=== PATIENT | female | born 1955 | race African-American/Black ===

== ENCOUNTER 2016-08-27 21:57 | Inpatient (IN) | payer BC ==
[2016-08-27] MEDS ORDERED: ONDANSETRON 4 MG/2 ML VIAL ONE (23:00)
[2016-08-27] MEDS ORDERED: morphine CARPU-JECT 4 MG/1 ML DISP.SYRIN ONE (23:00)
[2016-08-27 23:04] LABS: BASOPHIL 0.3 % (0-2.0); EOSINOPHIL 1.7 % (0-4.5); MCH 28.2 pg (25.7-33.7); MCHC 34.1 g/dl (32.0-36.0); MEAN CELL VOLUME 82.8 fl (80-96); MEAN PLT VOLUME 7.4 fl (7.5-11.1); NEUTROPHILS 70.2 % (42.8-82.8); PLATELET COUNT 163 K/MM3 (134-434); RDW 14.2 % (11.6-15.6); WHITE BLOOD COUNT 6.2 K/mm3 (4.0-10.0)
[2016-08-27] MEDS ORDERED: ONDANSETRON 4 MG/2 ML VIAL IVPB ONE (23:10)
[2016-08-27] MEDS ORDERED: morphine CARPU-JECT 4 MG/1 ML DISP.SYRIN IVPUSH ONE (23:10)
[2016-08-27] MEDS ORDERED: SODIUM CHLORIDE 1,000 ML IV STA (23:10)
--- NOTE | 2016-08-27 23:11 | PDOC ---
History of Present Illness - General History Source: Patient Exam Limitations: No Limitations <Og Chandler - Last Filed: 08/28/16 01:23> - General History Source: Patient, Family, Old Records Exam Limitations: No Limitations - History of Present Illness Initial Comments: 08/28/16 01:17 The patient is a 61 year old female, with a significant past medical history of anemia, HTN, diabetes, MA (2011), hepatitis C, chronic pancreatitis and chronic renal insufficiency, who presents to the emergency department with nonradiating epigastric pain since yesterday. The patient additionally reports feeling nauseous and 4 episodes of vomiting. The patient was most recently seen in this ED on 04/04/2016 and was admitted for pancreatitis. The patient states that the symptoms she is experiencing now are the same as when she was admitted for pancreatitis last year. The patient reports feeling weak over the past couple of days. The patient denies chest pain or shortness of breath. The patient denies fever, chills, cough, diarrhea or dysuria. The patient denies a prior history of gallstones or alcohol abuse. Her family is at the bedside. Allergies: Ibuprofen. Past Surgical History: None reported. Social History: Former smoker (quit in 2005). Denies alcohol use. Reports occasional marijuana use. PCP: Dr. Janet Foy <Marlin Pierson - Last Filed: 08/28/16 01:35> - General Chief Complaint: Pain Stated Complaint: STOMACH PAIN Time Seen by Provider: 08/27/16 22:39 Past History - Past Medical History Anemia: No Asthma: Yes Cancer: No Cardiac Disorders: Yes (MA SEPTEMBER 2011) CVA: No COPD: No CHF: No Dementia: No Diabetes: Yes GI Disorders: Yes (PANCREATITIS) Disorders: No HTN: Yes Hypercholesterolemia: No Liver Disease: Yes (hep c) Suicide Attempt (Hx): No Seizures: No Thyroid Disease: No - Surgical History Abdominal Surgery: No Appendectomy: No Cardiac Surgery: No Cholecystectomy: No Lung Surgery: No Neurologic Surgery: No Orthopedic Surgery: No - Immunization History Td Vaccination: No TDAP Vaccination: No Immunization Up to Date: Yes - Psycho/Social/Smoking Cessation Hx Anxiety: No Suicidal Ideation: No Smoking Status: No Smoking History: Never smoked Have you smoked in the past 12 months: No Number of Cigarettes Smoked Daily: 0 If you are a former smoker, when did you quit?: 2005 Information on smoking cessation initiated: No 'Breaking Loose' booklet given: 04/05/16 Hx Alcohol Use: No Drug/Substance Use Hx: No Substance Use Type: Marijuana Hx Substance Use Treatment: No <Og Chandler - Last Filed: 08/28/16 01:23> <Marlin Pierson - Last Filed: 08/28/16 01:35> - Past Medical History Allergies/Adverse Reactions: Allergies Allergy/AdvReac Type Severity Reaction Status Date / Time ibuprofen [From Motrin] Allergy Verified 08/27/16 22:05 Home Medications: Ambulatory Orders Insulin Glargine,Hum.rec.anlog [Lantus (10mL VIAL) -] 20 units SQ DAILY Albuterol Sulfate Inhaler - [Ventolin HFA Inhaler -] 2 inh PO Q4H PRN #1 inh Amlodipine Besylate [Norvasc -] 10 mg PO DAILY #30 tablet 11/22/15 Insulin Sliding Scale [Novolog Vial Sliding Scale -] 1 vial SQ ACHS units 11/21 Amlodipine Besylate [Norvasc -] 2.5 mg PO DAILY 08/27/16 Ascorbate Calcium [Vitamin C] 500 mg PO 08/27/16 Aspirin [ASA -] 81 mg PO DAILY 08/27/16 Cholecalciferol (Vitamin D3) [Vitamin D3] 2,000 unit PO DAILY 08/27/16 Quinapril HCl [Accupril] 10 mg PO DAILY 08/27/16 Review of Systems - Review of Systems Able to Perform ROS?: Yes Comments:: 08/28/16 00:35 GENERAL/CONSTITUTIONAL: +Weakness. No fever or chills. HEAD, EYES, EARS, NOSE AND THROAT: No change in vision. No ear pain or discharge. No sore throat. CARDIOVASCULAR: No chest pain or shortness of breath. RESPIRATORY: No cough, wheezing, or hemoptysis. GASTROINTESTINAL: +Nausea, vomiting, epigastric pain. No diarrhea or constipation. GENITOURINARY: No dysuria, frequency, or change in urination. MUSCULOSKELETAL: No joint or muscle swelling or pain. No neck or back pain. SKIN: No rash. NEUROLOGIC: No headache, vertigo, loss of consciousness, or change in strength/ sensation. ENDOCRINE: No increased thirst. No abnormal weight change. HEMATOLOGIC/LYMPHATIC: No anemia, easy bleeding, or history of blood clots. ALLERGIC/IMMUNOLOGIC: No hives or skin allergy. <Marlin Pierson - Last Filed: 08/28/16 01:35> *Physical Exam - Vital Signs Last Vital Signs Temp Pulse Resp BP Pulse Ox 98.1 F 77 14 153/91 97 08/27/16 22:08 08/27/16 22:08 08/27/16 22:08 08/27/16 22:08 08/27/16 22:08 <Og Chandler - Last Filed: 08/28/16 01:23> - Vital Signs Last Vital Signs Temp Pulse Resp BP Pulse Ox 98.1 F 77 14 153/91 97 08/27/16 22:08 08/27/16 22:08 08/27/16 22:08 08/27/16 22:08 08/27/16 22:08 - Physical Exam Comments: 08/28/16 00:39 GENERAL: Awake, alert, and fully oriented, in no acute distress. HEAD: No signs of trauma. EYES: PERRLA, EOMI, sclera anicteric, conjunctiva clear. ENT: Auricles normal inspection, hearing grossly normal, nares patent, oropharynx clear without exudates. Moist mucosa. NECK: Normal ROM, supple, no lymphadenopathy, JVD, or masses. LUNGS: Breath sounds equal, clear to auscultation bilaterally. No wheezes, and no crackles. HEART: Regular rate and rhythm, normal S1 and S2, no murmurs, rubs or gallops. ABDOMEN: Epigastric tenderness to palpation. Mild RUQ tenderness to palpation. Osseo sign is negative. Soft, normoactive bowel sounds. No guarding, no rebound. No masses. EXTREMITIES: Normal range of motion, no edema. No clubbing or cyanosis. No cords, erythema, or tenderness. NEUROLOGICAL: Cranial nerves II through XII intact. Normal speech, gait is deferred. SKIN: Warm, dry, normal turgor, no rashes or lesions noted. <Marlin Pierson - Last Filed: 08/28/16 01:35> Heart Score/ECG Review #1 ECG reviewed & interpreted by me at: 23:10 08/27/16 23:12 NSR 68, no std/enrique, normal axis, normal intervals, QTC 452 msec <Og Chandler - Last Filed: 08/28/16 01:23> ED Treatment Course - LABORATORY CBC & Chemistry Diagram: 08/27/16 22:58 08/27/16 22:58 - ADDITIONAL ORDERS Additional order review: 08/27/16 22:58 RBC 3.36 L MCV 82.8 MCHC 34.1 RDW 14.2 MPV 7.4 L Neutrophils % 70.2 Lymphocytes % 20.9 D Monocytes % 6.9 Eosinophils % 1.7 Basophils % 0.3 <Og Chandler - Last Filed: 08/28/16 01:23> - LABORATORY CBC & Chemistry Diagram: 08/27/16 22:58 08/27/16 22:58 - ADDITIONAL ORDERS Additional order review: 08/27/16 22:58 RBC 3.36 L MCV 82.8 MCHC 34.1 RDW 14.2 MPV 7.4 L Neutrophils % 70.2 Lymphocytes % 20.9 D Monocytes % 6.9 Eosinophils % 1.7 Basophils % 0.3 - Medications Given in the ED: ED Medications Discontinued Medications Generic Name Dose Route Start Last Admin Trade Name Freq PRN Reason Stop Dose Admin Morphine Sulfate 4 mg 08/27/16 23:10 08/27/16 23:22 Morphine Injection - IVPUSH 08/27/16 23:11 4 mg ONCE ONE Administration Ondansetron HCl 4 mg 08/27/16 23:10 08/27/16 23:22 Zofran Injection IVPB 08/27/16 23:11 4 mg ONCE ONE Administration <Marlin Pierson - Last Filed: 08/28/16 01:35> Medical Decision Making - Medical Decision Making 08/27/16 23:09 A portion of this note was documented by scribe services under my direction. I have reviewed the details of the note, within reason, and agree with the documentation with the following case summary and management plan written by me. Patient treated in the ED. Patient arrives by... to the emergency department. Nursing notes are reviewed and incorporated into the medical decision-making. Vital signs reviewed. Peripheral IV access obtained by the nurse, laboratory studies are drawn and sent, reviewed and interpreted by myself. Vital Signs Temp Pulse Resp BP Pulse Ox 98.1 F 77 14 153/91 97 08/27/16 22:08 08/27/16 22:08 08/27/16 22:08 08/27/16 22:08 08/27/16 22:08 61 year old female with past medical history of hepatitis C, diabetes, chronic pancreatitis, chronic renal insufficiency, anemia, hypertension presents with epigastric pain since yesterday. Denies radiation but reports nausea and 4 episodes of vomiting. She reports that this feels exactly like her pancreatitis. Denies history of gallstones or alcohol use. Denies fevers or chills. Does report feeling generally weak. Denies midsternal chest pain. We'll rule out pancreatitis. Labs including lipase. Low suspicion for acute coronary syndrome but we'll send a troponin and EKG and chest x-ray. 08/28/16 01:23 CBC, BMP 08/27/16 22:58 08/27/16 22:58 CMP Sodium 141 mmol/L (136-145) 08/27/16 22:58 Potassium 4.1 mmol/L (3.5-5.1) 08/27/16 22:58 Chloride 111 mmol/L (98-107) H 08/27/16 22:58 Carbon Dioxide 25 mmol/L (21-32) 08/27/16 22:58 Anion Gap 5 (8-16) L 08/27/16 22:58 BUN 31 mg/dL (7-18) H D 08/27/16 22:58 Creatinine 2.5 mg/dL (0.55-1.02) H D 08/27/16 22:58 Creat Clearance w eGFR 19.45 (>60) 08/27/16 22:58 Random Glucose 53 mg/dL (74-106) L D 08/27/16 22:58 Calcium 8.3 mg/dL (8.5-10.1) L 08/27/16 22:58 Total Bilirubin 0.3 mg/dL (0.2-1.0) 08/27/16 22:58 AST 13 U/L (15-37) L D 08/27/16 22:58 ALT 15 U/L (12-78) D 08/27/16 22:58 Alkaline Phosphatase 64 U/L (45-117) D 08/27/16 22:58 Creatine Kinase 107 IU/L (26-192) 08/27/16 22:58 Troponin I < 0.02 ng/ml (0.00-0.05) 08/27/16 22:58 Total Protein 6.9 g/dl (6.4-8.2) D 08/27/16 22:58 Albumin 3.4 g/dl (3.4-5.0) D 08/27/16 22:58 Lipase 05698 U/L (73-393) H 08/27/16 22:58 Ultrasound ordered, pending official read. Lipase 55696. Pancreatitis. Case discussed with Dr. Suresh. She accepts the patient for med/surg admission. Case discussed in detail with admitting physician including history, physical exam and ancillary studies. Admitting physician has assumed care for the patient, will follow all pending diagnostics and will complete the evaluation and treatment. <Og hCandler - Last Filed: 08/28/16 01:23> - Medical Decision Making 08/28/16 01:35 EXAM: US/ ABDOMEN US - LIMITED Reviewed By: Dr. Jitendra Capone IMPRESSION: Normal appearance of the liver, pancreas and gallbladder. Mild to moderate ectasia of the CBD. Increased echogenicity of the right renal parenchyma. Parenchymal disease can have this appearance. Further evaluation of this process in indicated. <Marlin Pierson - Last Filed: 08/28/16 01:35> *DC/Admit/Observation/Transfer - Discharge Dispostion Admit: Yes <Og Chandler - Last Filed: 08/28/16 01:23> - Attestations Scribe Attestion: 08/27/16 23:25 Documentation prepared by Marlin Pierson, acting as medical sales associate for Og Chandler MD. <Marlin Pierson - Last Filed: 08/28/16 01:35> Diagnosis at time of Disposition: Pancreatitis Qualifiers: Chronicity: acute Pancreatitis type: unspecified pancreatitis type Qualified Code(s): K85.9 - Acute pancreatitis, unspecified - Referrals Referrals: STAFF,NOT ON [Primary Care Provider] -
[2016-08-27 23:16] LABS: INR 1.03 (0.82-1.09); PROTHROMBIN TIME (PATIENT) 11.3 SEC (9.98-11.88)
[2016-08-27 23:18] LABS: ACTIVATED PTT 32.7 SECONDS (26.9-34.4)
[2016-08-27 23:55] LABS: ALBUMIN 3.4 g/dl (3.4-5.0); ANION GAP 5 (8-16); CALCIUM 8.3 mg/dL (8.5-10.1); CO2 25 mmol/L (21-32); CREATININE 2.5 mg/dL (0.55-1.02); GLUCOSE,RANDOM 53 mg/dL (74-106); SGOT/AST 13 U/L (15-37); SGPT/ALT 15 U/L (12-78)
[2016-08-27 23:59] LABS: ALK PHOS 64 U/L (45-117); BILIRUBIN,TOTAL 0.3 mg/dL (0.2-1.0); TOT PROT 6.9 g/dl (6.4-8.2); TROPONIN I < 0.02 ng/ml (0.00-0.05)
[2016-08-28] MEDS ORDERED: SODIUM CHLORIDE 1,000 ML IV SCH (00:45)
--- NOTE | 2016-08-28 01:10 | HP ---
CHIEF COMPLAINT: Abdominal Pain, Vomiting PCP: PMD Not on staff HISTORY OF PRESENT ILLNESS: This is a 61 y/o female with a PMHx of: Hepatitis C (on Zepatier), [place], HTN, DM, Chronic Renal Insufficiency, Anemia, Asthma. Who presents to the emergency department with epigastric pain and vomiting x 1 day. Patient reports having 4- 5 non-hematemesis vomiting episodes. Patient reports the pain as sharp and constant. Patient denies drinking alcohol or eating any foods that would exacerbate her condition. Patient denies fever, chills, cough, SOB, CP, diarrhea , constipation, dysuria. ER course was notable for: (1) Lipase 06626 (2) BUN 31, Cr 2.5 (3) Glucose 53 Recent Travel: None PAST MEDICAL HISTORY: See HPI PAST SURGICAL HISTORY: See HPI Social History: Smoking: Former Alcohol: Denies Drugs: Marijuana daily (medicinal for appetite stimulator) Family History: Father: Cardiac Mother- Hodgkin's Lymphoma Allergies ibuprofen [From Motrin] Allergy (Verified 08/27/16 22:05) HOME MEDICATIONS: Home Medications Medication Instructions Recorded Insulin Glargine,Hum.rec.anlog 20 units SQ DAILY 11/17/15 [Lantus (10mL VIAL) -] Albuterol Sulfate Inhaler - 2 inh PO Q4H PRN #1 inh 11/22/15 [Ventolin HFA Inhaler -] Amlodipine Besylate [Norvasc -] 10 mg PO DAILY #30 tablet 11/22/15 Insulin Sliding Scale [Novolog 1 vial SQ ACHS units 11/22/15 Vial Sliding Scale -] Amlodipine Besylate [Norvasc -] 2.5 mg PO DAILY 08/27/16 Ascorbate Calcium [Vitamin C] 500 mg PO 08/27/16 Aspirin [ASA -] 81 mg PO DAILY 08/27/16 Cholecalciferol (Vitamin D3) 2,000 unit PO DAILY 08/27/16 [Vitamin D3] Quinapril HCl [Accupril] 10 mg PO DAILY 08/27/16 REVIEW OF SYSTEMS CONSTITUTIONAL: Absent: fever, chills, diaphoresis, generalized weakness, malaise, loss of appetite, weight change HEENT: Absent: rhinorrhea, nasal congestion, throat pain, throat swelling, difficulty swallowing, mouth swelling, ear pain, eye pain, visual changes CARDIOVASCULAR: Absent: chest pain, syncope, palpitations, irregular heart rate, lightheadedness , peripheral edema RESPIRATORY: Absent: cough, shortness of breath, dyspnea with exertion, orthopnea, wheezing, stridor, hemoptysis GASTROINTESTINAL: abdominal pain, nausea, vomiting Absent: abdominal distension, diarrhea, constipation, melena, hematochezia GENITOURINARY: Absent: dysuria, frequency, urgency, hesitancy, hematuria, flank pain, genital pain MUSCULOSKELETAL: Absent: myalgia, arthralgia, joint swelling, back pain, neck pain SKIN: Absent: rash, itching, pallor HEMATOLOGIC/IMMUNOLOGIC: Absent: easy bleeding, easy bruising, lymphadenopathy, frequent infections ENDOCRINE: Absent: unexplained weight gain, unexplained weight loss, heat intolerance, cold intolerance NEUROLOGIC: Absent: headache, focal weakness or paresthesias, dizziness, unsteady gait, seizure, mental status changes, bladder or bowel incontinence PSYCHIATRIC: Absent: anxiety, depression, suicidal or homicidal ideation, hallucinations. PHYSICAL EXAMINATION Vital Signs - 24 hr 08/27/16 22:08 Temperature 98.1 F Pulse Rate 77 Respiratory 14 Rate Blood Pressure 153/91 O2 Sat by Pulse 97 Oximetry (%) GENERAL: Awake, alert, and fully oriented, in no acute distress. HEAD: Normal with no signs of trauma. EYES: Pupils equal, round and reactive to light, extraocular movements intact, sclera anicteric, conjunctiva clear. No lid lag. EARS, NOSE, THROAT: Ears normal, nares patent, oropharynx clear without exudates. Moist mucous membranes. NECK: Normal range of motion, supple without lymphadenopathy, JVD, or masses. LUNGS: Breath sounds equal, clear to auscultation bilaterally. No wheezes, and no crackles. No accessory muscle use. HEART: Regular rate and rhythm, normal S1 and S2 without murmur, rub or gallop. ABDOMEN: +tenderness to Epigastrium, RUQ +guarding. Soft, not distended, normoactive bowel sounds. no rebound, no masses. No hepatomegaly or splenomegaly. MUSCULOSKELETAL: Normal range of motion at all joints. No bony deformities or tenderness. No CVA tenderness. UPPER EXTREMITIES: 2+ pulses, warm, well-perfused. No cyanosis. No clubbing. Cap refill <2 seconds. No peripheral edema. LOWER EXTREMITIES: 2+ pulses, warm, well-perfused. No calf tenderness. No peripheral edema. NEUROLOGICAL: Cranial nerves II-XII intact. Normal speech. Gait not observed. PSYCHIATRIC: Cooperative. Good eye contact. Appropriate mood and affect. SKIN: Warm, dry, normal turgor, no rashes or lesions noted. Laboratory Results - last 24 hr 08/27/16 08/27/16 08/27/16 22:58 22:58 22:58 WBC 6.2 RBC 3.36 L Hgb 9.5 L D Hct 27.8 L MCV 82.8 MCHC 34.1 RDW 14.2 Plt Count 163 MPV 7.4 L Neutrophils % 70.2 Lymphocytes % 20.9 D Monocytes % 6.9 Eosinophils % 1.7 Basophils % 0.3 INR 1.03 PTT (Actin FS) 32.7 Sodium 141 Potassium 4.1 Chloride 111 H Carbon Dioxide 25 Anion Gap 5 L BUN 31 H D Creatinine 2.5 H D Creat Clearance w eGFR 19.45 Random Glucose 53 L D Calcium 8.3 L Total Bilirubin 0.3 AST 13 L D ALT 15 D Alkaline Phosphatase 64 D Creatine Kinase 107 Troponin I < 0.02 Total Protein 6.9 D Albumin 3.4 D Lipase 94072 H ASSESSMENT/PLAN: This is a 61 y/o female with a PMHx of: Hepatitis C, HTN, CA, Pancreatitis, DM, Asthma, Chronic Renal Insufficiency, Anemia. Who presents to the ED with epigastric pain and vomiting. Admitted for Acute on Chronic Pancreatitis for further evaluation of their emergent condition. Plan: FEN - D50.45NS@75ml/hr - Replete lytes prn - NPO Code Status: Full Code Dispo: Inpatient medical care required Problem List - Problem (1) Pancreatitis Assessment/Plan: - Patient has a hx of pancreatitis, her last attack was last fall. Patient reports being compliance with her medications and refraining from Alcohol. - Lipase 17483 - Given IVF, Morphine, Zofran in ED - Will continue IVF - Continue Morphine and Zofran - Monitor CBC - Consider GI if condition worsens Code(s): K85.9 - ACUTE PANCREATITIS, UNSPECIFIED * DO NOT USE * Qualifiers: Chronicity: acute Pancreatitis type: unspecified pancreatitis type Qualified Code(s): K85.9 - Acute pancreatitis, unspecified (2) Abdominal pain Assessment/Plan: - Likely secondary to Acute on Chronic Pancreatitis - See Above Code(s): R10.9 - UNSPECIFIED ABDOMINAL PAIN (3) Acute on chronic renal failure Assessment/Plan: - Cr 2.5 at Baseline - Monitor renal function - Avoid nephrotoxic drugs - f/u with Nephrology in outpatient upon d/c Code(s): N17.9 - ACUTE KIDNEY FAILURE, UNSPECIFIED N18.9 - CHRONIC KIDNEY DISEASE, UNSPECIFIED (4) Asthma Assessment/Plan: - Well Controlled - Not using Albuterol per patient - Continue to monitor and treat with interventions accordingly Code(s): J45.909 - UNSPECIFIED ASTHMA, UNCOMPLICATED (5) Diabetes Assessment/Plan: - BGMs - Will hold ISS for now 2/2 serum glucose 55 Code(s): E11.9 - TYPE 2 DIABETES MELLITUS WITHOUT COMPLICATIONS (6) Hypertension Assessment/Plan: - Monitor BP - Continue home meds Code(s): I10 - ESSENTIAL (PRIMARY) HYPERTENSION (7) DVT prophylaxis Assessment/Plan: - OOB - SCDs - Heparin SQ Code(s): OCD2303 - Visit type - Emergency Visit Emergency Visit: Yes ED Registration Date: 08/28/16 Care time: The patient presented to the Emergency Department on the above date and was hospitalized for further evaluation of their emergent condition. - New Patient This patient is new to me today: Yes Date on this admission: 08/28/16 - Critical Care Critical Care patient: No
[2016-08-28] MEDS ORDERED: morphine CARPU-JECT 4 MG/1 ML DISP.SYRIN IVPUSH ONE (01:23)
[2016-08-28] MEDS ORDERED: morphine CARPU-JECT 4 MG/1 ML DISP.SYRIN ONE (01:24)
[2016-08-28] MEDS ORDERED: DEXTROSE 5%-0.45% SALINE 1,000 ML IV SCH (03:15)
[2016-08-28 03:57] VITALS: BMI 19.9
[2016-08-28 07:45] LABS: BASOPHIL 0.4 % (0-2.0); EOSINOPHIL 0.5 % (0-4.5); MCH 27.5 pg (25.7-33.7); MCHC 32.6 g/dl (32.0-36.0); MEAN CELL VOLUME 84.2 fl (80-96); MEAN PLT VOLUME 7.9 fl (7.5-11.1); NEUTROPHILS 82.7 % (42.8-82.8); PLATELET COUNT 140 K/MM3 (134-434); RDW 14.4 % (11.6-15.6); WHITE BLOOD COUNT 4.7 K/mm3 (4.0-10.0)
[2016-08-28 08:16] LABS: CALCIUM 7.6 mg/dL (8.5-10.1); CREATININE 2.4 mg/dL (0.55-1.02)
[2016-08-28] MEDS: LACTATED RINGERS SOLUTION 1,000 ML IV SCH ×2 (08:33→15:27)
[2016-08-28] MEDS: ZEPATIER PO SCH (08:44)
[2016-08-28] MEDS: morphine CARPU-JECT 2 MG/1 ML DISP.SYRIN IVPUSH PRN ×3 (09:56→21:30)
[2016-08-28] MEDS: ONDANSETRON 4 MG/2 ML VIAL IVPB PRN ×3 (10:01→18:19)
[2016-08-28 11:52] LABS: URINE APPEARANCE CLEAR; URINE BILIRUBIN NEGATIVE (NEGATIVE); URINE BLOOD NEGATIVE (NEGATIVE); URINE COLOR STRAW; URINE GLUCOSE (UA) NEGATIVE (NEGATIVE); URINE KETONE NEGATIVE (NEGATIVE); URINE LEUK ESTERASE NEGATIVE (NEGATIVE); URINE NITRITE NEGATIVE (NEGATIVE); URINE PROTEIN 2+ (NEGATIVE); URINE UROBILINOGEN NEGATIVE E.U./dl (0.2-1.0)
[2016-08-28 11:54] LABS: URINE MUCUS FEW; URINE RBC 6 /hpf (0-3); URINE WBC 1 /hpf (3-5)
--- NOTE | 2016-08-28 12:08 | HOSP ---
Physical Examination Vital Signs: Vital Signs Temperature 99 F 08/28/16 08:00 Pulse Rate 79 08/28/16 08:00 Respiratory Rate 18 08/28/16 08:00 Blood Pressure 150/81 08/28/16 08:00 O2 Sat by Pulse Oximetry (%) 98 08/28/16 04:04 Labs: CBC, BMP 08/28/16 06:30 08/28/16 06:30 Hospitalist Encounter Assessment: Subjective: Pt seen and examined. She states she is feeling about the same. Her pain is improved by morphine, no further vomiting. Denies fever, chills. Events: Low grade fever 99 Objective: PE Neuro: alert, awake, cn 2-12intact Pulm: CTAB CV: s1 s2 rrr no mrg Abd: ++melina umbilical tenderness to light palpation, soft, low abd scar healed Ext: warm, no le edema CBCD WBC 4.7 K/mm3 (4.0-10.0) 08/28/16 06:30 RBC 3.33 M/mm3 (3.60-5.2) L 08/28/16 06:30 Hgb 9.2 GM/dL (10.7-15.3) L 08/28/16 06:30 Hct 28.0 % (32.4-45.2) L 08/28/16 06:30 MCV 84.2 fl (80-96) 08/28/16 06:30 MCHC 32.6 g/dl (32.0-36.0) 08/28/16 06:30 RDW 14.4 % (11.6-15.6) 08/28/16 06:30 Plt Count 140 K/MM3 (134-434) 08/28/16 06:30 MPV 7.9 fl (7.5-11.1) 08/28/16 06:30 08/27/16 08/28/16 22:58 06:30 Triglycerides 80 D Cholesterol 125 Total LDL Cholesterol 76 HDL Cholesterol 62 H Total Amylase 557 H D Lipase 48067 H Current Medications Generic Name Dose Route Start Last Admin Trade Name Freq PRN Reason Stop Dose Admin Lactated Ringer's 1,000 mls @ 125 mls/hr 08/28/16 07:15 08/28/16 08:33 Lactated Ringers Solution IV 125 mls/hr ASDIR MELISSA Administration Morphine Sulfate 2 mg 08/28/16 02:22 08/28/16 09:56 Morphine Injection - IVPUSH 2 mg Q4H PRN Administration PAIN Non-Formulary Med 1 each 08/28/16 08:45 08/28/16 08:44 Zepatier 50 Mg/100 PO Not Given Mg DAILY@0700 [facility] Ondansetron HCl 4 mg 08/28/16 01:18 08/28/16 10:01 Zofran Injection IVPB 4 mg Q6H PRN Administration NAUSEA Imaging: - Abd US: mild-mod ectasia CBD, no calculi, sludge, increase right renal parenchyma Assessment: 61 year old female with pmhx Hepatitis C (on Zepatier), [place], HTN, DM II, CKD, Anemia, Asthma admitted with epigastric pain and vomiting x 1 day. Patient reports having 4-5 non-hematemesis vomiting episodes. Plan: 1. Acute Pancreatitis - Unclear etiology, denies ETOH and no GB stones noted - LR @ 125cc/hr - CTAP w/o contrast - Morphine PRN pain - NPO - GI consulted 2. Hx of Hep C - Continue Zepatier (pharmacy has profiled med, pt took this AM) 3. TARAS on CKD - Possible d/t to dehydration 2/2 vomiting - Pt sees Dr. Arajuo as outpt as of 1month ago - US shows unchanged hyperechoic right kidney - D/w Dr. Dempsey will see pt, and aware of LR, K is stable 4. HTN - Hold PO norvasc and accupril - Will give IV as needed 5. Anemia - Possibly of chronic dz - Currently, hgb stable - Iron studies ordered 6. DM II - Low blood sugars since admission, will monitor give dextrose prn - ISS, BGM ACHS - Pt reports being sensitive to novolog - Check Hgb a1c
[2016-08-28] MEDS ORDERED: PT OWN MED DRAWER 7, Y5N ONE (12:28)
--- NOTE | 2016-08-28 15:11 | CONSULT ---
Consult - text type - Consultation Consultation Note: Renal Consult for CKD and Proteinuria This is a 61 year old woman with PMhx of CKD Stage 4 with Baseline Cr ~2.2-2.4, Hepatitis C, Pancreatitis, Hypertension, DM > 20 years who presented to the ED with complaints of Epigastric Abd pain and N/V and found to have acute pancreatitis with BUN/Cr of 29/2.4. Pt is followed by Dr. Naa Christensen for her CKD. Pt continues to have 7/10 abd pain. No further Nausea/Vomiting as she is NPO. Reports good urine output. NO NSAID use. No recent contrast exposure. No flank pain. No Hx of kidney stones or recurrent UTIs. No sob or chest pain. No fever or chills. Denies any ETOH use. No Hx of gullstones. PMhx: as per HPI Allergies: NKDA Family Hx: NC Social hx: No T/A/D ROS: as per HPI, all other pertinent ros negative Home Meds: Home Medications Medication Instructions Recorded Insulin Glargine,Hum.rec.anlog 20 units SQ DAILY 11/17/15 [Lantus (10mL VIAL) -] Albuterol Sulfate Inhaler - 2 inh PO Q4H PRN #1 inh 11/22/15 [Ventolin HFA Inhaler -] Amlodipine Besylate [Norvasc -] 10 mg PO DAILY #30 tablet 11/22/15 Insulin Sliding Scale [Novolog 1 vial SQ ACHS units 11/22/15 Vial Sliding Scale -] Amlodipine Besylate [Norvasc -] 2.5 mg PO DAILY 08/27/16 Ascorbate Calcium [Vitamin C] 500 mg PO DAILY 08/27/16 Aspirin [ASA -] 81 mg PO DAILY 08/27/16 Cholecalciferol (Vitamin D3) 2,000 unit PO DAILY 08/27/16 [Vitamin D3] Quinapril HCl [Accupril] 10 mg PO DAILY 08/27/16 Elbasvir/Grazoprevir [Zepatier 1 each PO 08/28/16 50-100 mg Tablet] Vital Signs Temperature 98.4 F 08/28/16 14:28 Pulse Rate 73 08/28/16 14:28 Respiratory Rate 18 08/28/16 08:00 Blood Pressure 155/70 08/28/16 14:28 O2 Sat by Pulse Oximetry (%) 98 08/28/16 04:04 Intake & Output 08/25/16 08/26/16 08/27/16 08/28/16 23:59 23:59 23:59 23:59 Intake Total 100 Balance 100 Weight 106 lb 105 lb 9.6 oz Gen: Mild distress from Abd pain HEENT: NC/AT, Dry MM, No JVD CVS: RRR, No M/R Lungs :CTA Abd: soft + tenderness Ext: No edema, clubbing or cyanosis : No bladder distension Neurou: AAOx3, no focal defects CBC, BMP 08/28/16 06:30 08/28/16 06:30 Current Medications Lactated Ringer's (Lactated Ringers Solution) 1,000 mls @ 125 mls/hr IV ASDIR [facility] Last Admin: 08/28/16 08:33 Dose: 125 mls/hr Morphine Sulfate (Morphine Injection -) 2 mg IVPUSH Q4H PRN PRN Reason: PAIN Last Admin: 08/28/16 09:56 Dose: 2 mg Non-Formulary Med Zepatier 50 Mg/100 Mg 1 each PO DAILY@0700 [facility] Last Admin: 08/28/16 08:44 Dose: Not Given Ondansetron HCl (Zofran Injection) 4 mg IVPB Q6H PRN PRN Reason: NAUSEA Last Admin: 08/28/16 10:01 Dose: 4 mg A/p 61 year old woman with PMhx of CKD Stage 4 with Baseline Cr ~2.2-2.4, Hepatitis C, Pancreatitis, Hypertension, DM > 20 years who presented to the ED with complaints of Epigastric Abd pain and N/V and found to have acute pancreatitis with BUN/Cr of 29/2.4. #CKD Stage 4 with sub-nephrotic proteinuria etiology of CKD likey diabetic nephropathy given long standing DM. Less likely GN (MPGN) given normal serologic studies BUN/Cr at baseline, although worsening in renal function noted over the past year. Pt is now on ACEi (not on HERBIE during November admission which could contribute to sligthly worsening GFR) Hold ACEi for now as pt is NPO and has acute pancreatitis Continue IVF hydration - LR is ok as long as K is stable Dose all meds for Cr Cl less then 20 Pt may benifit from renal scan to r/o obstruction (US done in November showed dilated renal pelvis on Right kIdney) but can be done as outpatient Check Phos levels Check Rheum Factor #Acute Pancreatitis continue pain control and IVF Imaging studies as per primary GI Evaluation #Hypertension Trend BP if consistently > 150/100 restart amlodpine #DM Check Hgb A1C insulin sliding scale as needed #Hepatitis C Continue tx as per GI Thank you Will follow
--- NOTE | 2016-08-28 16:37 | EKG ---
Test Reason : Blood Pressure : / mmHG Vent. Rate : 068 BPM Atrial Rate : 068 BPM P-R Int : 134 ms QRS Dur : 090 ms QT Int : 426 ms P-R-T Axes : 073 021 075 degrees QTc Int : 452 ms NORMAL SINUS RHYTHM WITH SINUS ARRHYTHMIA POSSIBLE LEFT ATRIAL ENLARGEMENT POOR R WAVE PROGRESSION Confirmed by MD ULISES, ADRYAN ([id number]) on 08/28/2016 4:37:18 PM Referred By: Confirmed By:ADRYAN MONTGOMERY MD
--- NOTE | 2016-08-28 18:17 | CON.GI ---
Consult Consult Specialty:: Gastroenterology Referred by:: Dr. Menjivar Reason for Consultation:: Abdominal pain and vomiting - History of Present Illness Chief Complaint: Sudden onset epigastric pain and vomiting yesterday History of Present Illness: 61W diabetic, being treated for HCV with Zepatier ( by my associate Dr Orellana- recently started) and h/o chronic pancreatitis related to pancreas divisum developed severe epigastric pain and vomiting yesterday. It is reminiscent of her previous bouts with pancreatitis. She recalls that attempt were made by Dr Donis at [facility] to do a minor sphincterotomy but this was unsuccessful. She stopped using alcohol many years ago and had a single cocktail on but not since. Her last colonoscopy was done by Dr. Collado in 2010 when a hyperplastic rectal polyp was removed. A right colon lipoma was noted as well as diverticulosis. EGD on 09/18/11 revealed an antral ulcer and GERD. - History Source History Provided By: Patient Limitations to Obtaining History: No Limitations - Past Medical History Cardio/Vascular: Yes: HTN, [place] (on 1999 with unsuccessful stenting), Other ( peripheral vascular disease) Pulmonary: Yes: COPD Gastrointestinal: Yes: Diverticulosis, GERD, Pancreatitis (pancreas divisum), Other (hyperplastic rectal polyp 2010, antral ulcer 2011) Hepatobiliary: Yes: Hepatitis C (being treated with Zepatier week 8) Renal/: Yes: Renal Inusuff Reproductive: Yes: Ectopic (x 2) Infectious Disease: Yes: Other (hep c) Endocrine: Yes: Diabetes Mellitus (retinopathy, neuropathy and nephropathy ) - Past Surgical History Past Surgical History: Yes: , Hysterectomy (leaving left ovary inact), Tonsillectomy Additional Surgical History: bunionectomy - Alcohol/Substance Use Hx Alcohol Use: No - Smoking History Smoking history: Former smoker Have you smoked in the past 12 months: No Aproximately how many cigarettes per day: 0 If you are a former smoker, when did you quit?: 2005 - Social History Usual Living Arrangement: With Spouse ADL: Independent 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 [employer] [address] of : [employer] History of Recent Travel: Yes Home Medications - Allergies Allergies/Adverse Reactions: Allergies Allergy/AdvReac Type Severity Reaction Status Date / Time ibuprofen [From Motrin] Allergy Verified 08/27/16 22:05 - Home Medications Home Medications: Ambulatory Orders Insulin Glargine,Hum.rec.anlog [Lantus (10mL VIAL) -] 20 units SQ DAILY Albuterol Sulfate Inhaler - [Ventolin HFA Inhaler -] 2 inh PO Q4H PRN #1 inh Amlodipine Besylate [Norvasc -] 10 mg PO DAILY #30 tablet 11/22/15 Insulin Sliding Scale [Novolog Vial Sliding Scale -] 1 vial SQ ACHS units 11/21 Amlodipine Besylate [Norvasc -] 2.5 mg PO DAILY 08/27/16 Ascorbate Calcium [Vitamin C] 500 mg PO DAILY 08/27/16 Aspirin [ASA -] 81 mg PO DAILY 08/27/16 Cholecalciferol (Vitamin D3) [Vitamin D3] 2,000 unit PO DAILY 08/27/16 Quinapril HCl [Accupril] 10 mg PO DAILY 08/27/16 Elbasvir/Grazoprevir [Zepatier 50-100 mg Tablet] 1 each PO 08/28/16 Family Disease History - Family Disease History Family Disease History: Diabetes: Sister (CVA), CA: Mother (Hodgkins Disease), Other: Sister Other Family History: Maternal aunt with lung cancer. maternal GM had ovarian cancer Review of Systems - Review of Systems Constitutional: reports: No Symptoms Eyes: reports: No Symptoms, Blurred Vision HENT: reports: No Symptoms Neck: reports: No Symptoms Cardiovascular: reports: No Symptoms Respiratory: reports: Exercise Intolerance Gastrointestinal: reports: Abdominal Pain, Vomiting Physical Exam-GI Vital Signs: Vital Signs Temperature 98.4 F 08/28/16 14:28 Pulse Rate 73 08/28/16 14:28 Respiratory Rate 18 08/28/16 08:00 Blood Pressure 155/70 08/28/16 14:28 O2 Sat by Pulse Oximetry (%) 98 08/28/16 04:04 CBC,CMP WBC 4.7 K/mm3 (4.0-10.0) 08/28/16 06:30 RBC 3.33 M/mm3 (3.60-5.2) L 08/28/16 06:30 Hgb 9.2 GM/dL (10.7-15.3) L 08/28/16 06:30 Hct 28.0 % (32.4-45.2) L 08/28/16 06:30 MCV 84.2 fl (80-96) 08/28/16 06:30 MCHC 32.6 g/dl (32.0-36.0) 08/28/16 06:30 RDW 14.4 % (11.6-15.6) 08/28/16 06:30 Plt Count 140 K/MM3 (134-434) 08/28/16 06:30 MPV 7.9 fl (7.5-11.1) 08/28/16 06:30 Neutrophils % 82.7 % (42.8-82.8) 08/28/16 06:30 Lymphocytes % 10.8 % (8-40) D 08/28/16 06:30 Monocytes % 5.6 % (3.8-10.2) 08/28/16 06:30 Eosinophils % 0.5 % (0-4.5) 08/28/16 06:30 Basophils % 0.4 % (0-2.0) 08/28/16 06:30 Sodium 145 mmol/L (136-145) 08/28/16 06:30 Potassium 4.7 mmol/L (3.5-5.1) 08/28/16 06:30 Chloride 116 mmol/L (98-107) H 08/28/16 06:30 Carbon Dioxide 22 mmol/L (21-32) 08/28/16 06:30 Anion Gap 7 (8-16) L 08/28/16 06:30 BUN 29 mg/dL (7-18) H 08/28/16 06:30 Creatinine 2.4 mg/dL (0.55-1.02) H 08/28/16 06:30 Creat Clearance w eGFR 19.45 (>60) 08/27/16 22:58 POC Glucometer 77 UNITS (()) 08/28/16 05:55 Random Glucose 67 mg/dL (74-106) L D 08/28/16 06:30 Calcium 7.6 mg/dL (8.5-10.1) L 08/28/16 06:30 Total Bilirubin 0.3 mg/dL (0.2-1.0) 08/27/16 22:58 AST 13 U/L (15-37) L D 08/27/16 22:58 ALT 15 U/L (12-78) D 08/27/16 22:58 Alkaline Phosphatase 64 U/L (45-117) D 08/27/16 22:58 Creatine Kinase 107 IU/L (26-192) 08/27/16 22:58 Troponin I < 0.02 ng/ml (0.00-0.05) 08/27/16 22:58 Total Protein 6.9 g/dl (6.4-8.2) D 08/27/16 22:58 Albumin 3.4 g/dl (3.4-5.0) D 08/27/16 22:58 Triglycerides 80 mg/dL (35-160) D 08/28/16 06:30 Cholesterol 125 mg/dL (50-200) 08/28/16 06:30 Total LDL Cholesterol 76 mg/dL (5-100) 08/28/16 06:30 HDL Cholesterol 62 mg/dL (40-60) H 08/28/16 06:30 Total Amylase 557 U/L (25-115) H D 08/28/16 06:30 Lipase 78333 U/L (73-393) H 08/27/16 22:58 Current Medications Generic Name Dose Route Start Last Admin Trade Name Freq PRN Reason Stop Dose Admin Lactated Ringer's 1,000 mls @ 125 mls/hr 08/28/16 07:15 08/28/16 15:27 Lactated Ringers Solution IV 125 mls/hr ASDIR [facility] Administration Morphine Sulfate 2 mg 08/28/16 02:22 08/28/16 15:11 Morphine Injection - IVPUSH 2 mg Q4H PRN Administration PAIN Non-Formulary Med 1 each 08/28/16 08:45 08/28/16 08:44 Zepatier 50 Mg/100 PO Not Given Mg DAILY@0700 [facility] Ondansetron HCl 4 mg 08/28/16 01:18 08/28/16 18:19 Zofran Injection IVPB 4 mg Q6H PRN Administration NAUSEA Constitutional: Yes: Calm Eyes: Yes: Conjunctiva Clear HENT: Yes: Normocephalic Neck: Yes: Supple Cardiovascular: Yes: Regular Rate and Rhythm Respiratory: Yes: CTA Bilaterally Gastrointestinal Inspection: Yes: Distention, Scars (healed vertical right paramedian suprapubic incision) ...Auscultate: Yes: Normoactive Bowel Sounds ...Palpate: Yes: Tenderness, Epigastium ...Percussion: Yes: Tympanitic ...Rectal Exam: Yes: Deferred (patient declined) Labs: CBC, BMP 08/28/16 06:30 08/28/16 06:30 INR, PTT INR 1.03 (0.82-1.09) 08/27/16 22:58 Imaging - Results Ultrasound: Report Reviewed (mild CBD ectasia) Assessment/Plan Flare of chronic recurring pancreatitis apparently related to pancreas divisum. Do not believe that it is drug related. Will try clear liquids. Can advance diet as tolerated. Dr Richey will be covering. Will resume Zepatier when discharged.
[2016-08-28] MEDS ORDERED: ALBUTEROL SO4 6.7 GM HFA INHALER IH PRN (18:54)
[2016-08-28] MEDS: amLODIPine BESYLATE 10 MG TABLET (FP) PO SCH (21:00)
[2016-08-28] MEDS: METOCLOPRAMIDE HCL INJECTION 10 MG/2 ML VIAL IVPB SCH (21:30)
[2016-08-28] MEDS: QUINAPRIL HCL 10 MG TABLET (FP) PO SCH (21:30)
[2016-08-29] MEDS ORDERED: ALBUTEROL SO4 2.5/IPRATROPIUM 0.5 INH SOL 3 ML VIAL.NEB. NEB SCH (00:45)
[2016-08-29] MEDS: LACTATED RINGERS SOLUTION 1,000 ML IV SCH (02:30)
[2016-08-29] MEDS: METOCLOPRAMIDE HCL INJECTION 10 MG/2 ML VIAL IVPB SCH ×4 (02:58→21:04)
[2016-08-29] MEDS ORDERED: PT OWN MED DRAWER 7, Y5N ONE (06:08)
[2016-08-29] MEDS: morphine CARPU-JECT 2 MG/1 ML DISP.SYRIN IVPUSH PRN ×2 (06:32→20:55)
[2016-08-29] MEDS: ZEPATIER PO SCH (06:34)
[2016-08-29] MEDS: ONDANSETRON 4 MG/2 ML VIAL IVPB PRN ×2 (06:38→16:09)
[2016-08-29 08:08] LABS: AMYLASE 225 U/L (25-115); C-REACTIVE PROTEIN < 0.3 MG/DL (0.00-0.3)
[2016-08-29 08:22] LABS: BILIRUBIN,TOTAL 0.3 mg/dL (0.2-1.0); CALCIUM 7.7 mg/dL (8.5-10.1); CREATININE 2.4 mg/dL (0.55-1.02); MAGNESIUM 1.6 mg/dL (1.8-2.4); PHOSPHOROUS 3.3 mg/dL (2.5-4.9); TOT PROT 6.1 g/dl (6.4-8.2)
[2016-08-29] MEDS ORDERED: MAGNESIUM SULF 50% (8.12 MEQ/2 ML-1 GM VIAL) IVPB ONE (09:30)
[2016-08-29] MEDS: QUINAPRIL HCL 10 MG TABLET (FP) PO SCH (09:37)
[2016-08-29] MEDS: amLODIPine BESYLATE 10 MG TABLET (FP) PO SCH (09:37)
[2016-08-29] MEDS: ASPIRIN 81 MG CHEWABLE TABLETS PO SCH (09:37)
--- NOTE | 2016-08-29 11:10 | PN ---
Progress Note (short form) - Note Progress Note: Renal follow up for CKD/Proteinuria Pt seen and examined at the bedside continues to have abd pain but is improved + nausea but no vomiting Vital Signs Temperature 100 F H 08/29/16 05:00 Pulse Rate 82 08/29/16 10:00 Respiratory Rate 18 08/29/16 10:00 Blood Pressure 147/76 08/29/16 10:00 O2 Sat by Pulse Oximetry (%) 98 08/28/16 21:00 Intake & Output 08/26/16 08/27/16 08/28/16 08/29/16 23:59 23:59 23:59 23:59 Intake Total 1050 1350 Balance 1050 1350 Weight 106 lb 105 lb 9.6 oz Gen: NAD CVS: RRR, No M/R Lungs :CTA Abd: soft + tenderness Ext: No edema, clubbing or cyanosis CBC, BMP 08/28/16 06:30 08/29/16 07:05 Laboratory Tests 08/28/16 08/28/16 08/29/16 14:24 14:24 07:05 Calcium 7.7 L Phosphorus 3.3 Magnesium 1.6 L D Albumin 3.0 L Total Amylase Lipase 679 H U Random Total Protein 104 H Urine Creatinine 36.8 08/29/16 07:05 Calcium Phosphorus Magnesium Albumin Total Amylase 225 H D Lipase U Random Total Protein Urine Creatinine Current Medications Albuterol Sulfate (Ventolin Hfa Inhaler -) 2 puff IH Q4H PRN PRN Reason: SHORT OF BREATH/WHEEZING Amlodipine Besylate (Norvasc -) 10 mg PO DAILY MELISSA Last Admin: 08/29/16 09:37 Dose: 10 mg Aspirin (Asa -) 81 mg PO DAILY MELISSA Last Admin: 08/29/16 09:37 Dose: 81 mg Lactated Ringer's (Lactated Ringers Solution) 1,000 mls @ 125 mls/hr IV ASDIR [facility] Last Admin: 08/29/16 02:30 Dose: 125 mls/hr Metoclopramide HCl (Reglan Injection -) 10 mg IVPB Q6H-IV MELISSA Last Admin: 08/29/16 09:37 Dose: 10 mg Morphine Sulfate (Morphine Injection -) 2 mg IVPUSH Q4H PRN PRN Reason: PAIN Last Admin: 08/29/16 06:32 Dose: 2 mg Non-Formulary Med Zepatier 50 Mg/100 Mg 1 each PO DAILY@0700 [facility] Last Admin: 08/29/16 06:34 Dose: 1 each Ondansetron HCl (Zofran Injection) 4 mg IVPB Q6H PRN PRN Reason: NAUSEA Last Admin: 08/29/16 06:38 Dose: 4 mg Quinapril HCl (Accupril -) 10 mg PO DAILY [facility] Last Admin: 08/29/16 09:37 Dose: 10 mg A/p 61 year old woman with PMhx of CKD Stage 4 with Baseline Cr ~2.2-2.4, Hepatitis C, Pancreatitis, Hypertension, DM > 20 years who presented to the ED with complaints of Epigastric Abd pain and N/V and found to have acute pancreatitis with BUN/Cr of 29/2.4. #CKD Stage 4 with sub-nephrotic proteinuria etiology of CKD likey diabetic nephropathy given long standing DM. Less likely GN (MPGN) given normal serologic studies Renal function stable continue to hold ACEi UPCR was 2.8 RF elevated, will repeat serologic studies once pancreatitis improves continue to trend BUN/Cr dose all meds for Cr cl less then 30 #Acute Pancreatitis continue pain control and IVF Imaging studies as per primary GI Evaluation #Hypertension Continue Amlodpine hold ACei for now #DM Check Hgb A1C insulin sliding scale as needed #Hepatitis C Continue tx as per GI Thank you Will follow
--- NOTE | 2016-08-29 11:46 | DS ---
Physical Exam: SUBJECTIVE: Patient seen and examined. She says her pain has improved and tolerable with pain medication, she is tolerating clears well. OBJECTIVE: Vital Signs Period Temp Pulse Resp BP Sys/Flores Pulse Ox Last 24 Hr 98.4 F-100 F 73-82 18-20 147-161/70-84 98 PE Neuro: alert, awake, cn 2-12intact Pulm: CTAB CV: s1 s2 rrr no mrg Abd: melina umbilical tenderness- improved, soft, low abd scar healed Ext: warm, no le edema Laboratory Results - last 24 hr 08/28/16 08/28/16 08/28/16 10:00 14:24 14:24 Sodium Potassium Chloride Carbon Dioxide Anion Gap BUN Creatinine Creat Clearance w eGFR Random Glucose Hemoglobin A1c % Calcium Phosphorus Magnesium Ferritin Total Bilirubin AST ALT Alkaline Phosphatase C-Reactive Protein Total Protein Albumin Total Amylase Lipase Urine Color Straw Urine Appearance Clear Urine pH 5.0 Ur Specific [place] 1.011 Urine Protein 2+ H Urine Glucose (UA) Negative Urine Ketones Negative Urine Blood Negative Urine Nitrite Negative Urine Bilirubin Negative Urine Urobilinogen Negative Ur Leukocyte Esterase Negative Urine RBC 6 Urine WBC 1 Ur Epithelial Cells Rare Urine Mucus Few U Random Total Protein 104 H Urine Creatinine 36.8 Rheumatoid Factor 08/29/16 08/29/16 08/29/16 07:05 07:05 07:05 Sodium 142 Potassium 4.5 Chloride 111 H Carbon Dioxide 24 Anion Gap 7 L BUN 25 H Creatinine 2.4 H Creat Clearance w eGFR 20.39 Random Glucose 123 H D Hemoglobin A1c % Calcium 7.7 L Phosphorus 3.3 Magnesium 1.6 L D Ferritin 94.176 Total Bilirubin 0.3 AST 17 D ALT 12 Alkaline Phosphatase 62 C-Reactive Protein Total Protein 6.1 L Albumin 3.0 L Total Amylase Lipase 679 H Urine Color Urine Appearance Urine pH Ur Specific [place] Urine Protein Urine Glucose (UA) Urine Ketones Urine Blood Urine Nitrite Urine Bilirubin Urine Urobilinogen Ur Leukocyte Esterase Urine RBC Urine WBC Ur Epithelial Cells Urine Mucus U Random Total Protein Urine Creatinine Rheumatoid Factor 21.2 H 08/29/16 08/29/16 07:05 07:05 Sodium Potassium Chloride Carbon Dioxide Anion Gap BUN Creatinine Creat Clearance w eGFR Random Glucose Hemoglobin A1c % 5.5 D Calcium Phosphorus Magnesium Ferritin Total Bilirubin AST ALT Alkaline Phosphatase C-Reactive Protein < 0.3 Total Protein Albumin Total Amylase 225 H D Lipase Urine Color Urine Appearance Urine pH Ur Specific [place] Urine Protein Urine Glucose (UA) Urine Ketones Urine Blood Urine Nitrite Urine Bilirubin Urine Urobilinogen Ur Leukocyte Esterase Urine RBC Urine WBC Ur Epithelial Cells Urine Mucus U Random Total Protein Urine Creatinine Rheumatoid Factor HOSPITAL COURSE: Date of Admission:08/28/16 Date of Discharge: 08/29/16 Minutes to complete discharge: 35 Discharge Summary Reason For Visit: PANCREATITIS Current Active Problems Abdominal pain (Acute) COPD exacerbation (Acute) DVT prophylaxis (Acute) Pancreatitis (Acute) Pneumonia (Acute) Hospital Course: Initial Hospital Course: Briefly, this 61 year old female with a PMHx of: Hepatitis C (on Zepatier), [place] ( unsuccessful stenting), HTN, DM, CKD, Anemia, Asthma, hx of chronic pancreatitis r/o pancreas divisum presented to the ED with epigastric pain and vomiting x 1 day. Patient reported having 4-5 non-hematemesis vomiting episodes , the pain was sharp and constant. Patient denies drinking alcohol or eating any foods that would exacerbate her condition. Imaging: - Abd US: mild-mod ectasia CBD, no calculi, sludge, increase right renal parenchyma Subsequent Hospital Course/Progress Note/Discharge Summary by p: Plan: Acute Pancreatitis - Improved - Lipase down trended - Tolerating full diet - Seen by GI, will follow in office Hx of Hep C - Continue Zepatier week 8 TARAS on CKD stage 4 - CKD likely diabetic nephropathy with normal serologic studies - Renal function stable - Restart HERBIE HTN - Resume home norvasc and accupril Anemia - Possibly of chronic dz - Levels pending, pt to follow up with renal doctor DM II - Resume home insulin regimen - Hgb a1c 5.5 Pancreas Divism - Previous unsuccessful minor sphincterotomy at [facility] - Last colonoscopy in 2010, hyperplastic rectal polyp removed, a right colon lipoma and diverticulosis noted - EGD on 09/18/11 revealed an antral ulcer and GERD Condition: Stable - Instructions Diet, Activity, Other Instructions: Please return to the ED for any new, persistent, or worsening symptoms. Follow up with your PCP in 1 weeks Follow up with Renal doctor Facundo in 1 -2 weeks for kidney function f/u Follow up with Dr. Orellana in 1 week for continued management Take home medications as directed and regularly Referrals: Janet Foy MD [Staff Physician] - STAFF,NOT ON [Primary Care Provider] - Naa Christensen MD [Staff Physician] - Disposition: HOME - Home Medications Comprehensive Discharge Medication List: Ambulatory Orders Insulin Glargine,Hum.rec.anlog [Lantus (10mL VIAL) -] 20 units SQ DAILY Albuterol Sulfate Inhaler - [Ventolin HFA Inhaler -] 2 inh PO Q4H PRN #1 inh Amlodipine Besylate [Norvasc -] 10 mg PO DAILY #30 tablet 11/22/15 Insulin Sliding Scale [Novolog Vial Sliding Scale -] 1 vial SQ ACHS units 11/21 Ascorbate Calcium [Vitamin C] 500 mg PO DAILY 08/27/16 Aspirin [ASA -] 81 mg PO DAILY 08/27/16 Cholecalciferol (Vitamin D3) [Vitamin D3] 2,000 unit PO DAILY 08/27/16 Quinapril HCl [Accupril -] 10 mg PO DAILY 08/27/16 Elbasvir/Grazoprevir [Zepatier 50-100 mg Tablet] 1 each PO 08/28/16 Oxycodone HCl/Acetaminophen [Percocet 5-325 mg Tablet] 1 tab PO Q6H #15 tablet MDD 4 08/29/16
--- NOTE | 2016-08-29 13:32 | PN ---
Physical Exam: SUBJECTIVE: Patient seen and examined. She still has some pain, however it has improved. She doesn't have much of an appetite. OBJECTIVE: Vital Signs Period Temp Pulse Resp BP Sys/Flores Pulse Ox Last 24 Hr 98.4 F-100 F 73-82 18-20 147-161/70-84 98 PE Neuro: alert, awake, cn 2-12intact Pulm: CTAB CV: s1 s2 rrr no mrg Abd: melina umbilical tenderness- improved, soft, low abd scar healed Ext: warm, no le edema Laboratory Results - last 24 hr 08/28/16 08/28/16 08/29/16 14:24 14:24 07:05 Sodium Potassium Chloride Carbon Dioxide Anion Gap BUN Creatinine Creat Clearance w eGFR Random Glucose Hemoglobin A1c % Calcium Phosphorus Magnesium Ferritin 94.176 Total Bilirubin AST ALT Alkaline Phosphatase C-Reactive Protein Total Protein Albumin Total Amylase Lipase U Random Total Protein 104 H Urine Creatinine 36.8 Rheumatoid Factor 08/29/16 08/29/16 08/29/16 07:05 07:05 07:05 Sodium 142 Potassium 4.5 Chloride 111 H Carbon Dioxide 24 Anion Gap 7 L BUN 25 H Creatinine 2.4 H Creat Clearance w eGFR 20.39 Random Glucose 123 H D Hemoglobin A1c % 5.5 D Calcium 7.7 L Phosphorus 3.3 Magnesium 1.6 L D Ferritin Total Bilirubin 0.3 AST 17 D ALT 12 Alkaline Phosphatase 62 C-Reactive Protein Total Protein 6.1 L Albumin 3.0 L Total Amylase Lipase 679 H U Random Total Protein Urine Creatinine Rheumatoid Factor 21.2 H 08/29/16 07:05 Sodium Potassium Chloride Carbon Dioxide Anion Gap BUN Creatinine Creat Clearance w eGFR Random Glucose Hemoglobin A1c % Calcium Phosphorus Magnesium Ferritin Total Bilirubin AST ALT Alkaline Phosphatase C-Reactive Protein < 0.3 Total Protein Albumin Total Amylase 225 H D Lipase U Random Total Protein Urine Creatinine Rheumatoid Factor Active Medications Generic Name Dose Route Start Last Admin Trade Name Freq PRN Reason Stop Dose Admin Albuterol Sulfate 2 puff 08/28/16 18:54 Ventolin Hfa Inhaler - IH Q4H PRN SHORT OF BREATH/WHEEZING Amlodipine Besylate 10 mg 08/28/16 19:00 08/29/16 09:37 Norvasc - PO 10 mg DAILY MELISSA Administration Aspirin 81 mg 08/29/16 10:00 08/29/16 09:37 Asa - PO 81 mg DAILY MELISSA Administration Lactated Ringer's 1,000 mls @ 125 mls/hr 08/28/16 07:15 08/29/16 02:30 Lactated Ringers Solution IV 125 mls/hr ASDIR MELISSA Administration Metoclopramide HCl 10 mg 08/28/16 21:00 08/29/16 09:37 Reglan Injection - IVPB 10 mg Q6H-IV MELISSA Administration Morphine Sulfate 2 mg 08/28/16 02:22 08/29/16 06:32 Morphine Injection - IVPUSH 2 mg Q4H PRN Administration PAIN Non-Formulary Med 1 each 08/28/16 08:45 08/29/16 06:34 Zepatier 50 Mg/100 PO 1 each Mg DAILY@0700 MELISSA Administration Ondansetron HCl 4 mg 08/28/16 01:18 08/29/16 06:38 Zofran Injection IVPB 4 mg Q6H PRN Administration NAUSEA Assessment: 61 year old female with pmhx Hepatitis C (on Zepatier), [place], HTN, DM II, CKD, Anemia, Asthma admitted with epigastric pain and vomiting x 1 day. Patient reports having 4-5 non-hematemesis vomiting episodes. Plan: 1. Acute Pancreatitis - Improving - Lipase down trended - Advance diet - Change LR @100cc/hr 2. TARAS on CKD stage 4 - CKD likely diabetic nephropathy with normal serologic studies - Renal function stable - Hold ethan for now - D/w renal 3. Hx of Hep C - Continue Zepatier week 8 4. HTN - Continue Norvasc 10mg daily 5. Anemia - Possibly of chronic dz - Levels pending 6. DM II - ISS, BGM ACHS - Hgb a1c 5.5 7. Pancreas Divism - Previous unsuccessful minor sphincterotomy at [facility] - Last colonoscopy in 2010, hyperplastic rectal polyp removed, a right colon lipoma and diverticulosis noted - EGD on 09/18/11 revealed an antral ulcer and GERD - Appreciate GI consult Visit type - Emergency Visit Emergency Visit: Yes ED Registration Date: 08/28/16 Care time: The patient presented to the Emergency Department on the above date and was hospitalized for further evaluation of their emergent condition. - New Patient This patient is new to me today: Yes Date on this admission: 08/29/16 - Critical Care Critical Care patient: No - Discharge Referral Referred to [facility] Med P.[facility] No
[2016-08-29] MEDS ORDERED: LACTATED RINGERS SOLUTION 1,000 ML IV SCH (13:39)
--- NOTE | 2016-08-29 16:22 | PN ---
GI Progress Note Subjective: GASTROENTEROLOGY STILL WITH PAIN ESPECIALLY AFTER FOOD TODAY OTHER THAN THAT SHE FEELS WELL THIS IS HER 3RD BOUT OF PANCREATITIS IN LAST 2 YEARS KNOWN PANCREATIC DIVISUM - Objective Vital Signs: Vital Signs Temperature 98.3 F 08/29/16 14:17 Pulse Rate 76 08/29/16 14:17 Respiratory Rate 18 08/29/16 10:00 Blood Pressure 153/73 08/29/16 14:17 O2 Sat by Pulse Oximetry (%) 98 08/28/16 21:00 Constitutional: No Distress Eyes: Yes: Conjunctiva Clear HENT: Yes: Normocephalic Neck: Yes: Supple Cardiovascular: Yes: Regular Rate and Rhythm Respiratory: Yes: Regular Gastrointestinal Inspection: Yes: WNL ...Auscultate: Yes: Normoactive Bowel Sounds ...Palpate: Yes: Soft, Tenderness, Epigastium Extremities: Yes: WNL Neurological: Yes: WNL Labs: CBC, BMP 08/28/16 06:30 08/29/16 07:05 INR, PTT INR 1.03 (0.82-1.09) 08/27/16 22:58 Laboratory Tests 08/28/16 08/29/16 06:30 07:05 WBC 4.7 RBC 3.33 L Hgb 9.2 L Hct 28.0 L MCV 84.2 MCHC 32.6 RDW 14.4 Plt Count 140 MPV 7.9 Neutrophils % 82.7 Lymphocytes % 10.8 D Monocytes % 5.6 Eosinophils % 0.5 Basophils % 0.4 Sodium 142 Potassium 4.5 Chloride 111 H Carbon Dioxide 24 Anion Gap 7 L BUN 25 H Creatinine 2.4 H Creat Clearance w eGFR 20.39 Random Glucose 123 H D Calcium 7.7 L Phosphorus 3.3 Magnesium 1.6 L D Total Bilirubin 0.3 AST 17 D ALT 12 Alkaline Phosphatase 62 Lipase 679 H - ....Imaging Cat Scan: Image Reviewed Problem List - Problems (1) Pancreatitis Assessment/Plan: HOLD BACK ADVNACE OF DIET, CHANGE BACK TO FULL LIQUID, CLEARS IF PAIN PERSISTS FOLLOW LFT'S AND LIPASE MOST LIKELY CULPRIT IS PANCREATIC DIVISUM Code(s): K85.9 - ACUTE PANCREATITIS, UNSPECIFIED * DO NOT USE * Qualifiers: Chronicity: acute Pancreatitis type: unspecified pancreatitis type Qualified Code(s): K85.9 - Acute pancreatitis, unspecified (2) Pancreatic divisum Assessment/Plan: OUTPATIENT EVALUATION BY ADVANCED ENDOSCOPIST Code(s): Q45.3 - OTH CONGENITAL MALFORMATIONS OF PANCREAS AND PANCREATIC DUCT (3) Chronic active hepatitis C Assessment/Plan: CONTINUE MEDS FROM HOME Code(s): K73.2 - CHRONIC ACTIVE HEPATITIS, NOT ELSEWHERE CLASSIFIED
[2016-08-29] MEDS ORDERED: HYDROmorphone HCL CARPU-JECT 1 MG/1 ML DISP.SYRIN IVPB ONE (22:56)
[2016-08-30] MEDS: morphine CARPU-JECT 2 MG/1 ML DISP.SYRIN IVPUSH PRN ×2 (02:40→10:16)
[2016-08-30] MEDS: METOCLOPRAMIDE HCL INJECTION 10 MG/2 ML VIAL IVPB SCH ×2 (02:40→08:07)
[2016-08-30] MEDS ORDERED: PT OWN MED DRAWER 7, Y5N ONE (06:06)
[2016-08-30] MEDS: ZEPATIER PO SCH (06:07)
[2016-08-30 06:36] LABS: SERUM IRON 25 ug/dL (27-139); TOTAL IRON BINDING CAPACITY 211 ug/dL (250-450); UIBC 186 ug/dL (118-369)
[2016-08-30 08:11] LABS: TRANSFERRIN 193 mg/dL (200-370)
[2016-08-30 08:59] LABS: BASOPHIL 0.5 % (0-2.0); EOSINOPHIL 0.8 % (0-4.5); MCH 27.7 pg (25.7-33.7); MEAN CELL VOLUME 84.2 fl (80-96); MEAN PLT VOLUME 7.8 fl (7.5-11.1); NEUTROPHILS 55.5 % (42.8-82.8); PLATELET COUNT 132 K/MM3 (134-434); RDW 13.6 % (11.6-15.6); WHITE BLOOD COUNT 3.8 K/mm3 (4.0-10.0)
[2016-08-30 09:00] LABS: CREATININE 2.4 mg/dL (0.55-1.02); MAGNESIUM 1.8 mg/dL (1.8-2.4)
[2016-08-30] MEDS: ASPIRIN 81 MG CHEWABLE TABLETS PO SCH (10:19)
[2016-08-30] MEDS: amLODIPine BESYLATE 10 MG TABLET (FP) PO SCH (10:19)
[2016-08-30 14:43] VITALS: BP 155/78; PULSE 64; TEMP 98
--- NOTE | 2016-08-30 14:46 | DS ---
Physical Exam: SUBJECTIVE: Patient seen and examined. She is feeling better today, she will not eat hospital food, but jumped out of bed when said she could go home. OBJECTIVE: Vital Signs Period Temp Pulse Resp BP Sys/Flores Pulse Ox Last 24 Hr 98.0 F-98.5 F 64-91 12-20 142-167/68-81 PE Neuro: alert, awake, cn 2-12intact Pulm: CTAB CV: s1 s2 rrr no mrg Abd: melina umbilical tenderness- improved, soft, low abd scar healed Ext: warm, no le edema Laboratory Results - last 24 hr 08/29/16 08/30/16 08/30/16 07:05 07:50 07:50 WBC 3.8 L RBC 3.36 L Hgb 9.3 L Hct 28.2 L MCV 84.2 MCHC 33.0 RDW 13.6 Plt Count 132 L MPV 7.8 Neutrophils % 55.5 D Lymphocytes % 35.9 D Monocytes % 7.3 Eosinophils % 0.8 Basophils % 0.5 Sodium 139 Potassium 5.0 Chloride 106 Carbon Dioxide 24 Anion Gap 9 BUN 27 H Creatinine 2.4 H Random Glucose 271 H D Calcium 8.0 L Phosphorus 3.0 Magnesium 1.8 Iron 25 L TIBC 211 L Iron Saturation 12 L Transferrin 193 L Lipase 08/30/16 07:50 WBC RBC Hgb Hct MCV MCHC RDW Plt Count MPV Neutrophils % Lymphocytes % Monocytes % Eosinophils % Basophils % Sodium Potassium Chloride Carbon Dioxide Anion Gap BUN Creatinine Random Glucose Calcium Phosphorus Magnesium Iron TIBC Iron Saturation Transferrin Lipase 620 H HOSPITAL COURSE: Date of Admission:08/28/16 Date of Discharge: 08/30/16 Minutes to complete discharge: 35 Discharge Summary Reason For Visit: PANCREATITIS Current Active Problems Abdominal pain (Acute) COPD exacerbation (Acute) Chronic active hepatitis C (Acute) DVT prophylaxis (Acute) Pancreatic divisum (Acute) Pancreatitis (Acute) Pneumonia (Acute) Hospital Course: Initial Hospital Course: Briefly, this 61 year old female with a PMHx of: Hepatitis C (on Zepatier), [place], HTN, DM, Chronic Renal Insufficiency, Anemia, Asthma admitted with epigastric pain and vomiting x 1 day. Patient reported having 4-5 non-hematemesis vomiting episodes, the pain was sharp and constant. Patient denies drinking alcohol or eating any foods that would exacerbate her condition. Subsequent Hospital Course/Progress Note/Discharge Summary by p: Plan: 1. Acute Pancreatitis - Improving - Lipase down trended - s/p aggressive LR - Tolerated full/soft diet - GI office follow up 2. TARAS on CKD stage 4 - CKD likely diabetic nephropathy with normal serologic studies - Renal function stable - Restart HERBIE - Renal office f/u 3. Hx of Hep C - Continue Zepatier week 8 4. HTN - Continue Norvasc 10mg daily 5. Anemia - Possibly of chronic dz - Iron studies noted - Pt already on Ferrous sulfate, instructed to increase to TID for low saturation and serum levels, she understands - Take with colace BID 6. DM II - Resume home insulin regimen 7. Pancreas Divism - Previous unsuccessful minor sphincterotomy at [facility] - Last colonoscopy in 2010, hyperplastic rectal polyp removed, a right colon lipoma and diverticulosis noted - EGD on 09/18/11 revealed an antral ulcer and GERD Dispo: - Home with above plan and medications - F/u with GI and renal next week - PT and aware and agree to above plan Condition: Stable - Instructions Diet, Activity, Other Instructions: Please return to the ED for any new, persistent, or worsening symptoms. Follow up with your PCP in 1 week Eat soft foods Follow up with Renal doctor Facundo in 1 -2 weeks for kidney function f/u Follow up with Dr. Orellana in 1 week for continued management Take home medications as directed and regularly Referrals: Janet Foy MD [Staff Physician] - Naa Christensen MD [Staff Physician] - STAFF,NOT ON [Primary Care Provider] - Javi Orellana MD [Staff Physician] - Disposition: HOME - Home Medications Comprehensive Discharge Medication List: Ambulatory Orders Insulin Glargine,Hum.rec.anlog [Lantus (10mL VIAL) -] 20 units SQ DAILY Albuterol Sulfate Inhaler - [Ventolin HFA Inhaler -] 2 inh PO Q4H PRN #1 inh Amlodipine Besylate [Norvasc -] 10 mg PO DAILY #30 tablet 11/22/15 Insulin Sliding Scale [Novolog Vial Sliding Scale -] 1 vial SQ ACHS units 11/21 Ascorbate Calcium [Vitamin C] 500 mg PO DAILY 08/27/16 Aspirin [ASA -] 81 mg PO DAILY 08/27/16 Cholecalciferol (Vitamin D3) [Vitamin D3] 2,000 unit PO DAILY 08/27/16 Quinapril HCl [Accupril -] 10 mg PO DAILY 08/27/16 Elbasvir/Grazoprevir [Zepatier 50-100 mg Tablet] 1 each PO 08/28/16 Oxycodone HCl/Acetaminophen [Percocet 5-325 mg Tablet] 1 tab PO Q6H #15 tablet MDD 4 08/29/16 This patient is new to me today: No Emergency Visit: Yes ED Registration Date: 08/28/16 Care time: The patient presented to the Emergency Department on the above date and was hospitalized for further evaluation of their emergent condition. Critical Care patient: No - Discharge Referral Referred to [facility] Med P.C.: No
== END 2016-08-30 15:39 | disposition home or self-care (01) | DRG 439 ==
LOC: JER 21:57 → JERBED 08-28 01:24 → UNDOADMIN 08-28 01:50 → JERBED 08-28 01:50 → J6S 08-28 03:22 → JERBED 08-28 03:22
PROVIDERS: ADMIT Internal Medicine; ATTEND Nurse Practitioner Acute Care
DX: K85.90 Acute pancreatitis without necrosis or infection, unspecified (principal); N18.4 Chronic kidney disease, stage 4 (severe); N17.9 Acute kidney failure, unspecified; Q45.3 Other congenital malformations of pancreas and pancreatic duct; E11.22 Type 2 diabetes mellitus with diabetic chronic kidney disease; I12.9 Hypertensive chronic kidney disease with stage 1 through stage 4 chronic kidney disease, or unspecified chronic kidney disease; Z79.4 Long term (current) use of insulin; D64.9 Anemia, unspecified; B19.20 Unspecified viral hepatitis C without hepatic coma; J45.909 Unspecified asthma, uncomplicated; I25.2 Old myocardial infarction; R11.2 Nausea with vomiting, unspecified; E11.21 Type 2 diabetes mellitus with diabetic nephropathy; I73.9 Peripheral vascular disease, unspecified
CPT/HCPCS: 36415; 71010-TC; 74176-TC; 76705-TC; 80048; 80053; 80061; 81003; 81015; 82150; 82550; 82570; 82728; 83036; 83540; 83550; 83690; 83721; 83735; 84100; 84156; 84466; 84484; 85025; 85610; 85730; 86140; 86431; 93005; 93010; 99283-25

== ENCOUNTER 2016-08-31 03:51 | Observation (INO) | payer BC ==
[2016-08-31] MEDS ORDERED: SODIUM CHLORIDE 1,000 ML IV STA (05:30)
[2016-08-31] MEDS ORDERED: morphine CARPU-JECT 4 MG/1 ML DISP.SYRIN IVPUSH ONE (05:30)
[2016-08-31] MEDS ORDERED: ONDANSETRON 4 MG/2 ML VIAL IVPUSH ONE (05:30)
[2016-08-31 05:43] LABS: BASOPHIL 0.3 % (0-2.0); EOSINOPHIL 0.8 % (0-4.5); MCH 27.7 pg (25.7-33.7); MCHC 33.7 g/dl (32.0-36.0); MEAN CELL VOLUME 82.3 fl (80-96); MEAN PLT VOLUME 7.9 fl (7.5-11.1); PLATELET COUNT 159 K/MM3 (134-434); RDW 13.7 % (11.6-15.6); WHITE BLOOD COUNT 5.4 K/mm3 (4.0-10.0)
[2016-08-31] MEDS ORDERED: ONDANSETRON 4 MG/2 ML VIAL ONE (05:50)
[2016-08-31] MEDS ORDERED: morphine CARPU-JECT 4 MG/1 ML DISP.SYRIN ONE (05:50)
--- NOTE | 2016-08-31 05:50 | PDOC ---
[id number] 4d STOMACH PAIN Time Seen by Provider: 08/31/16 04:02 History Source: Patient Exam Limitations: No Limitations - History of Present Illness Travel History: No Initial Comments: 08/31/16 05:57 61yo Female patient w/ PmHx: DM, Anemia, Chronic Pancreatitis, NM, HTN, Hep C, Asthma, and renal insuff presents to this ED c/o abd pain, nausea, vomiting and was recently discharge from this hospital earlier today. Patient states the doctor "upstairs" told her to return if she did not feel better. Patient states abd pain worsening w/ vomiting x 2 and chest tightness. Patient reports last meal 230am. She denies any other complaints at this time. Timing/Duration: reports: getting worse Quality: reports: moderate, sharpness Abdominal Pain Onset Location: reports: epigastric Pain Radiation: reports: no radiation Activities at Onset: reports: no specific activity Aggravating Factors: worse with: None, Defecation, Eating, Emotional upset, Exertion, [place], Movement, Voiding, Change in position Alleviating Factors: worse with: None, Belching, Shallow Breathing, Defecation, Eating, Holding Breath, Passing Gas, Change in Position, Rest, Voiding, Vomiting Past History - Travel Traveled outside of the country in the last 30 days: No Close contact w/someone who was outside of country & ill: No - Past Medical History Allergies/Adverse Reactions: Allergies Allergy/AdvReac Type Severity Reaction Status Date / Time ibuprofen [From Motrin] Allergy Verified 08/31/16 05:19 Home Medications: Ambulatory Orders Insulin Glargine,Hum.rec.anlog [Lantus (10mL VIAL) -] 20 units SQ DAILY Insulin Sliding Scale [Novolog Vial Sliding Scale -] 1 vial SQ ACHS units 11/21 Ascorbate Calcium [Vitamin C] 500 mg PO DAILY 08/27/16 Aspirin [ASA -] 81 mg PO DAILY 08/27/16 Cholecalciferol (Vitamin D3) [Vitamin D3] 2,000 unit PO DAILY 08/27/16 Quinapril HCl [Accupril -] 10 mg PO DAILY 08/27/16 Amlodipine Besylate [Norvasc -] 2.5 mg PO DAILY 08/31/16 Elbasvir/Grazoprevir [Zepatier 50-100 mg Tablet] 1 each PO ASDIR #0 08/31/16 Ferrous Sulfate [Feosol] 0 mg PO ASDIR 08/31/16 Fluticasone Propionate [Flovent Diskus] 2 puff IH PRN PRN 08/31/16 Lipase/Protease/Amylase [Maximo [place] 6,000 Units Capsule] 1 cap PO TIDCM #90 capsule. 09/02/16 Pantoprazole Sodium [Protonix -] 40 mg PO DAILY #30 tablet.ec 09/02/16 Anemia: No Asthma: Yes Cancer: No Cardiac Disorders: Yes (NM SEPTEMBER 2011) CVA: No COPD: No CHF: No Dementia: No Diabetes: Yes GI Disorders: Yes (PANCREATITIS) Disorders: No HTN: Yes Hypercholesterolemia: No Liver Disease: Yes (hep c) Suicide Attempt (Hx): No Seizures: No Thyroid Disease: No Other medical history: ectopic x2 - Surgical History Abdominal Surgery: No Appendectomy: No Cardiac Surgery: No Cholecystectomy: No Lung Surgery: No Neurologic Surgery: No Orthopedic Surgery: No - Immunization History Td Vaccination: No TDAP Vaccination: No Immunization Up to Date: Yes - Psycho/Social/Smoking Cessation Hx Anxiety: No Suicidal Ideation: No Smoking Status: No Smoking History: Unknown if ever smoked Have you smoked in the past 12 months: No Number of Cigarettes Smoked Daily: 0 If you are a former smoker, when did you quit?: 2005 'Breaking Loose' booklet given: 04/05/16 Hx Alcohol Use: No Drug/Substance Use Hx: No Substance Use Type: None Hx Substance Use Treatment: No Abd/GI Specific PMHX - Complaint Specific PMHX Colitis: No Diverticulitis: No Gall Bladder Disease: No GERD: No Hepatitis: Yes Irritable Bowel Synd (IBS): No Pancreatitis: Yes GI Ulcer Disease: No Review of Systems - Review of Systems Able to Perform ROS?: Yes Is the patient limited [place]er proficient: No Constitutional: No: Chills, Fever, Weakness Respiratory: No: Cough, Orthopnea, Shortness of Breath, Stridor, Wheezing, Productive cough Cardiac (ROS): No: Chest Pain, Lightheadedness, Palpitations, Syncope, Chest Tightness ABD/GI: Yes: Nausea, Vomiting, Other (Abdominal Pain). No: Constipated, Diarrhea, Poor Appetite, Poor Fluid Intake, Rectal Bleeding : No: Burning, Dysuria, Hematuria Musculoskeletal: No: Back Pain Integumentary: No: Bruising, Erythema, Rash All Other Systems: Reviewed and Negative *Physical Exam - Vital Signs Last Vital Signs Temp Pulse Resp BP Pulse Ox 98.0 F 83 18 174/96 100 08/31/16 04:14 08/31/16 04:14 08/31/16 04:14 08/31/16 04:14 08/31/16 04:14 - Physical Exam General Appearance: Yes: Nourished, Appropriately Dressed. No: Apparent Distress, Mild Distress, Moderate Distress, Severe Distress Respiratory/Chest: positive: Lungs Clear, Normal Breath Sounds. negative: Respiratory Distress, Accessory Muscle Use, Labored Respiration, Rapid RR Cardiovascular: positive: Regular Rhythm, Regular Rate Gastrointestinal/Abdominal: positive: Normal Bowel Sounds, Soft, Guarding, Rebound, Tenderness (Epigastric abdominal pain) Musculoskeletal: positive: Normal Inspection. negative: CVA Tenderness Extremity: positive: Normal Capillary Refill, Normal Inspection, Normal Range of Motion Integumentary: positive: Normal Color, Dry, Warm. negative: Erythema, Rash Neurologic: positive: residential youth counselor II-XII NML intact, Fully Oriented, Alert, Normal Mood/ Affect, Normal Response, Motor Strength 5/5 ED Treatment Course - LABORATORY CBC & Chemistry Diagram: 09/02/16 06:10 09/02/16 19:39 *DC/Admit/Observation/Transfer Diagnosis at time of Disposition: Persistent vomiting Abdominal pain Qualifiers: Abdominal location: unspecified location Qualified Code(s): R10.9 - Unspecified abdominal pain Pancreatitis, chronic Qualifiers: Pancreatitis type: other Qualified Code(s): K86.1 - Other chronic pancreatitis - Discharge Dispostion Disposition: HOME Condition at time of disposition: Stable Admit: No - Prescriptions
[2016-08-31] MEDS ORDERED: PANTOPRAZOLE 40 MG TABLET (FP) ONE (05:51)
[2016-08-31 06:27] LABS: ALBUMIN 3.3 g/dl (3.4-5.0); BILIRUBIN,TOTAL 0.5 mg/dL (0.2-1.0); CALCIUM 7.9 mg/dL (8.5-10.1); CREATININE 2.5 mg/dL (0.55-1.02); TOT PROT 6.6 g/dl (6.4-8.2)
[2016-08-31 06:44] LABS: URINE APPEARANCE CLEAR; URINE BILIRUBIN NEGATIVE (NEGATIVE); URINE COLOR STRAW; URINE GLUCOSE (UA) 1+ (NEGATIVE); URINE KETONE NEGATIVE (NEGATIVE); URINE LEUK ESTERASE NEGATIVE (NEGATIVE); URINE NITRITE NEGATIVE (NEGATIVE); URINE UROBILINOGEN NEGATIVE E.U./dl (0.2-1.0)
[2016-08-31 07:05] LABS: TROPONIN I 0.03 ng/ml (0.00-0.05)
--- NOTE | 2016-08-31 07:19 | PDOC ---
ED Treatment Course - LABORATORY CBC & Chemistry Diagram: 08/31/16 05:40 08/31/16 05:40 - ADDITIONAL ORDERS Additional order review: Laboratory Results 08/31/16 05:40 Sodium 136 Potassium 4.0 Chloride 101 Carbon Dioxide 26 Anion Gap 9 BUN 24 H Creatinine 2.5 H Creat Clearance w eGFR 19.45 Random Glucose 201 H D Calcium 7.9 L Total Bilirubin 0.5 D AST 26 D ALT 17 D Alkaline Phosphatase 66 Total Protein 6.6 Albumin 3.3 L Total Amylase 108 D Lipase 434 H 08/31/16 05:40 RBC 3.39 L MCV 82.3 MCHC 33.7 RDW 13.7 MPV 7.9 Neutrophils % 71.0 D Lymphocytes % 21.8 D Monocytes % 6.1 Eosinophils % 0.8 Basophils % 0.3 - Medications Given in the ED: ED Medications Discontinued Medications Generic Name Dose Route Start Last Admin Trade Name Freq PRN Reason Stop Dose Admin Sodium Chloride 1,000 mls @ 1,000 mls/hr 08/31/16 05:30 08/31/16 06:51 Normal Saline - IV 08/31/16 06:29 1,000 mls/hr ASDIR STA Administration Morphine Sulfate 4 mg 08/31/16 05:30 08/31/16 04:50 Morphine Injection - IVPUSH 08/31/16 05:31 4 mg ONCE ONE Administration Ondansetron HCl 4 mg 08/31/16 05:30 08/31/16 05:50 Zofran Injection IVPUSH 08/31/16 05:31 4 mg ONCE ONE Administration Progress Note - Progress Note Progress Note: I have received report from FARIBA Aranda regarding this patient. Pt's initial chief complaint: abdominal pain Pt's work up completed prior to sign out: labs, UA, EKG Pt treatment given from prior staff: Morphine, zofran, Protonix Pt plan to be completed: Admission Dispo: Admission ` Medical Decision Making - Medical Decision Making A/P: 61 y/o afebrile female with PMH DM, anemia, chronic pancreatitis, [place], HTN , Hep C, asthma and renal insufficiency c/o abd pain, nausea and vomiting. The patient was recently discharged from this hospital earlier today. Pt states she was told to return if she did did not feel better. Pt was initially assessed by FARIBA Aranda. Will admit to hospitalist. Spoke with Dr. Lobo and he accepts admission to observation for pain control. *DC/Admit/Observation/Transfer Diagnosis at time of Disposition: Persistent vomiting Abdominal pain Qualifiers: Abdominal location: unspecified location Qualified Code(s): R10.9 - Unspecified abdominal pain Pancreatitis, chronic Qualifiers: Pancreatitis type: other Qualified Code(s): K86.1 - Other chronic pancreatitis - Discharge Dispostion Condition at time of disposition: Stable Admit: Yes - Referrals Referrals: Janet Foy MD [Primary Care Provider] -
[2016-08-31 08:21] LABS: URINE BLOOD 2+ (NEGATIVE); URINE PROTEIN 2+ (NEGATIVE)
[2016-08-31] MEDS ORDERED: oxyCODONE HCL 5 MG TABLET PO PRN (09:05)
--- NOTE | 2016-08-31 09:18 | HP ---
Admitting History and Physical - Admission Chief Complaint: abdominal pain History of Present Illness: This is a 61 year old female with. She was discharged yesterday after completing treatment for acute on chronic pancreatitis. She reports going home having a teaspoon of a fruit cup and tea. At 330am she began having abdominal pain referring to her chest causing her to leave her and return to the the hospital. She vomited twice, no blood, just phlegm. She currently denies CP , nausea, fever, chills, she does have epigastric tenderness, she is able to have full conversations without issue. ED Course: 1. x1L NS 2. Morphine 4mg x1 3. Zofran 4. Lipase 434 History Source: Patient - Past Medical History Cardiovascular: Yes: HTN, [place] (on 1999 with unsuccessful stenting), Other ( peripheral vascular disease) Pulmonary: Yes: COPD Gastrointestinal: Yes: Diverticulosis, GERD, Pancreatitis (pancreas divisum), Other (hyperplastic rectal polyp 2010, antral ulcer 2011) Hepatobiliary: Yes: Hepatitis C (being treated with Zepatier week 8) Renal/: Yes: Renal Inusuff Infectious Disease: Yes: Other (hep c) Endocrine: Yes: Diabetes Mellitus (retinopathy, neuropathy and nephropathy ) - Past Surgical History Past Surgical History: Yes: , Hysterectomy (leaving left ovary inact), Tonsillectomy - Smoking History Smoking history: Unknown if ever smoked Have you smoked in the past 12 months: No Aproximately how many cigarettes per day: 0 If you are a former smoker, when did you quit?: 2006 - Alcohol/Substance Use Hx Alcohol Use: No - Social History Usual Living Arrangement: Yes: With Spouse ADL: Independent 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 [employer] History of Recent Travel: Yes Home Medications - Allergies Allergies/Adverse Reactions: Allergies Allergy/AdvReac Type Severity Reaction Status Date / Time ibuprofen [From Motrin] Allergy Verified 08/31/16 05:19 - Home Medications Home Medications: Ambulatory Orders Insulin Glargine,Hum.rec.anlog [Lantus (10mL VIAL) -] 20 units SQ DAILY Insulin Sliding Scale [Novolog Vial Sliding Scale -] 1 vial SQ ACHS units 11/21 Ascorbate Calcium [Vitamin C] 500 mg PO DAILY 08/27/16 Aspirin [ASA -] 81 mg PO DAILY 08/27/16 Cholecalciferol (Vitamin D3) [Vitamin D3] 2,000 unit PO DAILY 08/27/16 Quinapril HCl [Accupril -] 10 mg PO DAILY 08/27/16 Amlodipine Besylate [Norvasc -] 2.5 mg PO DAILY 08/31/16 Elbasvir/Grazoprevir [Zepatier 50-100 mg Tablet] 1 each PO ASDIR #0 08/31/16 Ferrous Sulfate [Feosol] 0 mg PO ASDIR 08/31/16 Fluticasone Propionate [Flovent Diskus] 2 puff IH PRN PRN 08/31/16 Family Disease History - Family Disease History Family Disease History: Diabetes: Sister (CVA), CA: Mother (Hodgkins Disease), Other: Sister Review of Systems - Review of Systems Constitutional: reports: Loss of Appetite Eyes: reports: No Symptoms HENT: reports: No Symptoms Neck: reports: No Symptoms Cardiovascular: reports: No Symptoms Respiratory: reports: No Symptoms Gastrointestinal: reports: Abdominal Pain, Vomiting Genitourinary: reports: No Symptoms Musculoskeletal: reports: No Symptoms Integumentary: reports: No Symptoms Neurological: reports: No Symptoms Endocrine: reports: No Symptoms Hematology/Lymphatic: reports: No Symptoms Psychiatric: reports: No Symptoms Physical Examination Vital Signs: Vital Signs Temperature 98.0 F 08/31/16 04:14 Pulse Rate 83 08/31/16 07:51 Respiratory Rate 18 08/31/16 07:51 Blood Pressure 176/83 08/31/16 07:51 O2 Sat by Pulse Oximetry (%) 98 08/31/16 07:51 Constitutional: Yes: Calm HENT: Yes: Atraumatic Neck: Yes: Trachea Midline Cardiovascular: Yes: Regular Rate and Rhythm, S1, S2 Respiratory: Yes: Regular, CTA Bilaterally Gastrointestinal: Yes: Tenderness, Epigastrium Renal/: Yes: WNL Breast(s): Yes: WNL Extremities: Yes: WNL Edema: No Peripheral Pulses WNL: Yes Neurological: Yes: Alert, Oriented, Cran Nerves II-XII Intact ...Motor Strength: WNL Problem List - Problems (1) Abdominal pain Code(s): R10.9 - UNSPECIFIED ABDOMINAL PAIN Qualifiers: Abdominal location: unspecified location Qualified Code(s): R10.9 - Unspecified abdominal pain (2) Pancreatitis, chronic Code(s): K86.1 - OTHER CHRONIC PANCREATITIS Qualifiers: Pancreatitis type: other Qualified Code(s): K86.1 - Other chronic pancreatitis (3) Chronic active hepatitis C Code(s): K73.2 - CHRONIC ACTIVE HEPATITIS, NOT ELSEWHERE CLASSIFIED (4) Diabetes Code(s): E11.9 - TYPE 2 DIABETES MELLITUS WITHOUT COMPLICATIONS (5) Hepatitis C Code(s): B19.20 - UNSPECIFIED VIRAL HEPATITIS C WITHOUT HEPATIC COMA (6) Hypertension Code(s): I10 - ESSENTIAL (PRIMARY) HYPERTENSION (7) Pancreatic divisum Code(s): Q45.3 - [facility] CONGENITAL MALFORMATIONS OF PANCREAS AND PANCREATIC DUCT Assessment/Plan Assessment: 61 year old female admitted with intractable abdominal pain Plan: 1. Abdominal pain - Likely from residual pancreatitis episode - Start D5 1/2 NS @100cc/hr - Morphine 2mg q4hr prn - Oxycodone 5mg q4 prn 2. Acute on chronic pancreatitis - Lipase down trended from yesterday - GI consulted 3. HTN - Continue Norvasc 10mg daily 4. TARAS on CKD stage 4 - CKD likely diabetic nephropathy with normal serologic studies - Hold HERBIE until tolerating PO - Trend Cr, currently around baseline 5. Hx of Hep C - Continue Zepatier week 8 6. Anemia - Possibly of chronic dz - Ferrous sulfate TID once tolerating PO 7. DM II - ISS, BGM ACHS 8. Pancreas Divism - Previous unsuccessful minor sphincterotomy at [facility] - Last colonoscopy in 2010, hyperplastic rectal polyp removed, a right colon lipoma and diverticulosis noted - EGD on 09/18/11 revealed an antral ulcer and GERD Visit type - Emergency Visit Emergency Visit: Yes ED Registration Date: 08/31/16 Care time: The patient presented to the Emergency Department on the above date and was hospitalized for further evaluation of their emergent condition. - New Patient This patient is new to me today: Yes Date on this admission: 08/31/16 - Critical Care Critical Care patient: No
[2016-08-31] MEDS: DEXTROSE 5%-0.45% SALINE 1,000 ML IV SCH (09:52)
[2016-08-31] MEDS ORDERED: amLODIPine BESYLATE 5 MG TABLET (FP) ONE (09:53)
[2016-08-31] MEDS: amLODIPine BESYLATE 10 MG TABLET (FP) PO SCH (09:55)
[2016-08-31] MEDS ORDERED: ENOXAPARIN NA (PORCINE) 40 MG/0.4 ML DISP.SYRIN SQ SCH (10:00)
[2016-08-31] MEDS: morphine CARPU-JECT 2 MG/1 ML DISP.SYRIN IVPUSH PRN ×2 (11:51→20:23)
[2016-08-31] MEDS: ONDANSETRON 4 MG/2 ML VIAL IVPB PRN ×2 (11:53→20:26)
--- NOTE | 2016-08-31 11:54 | EKG ---
Test Reason : Blood Pressure : / mmHG Vent. Rate : 083 BPM Atrial Rate : 083 BPM P-R Int : 126 ms QRS Dur : 088 ms QT Int : 390 ms P-R-T Axes : 078 045 058 degrees QTc Int : 458 ms NORMAL SINUS RHYTHM POSSIBLE LEFT ATRIAL ENLARGEMENT SEPTAL INFARCT , AGE UNDETERMINED ABNORMAL ECG WHEN COMPARED WITH ECG OF 27-AUG-2016 23:05, NONSPECIFIC T WAVE ABNORMALITY NO LONGER EVIDENT IN LATERAL LEADS Confirmed by JUNI DE OLIVEIRA MD ([id number]) on 08/31/2016 11:54:17 AM Referred By: Confirmed By:JUNI DE OLIVEIRA MD
[2016-08-31] MEDS: INSULIN SLIDING SCALE (NOVOLOG) 1 VIAL SQ SCH ×3 (13:57→22:08)
[2016-08-31] MEDS: PANTOPRAZOLE 40 MG TABLET (FP) PO SCH (18:15)
[2016-08-31] MEDS: LIPASE/PROTEASE/AMYLASE 6,000 UNIT CAPSULE PO SCH (18:15)
--- NOTE | 2016-08-31 19:52 | CONS ---
DATE OF CONSULTATION: 08/31/2016 REQUESTING PHYSICIAN: [facility]. The patient is a 61-year-old woman, diabetic, being treated for HCV with Sanna by my associated, Dr. Javi Orellana. She is finishing the mid to end of this month. She also has a history of chronic pancreatitis, which is felt to be related to pancreas divisum. She developed severe epigastric pain and vomiting August 27 and it was reminiscent to her previous bouts of pancreatitis. She recalls attempts were made by Dr. Donis at [facility] in the past to do a minor sphincterotomy but this was unsuccessful. She states that she stopped using alcohol many years ago, had a single cocktail on [place] but none since. Her last colonoscopy was in [address] Collado, leading to removal of a hyperplastic rectal polyp and a right colon lipoma was noted as well as diverticulosis. Upper endoscopy in September of 2011 revealed an antral ulcer and GERD. She was admitted on the . She had a CAT scan August 28, revealing a limited exam since no oral or IV contrast was administered, with a very limited evaluation of the pancreas. She was evaluated by my colleague, Dr. Payal Hirsch, at that time, who felt that she was having a flare of recurring pancreatitis related to pancreas divisum and he wanted to start her on clear liquids. Pain subsided somewhat over the weekend, however, worsened when she was discharged just yesterday. She came back to the emergency room yesterday evening. There was associated nausea as well with vomiting. Laboratory evaluation in the emergency room yesterday evening revealed a white blood count of 5.4, with a hemoglobin of 9.4, hematocrit 27.9, MCV of 82.3. She does appear to have a chronic anemia. Her liver chemistries were normal on admission and her lipase was 434, which was trending down from her recent admission last week. Her glucose was noted to be 271 on the morning of the . It was 201 early this morning when she was admitted. Past medical history includes hypertension, [place] in 1999, with unsuccessful stenting, she has a history of peripheral vascular disease, and of note, she had an unrevealing MRA of the abdomen in 2011 that failed to reveal significant vascular stenosis. She has a history of COPD, diverticulosis, GERD, pancreatitis, which was felt to be secondary to pancreas divisum. She had a hyperplastic rectal polyp in 2011, an antral ulcer in 2012. She has a history of hepatitis C. She is currently being treated with Zepatier. Renal insufficiency, ectopic x2, diabetes mellitus with history of retinopathy neuropathy and nephropathy. Past surgical history includes section, hysterectomy with the left ovary being left intact, tonsillectomy, bunionectomy. SOCIAL HISTORY: She is a former alcohol user. Former smoker, she quit in 2005. She lives with her spouse. 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 She was born in the [facility]. No recent travel. ALLERGIES: IBUPROFEN. Home medications include glargine insulin, amlodipine, sliding scale insulin, vitamin C, aspirin 81 mg once daily, quinapril, Zepatier, Accupril. REVIEW OF SYSTEMS: She currently denies any chest pain or shortness of breath, fevers, chills, cough, sputum production. She does describe mid abdominal pain. No rectal bleeding. No melena, no diarrhea reported. She states that she has not had a bowel movement in a couple of days, however, otherwise she moves her bowels regularly. RADIOLOGY REPORTS: Recent CT scan of the abdomen and pelvis as noted in the history of present illness. PHYSICAL EXAMINATION: General: Patient was found lying in her bed. She appeared to be in no apparent distress. Vital Signs: She was afebrile, pulse of 87, blood pressure 154/79. Sclerae: Anicteric. Neck: Supple. Heart: Regular rate and rhythm. No murmurs are appreciated. Lungs: Clear to auscultation bilaterally. Abdomen: She had a pelvic surgical scar. The abdomen was otherwise nondistended. She had normoactive bowel sounds. No hepatosplenomegaly is appreciated. No masses are palpated. No hernias detected. She had mild tenderness to palpation in the mid abdomen. There is no guarding or rebound. Extremities: No lower extremity edema. Digital Rectal Exam: No external lesions, no masses. She had light brown stool in the rectal vault, which is guaiac negative. LABORATORY EVALUATION: As noted in the history of present illness. Also sodium 136, potassium 4.0, chloride 101, bicarbonate of 26, BUN 24, creatinine 2.5, glucose 201, AST of 26, ALT of 17, alkaline phosphatase 66, total bilirubin 0.5 with an albumin of 3.3, total protein 6.6, amylase of 108, lipase of 434. IMPRESSION: A 61-year-old female with persistent upper abdominal pain and nausea leading to a readmission the same day of her recent discharge. Question if there is a flare of chronic recurrent pancreatitis related to her pancreas divisum. Other considerations would be diabetic gastroparesis, she does have a history of peptic ulcer disease in the past, and side effects of her medications are possible, however, she is coming towards the end of her hepatitis C therapy. Would continue Zepatier for now. Her is bringing her medications, to be taken as directed. I have ordered an upper GI series to evaluate her upper GI anatomy more closely. Continue PPI for now. I have added Protonix 40 mg once daily to her regimen and will attempt to add pancreatic enzyme supplementation to her meals as well along with a trial of clear liquids. Other recommendation pending the patient's clinical course. I thank you for this consultative opportunity. YOSELIN CHAMBERLAIN DO [id number]
[2016-08-31] MEDS: HEPARIN NA (PORCINE) 5,000 UNITS/ML 1ML VIAL SQ SCH (22:13)
[2016-09-01] MEDS: DEXTROSE 5%-0.45% SALINE 1,000 ML IV SCH ×2 (03:55→11:10)
[2016-09-01] MEDS ORDERED: INSULIN (NOVOLOG) ASPART 100 UNITS/ML 10ML VIAL SQ ONE ×2 (06:10→11:15)
[2016-09-01] MEDS: INSULIN SLIDING SCALE (NOVOLOG) 1 VIAL SQ SCH ×4 (06:14→21:41)
[2016-09-01] MEDS: HEPARIN NA (PORCINE) 5,000 UNITS/ML 1ML VIAL SQ SCH ×3 (06:26→21:40)
[2016-09-01] MEDS: ZEPATIER PO SCH (06:45)
[2016-09-01 07:47] LABS: BASOPHIL 0.4 % (0-2.0); EOSINOPHIL 1.4 % (0-4.5); MCH 27.7 pg (25.7-33.7); MEAN CELL VOLUME 83.8 fl (80-96); MEAN PLT VOLUME 7.7 fl (7.5-11.1); NEUTROPHILS 76.2 % (42.8-82.8); PLATELET COUNT 126 K/MM3 (134-434); RDW 13.6 % (11.6-15.6); WHITE BLOOD COUNT 4.6 K/mm3 (4.0-10.0)
[2016-09-01 08:49] LABS: ALBUMIN 2.9 g/dl (3.4-5.0); CALCIUM 7.7 mg/dL (8.5-10.1); MAGNESIUM 1.6 mg/dL (1.8-2.4)
[2016-09-01 08:55] LABS: BILIRUBIN,TOTAL 0.6 mg/dL (0.2-1.0); CREATININE 2.6 mg/dL (0.55-1.02); PHOSPHOROUS 2.7 mg/dL (2.5-4.9); TOT PROT 6.1 g/dl (6.4-8.2)
[2016-09-01] MEDS ORDERED: PT OWN MED DRAWER 7, Y5N ONE (10:35)
[2016-09-01] MEDS: PANTOPRAZOLE 40 MG TABLET (FP) PO SCH (11:10)
[2016-09-01] MEDS: LIPASE/PROTEASE/AMYLASE 6,000 UNIT CAPSULE PO SCH ×3 (11:10→18:47)
[2016-09-01] MEDS: amLODIPine BESYLATE 10 MG TABLET (FP) PO SCH (11:10)
--- NOTE | 2016-09-01 13:29 | PN ---
GI Progress Note Subjective: No acute events. Upset due to a conversation re: diet today with hospitalist Reymundo Had UGIS today. ? stricture vs. spasm seen @ [facility]. She describes some dysphagia symptoms to solids at times prior to admission Currently no abdominal pain - Objective Vital Signs: Vital Signs Temperature 98.3 F 09/01/16 10:30 Pulse Rate 85 09/01/16 10:30 Respiratory Rate 18 09/01/16 10:30 Blood Pressure 146/82 09/01/16 10:30 O2 Sat by Pulse Oximetry (%) 98 09/01/16 10:30 Constitutional: No Distress Eyes: No: Sclera Icterus Cardiovascular: Yes: Regular Rate and Rhythm Respiratory: Yes: CTA Bilaterally Gastrointestinal Inspection: No: Distention Neurological: Yes: Alert, Oriented Labs: CBC, BMP 09/01/16 06:00 09/01/16 06:00 Problem List - Problems (1) Abnormal UGI series Assessment/Plan: Discussed EGD for further intraluminal evaluation / dilation if necessary. Discussed potential risks of the procedure like but not limited to bleeding, perforation, infection,sedation medication effects all of which could be potentially life threatening. She has agreed to the procedure NPO after midnight except meds with small sips water Advanced to full liquids Code(s): R93.3 - ABNORMAL FINDINGS ON DX IMAGING OF PRT DIGESTIVE TRACT
[2016-09-01] MEDS ORDERED: ACETAMINOPHEN 325 MG TABLET (FP) PO PRN (15:41)
[2016-09-01] MEDS: morphine CARPU-JECT 2 MG/1 ML DISP.SYRIN IVPUSH PRN (16:37)
--- NOTE | 2016-09-01 17:36 | PN ---
Physical Exam: SUBJECTIVE: Patient seen and examined. She has abdominal pain, no further vomiting, does not want to eat, she has trouble with food and often doesn't like it OBJECTIVE: Vital Signs Period Temp Pulse Resp BP Sys/Flores Pulse Ox Last 24 Hr 97.8 F-98.7 F 82-94 18-20 126-152/67-85 97-98 PE Neuro: alert, awake, cn 2-12intact Pulm: CTAB CV: s1 s2 rrr no mrg Abd: melina umbilical tenderness, abd soft Ext: warm, no le edema Laboratory Results - last 24 hr 08/31/16 08/31/16 09/01/16 17:07 22:07 06:00 WBC 4.6 RBC 3.29 L Hgb 9.1 L Hct 27.5 L MCV 83.8 MCHC 33.0 RDW 13.6 Plt Count 126 L D MPV 7.7 Neutrophils % 76.2 Lymphocytes % 18.9 Monocytes % 3.1 L Eosinophils % 1.4 Basophils % 0.4 Sodium Potassium Chloride Carbon Dioxide Anion Gap BUN Creatinine Creat Clearance w eGFR POC Glucometer 353 110 Random Glucose Calcium Phosphorus Magnesium Total Bilirubin AST ALT Alkaline Phosphatase Total Protein Albumin Lipase 09/01/16 09/01/16 09/01/16 06:00 08:12 17:11 WBC RBC Hgb Hct MCV MCHC RDW Plt Count MPV Neutrophils % Lymphocytes % Monocytes % Eosinophils % Basophils % Sodium 137 Potassium 4.6 Chloride 104 Carbon Dioxide 24 Anion Gap 9 BUN 19 H D Creatinine 2.6 H Creat Clearance w eGFR 18.59 POC Glucometer 417 302 Random Glucose 411 H* D Calcium 7.7 L Phosphorus 2.7 Magnesium 1.6 L Total Bilirubin 0.6 AST 17 D ALT 17 Alkaline Phosphatase 57 Total Protein 6.1 L Albumin 2.9 L Lipase 380 Active Medications Generic Name Dose Route Start Last Admin Trade Name Freq PRN Reason Stop Dose Admin Acetaminophen 650 mg 09/01/16 15:41 Tylenol - PO Q4H PRN FEVER OR PAIN Amlodipine Besylate 10 mg 08/31/16 10:00 09/01/16 11:10 Norvasc - PO 10 mg DAILY MELISSA Administration Heparin Sodium (Porcine) 5,000 unit 08/31/16 22:00 09/01/16 16:38 Heparin - SQ 5,000 unit TID MELISSA Administration Sodium Chloride 1,000 mls @ 125 mls/hr 09/02/16 00:01 Normal Saline - IV ASDIR [facility] Insulin Aspart 1 vial 08/31/16 11:00 09/01/16 12:19 Novolog Vial Sliding Scale - SQ Not Given ACHS [facility] Protocol Morphine Sulfate 1 mg 09/01/16 15:41 09/01/16 16:37 Morphine Injection - IVPUSH 1 mg Q6H PRN Administration PAIN Zepatier Patient's 1 each 09/01/16 07:00 09/01/16 06:45 Own Medication (Non- PO 1 each Formulary) DAILY@0700 MELISSA Administration Ondansetron HCl 4 mg 08/31/16 09:06 08/31/16 20:26 Zofran Injection IVPB 4 mg Q6H PRN Administration NAUSEA Oxycodone HCl 5 mg 08/31/16 09:05 Roxicodone - PO Q4H PRN PAIN Pancrelipase 1 cap 08/31/16 17:30 09/01/16 14:59 Crefifi [place] 6,000 Units Capsule PO 1 cap TIDCM MELISSA Administration Assessment: 61 year old female admitted with intractable abdominal pain. Plan: 1. Abdominal pain - UGIS shows stricture vs spasm - EGD tomorrow - Start NS 833/hr - Full liquids until midnight - D/w above with GI - Morphine 1mg q4hr prn 2. Acute on chronic pancreatitis - Lipase down trending/resolving - Start Pancrelipase TID 3. HTN - Norvasc 10mg daily 4. TARAS on CKD stage 4 - CKD likely diabetic nephropathy with normal serologic studies - Hold HERBIE until tolerating PO - Trend Cr, currently around baseline 5. Hx of Hep C - Continue Zepatier week 8 6. Anemia - Possibly of chronic dz - Ferrous sulfate TID 7. DM II - ISS, BGM ACHS 8. Pancreas Divism - Previous unsuccessful minor sphincterotomy at [facility] - Last colonoscopy in 2010, hyperplastic rectal polyp removed, a right colon lipoma and diverticulosis noted - EGD on 09/18/11 revealed an antral ulcer and GERD 9. Hypomagnesemia - Give 1gm mg IV x1 Problem List - Problems (1) Abdominal pain Code(s): R10.9 - UNSPECIFIED ABDOMINAL PAIN Qualifiers: Abdominal location: unspecified location Qualified Code(s): R10.9 - Unspecified abdominal pain (2) Pancreatitis, chronic Code(s): K86.1 - OTHER CHRONIC PANCREATITIS Qualifiers: Pancreatitis type: other Qualified Code(s): K86.1 - Other chronic pancreatitis (3) Chronic active hepatitis C Code(s): K73.2 - CHRONIC ACTIVE HEPATITIS, NOT ELSEWHERE CLASSIFIED (4) Diabetes Code(s): E11.9 - TYPE 2 DIABETES MELLITUS WITHOUT COMPLICATIONS (5) Hepatitis C Code(s): B19.20 - UNSPECIFIED VIRAL HEPATITIS C WITHOUT HEPATIC COMA (6) Hypertension Code(s): I10 - ESSENTIAL (PRIMARY) HYPERTENSION (7) Pancreatic divisum Code(s): Q45.3 - [facility] CONGENITAL MALFORMATIONS OF PANCREAS AND PANCREATIC DUCT Visit type - Emergency Visit Emergency Visit: Yes ED Registration Date: 08/31/16 Care time: The patient presented to the Emergency Department on the above date and was hospitalized for further evaluation of their emergent condition. - New Patient This patient is new to me today: No - Critical Care Critical Care patient: No
[2016-09-01] MEDS ORDERED: MAGNESIUM SULF 50% (8.12 MEQ/2 ML-1 GM VIAL) IVPB ONE ×2 (17:42→20:45)
[2016-09-01] MEDS ORDERED: INSULIN (NOVOLOG) ASPART 100 UNITS/ML 10ML VIAL ONE ×2 (18:26→20:31)
[2016-09-01] MEDS: SODIUM CHLORIDE 1,000 ML IV SCH (20:36)
[2016-09-02] MEDS: SODIUM CHLORIDE 1,000 ML IV SCH ×3 (00:05→18:22)
[2016-09-02] MEDS: morphine CARPU-JECT 2 MG/1 ML DISP.SYRIN IVPUSH PRN ×3 (05:49→23:13)
[2016-09-02] MEDS: HEPARIN NA (PORCINE) 5,000 UNITS/ML 1ML VIAL SQ SCH ×3 (05:57→21:32)
[2016-09-02] MEDS: ONDANSETRON 4 MG/2 ML VIAL IVPB PRN ×2 (05:58→17:01)
[2016-09-02] MEDS: INSULIN SLIDING SCALE (NOVOLOG) 1 VIAL SQ SCH ×5 (06:01→21:32)
[2016-09-02] MEDS: ZEPATIER PO SCH (06:24)
[2016-09-02 07:31] LABS: BASOPHIL 0.6 % (0-2.0); EOSINOPHIL 1.1 % (0-4.5); MCH 27.4 pg (25.7-33.7); MEAN PLT VOLUME 8.1 fl (7.5-11.1); NEUTROPHILS 70.1 % (42.8-82.8); PLATELET COUNT 132 K/MM3 (134-434); RDW 13.7 % (11.6-15.6); WHITE BLOOD COUNT 4.6 K/mm3 (4.0-10.0)
[2016-09-02 07:46] LABS: CALCIUM 7.7 mg/dL (8.5-10.1); CREATININE 2.4 mg/dL (0.55-1.02)
[2016-09-02] MEDS ORDERED: PROPOFOL 20 ML ONE ×2 (07:51)
[2016-09-02] MEDS ORDERED: PT OWN MED DRAWER 7, Y5N ONE ×4 (08:01→17:28)
[2016-09-02] MEDS: LIPASE/PROTEASE/AMYLASE 6,000 UNIT CAPSULE PO SCH ×3 (08:46→17:22)
[2016-09-02] MEDS ORDERED: LIDOCAINE HCL/PF 1% SDV 5ML VIAL ONE (08:58)
--- NOTE | 2016-09-02 10:05 | PN ---
Progress Note (short form) - Note Progress Note: GI Procedure NOte: Please see scanned EGD report. A tight lower esophageal sphincter was biopsied and dilated. Given that hypertensive esophagus and achalasia cannot be excluded I have told Fran that she will need to be referred for esophageal manometry if her dysphagia fails to respond. A PPI has also been advised as gastritis was noted. Her diet will be advanced as she is now pain free. If tolerated she can be discharged to followup in our office with Dr Orellana.
[2016-09-02] MEDS: amLODIPine BESYLATE 10 MG TABLET (FP) PO SCH (11:22)
[2016-09-02] MEDS ORDERED: INSULIN (NOVOLOG) ASPART 100 UNITS/ML 10ML VIAL ONE ×2 (12:29→21:27)
--- NOTE | 2016-09-02 14:19 | DS ---
Physical Exam: SUBJECTIVE: Patient seen and examined. She tolerated salad and jello. She did vomit once, she has chronic pain OBJECTIVE: Vital Signs Period Temp Pulse Resp BP Sys/Flores Pulse Ox Last 24 Hr 98.2 F-98.7 F 72-104 16-20 134-169/67-84 96-98 PE Neuro: alert, awake, cn 2-12intact Pulm: CTAB CV: s1 s2 rrr no mrg Abd: melina umbilical tenderness, abd soft + vomiting Ext: warm, no le edema Laboratory Results - last 24 hr 09/02/16 09/02/16 09/02/16 05:56 06:10 06:10 WBC 4.6 RBC 3.19 L Hgb 8.7 L Hct 26.5 L MCV 83.0 MCHC 33.0 RDW 13.7 Plt Count 132 L MPV 8.1 Neutrophils % 70.1 Lymphocytes % 23.4 D Monocytes % 4.8 Eosinophils % 1.1 Basophils % 0.6 Sodium 142 Potassium 4.4 Chloride 107 Carbon Dioxide 23 Anion Gap 12 BUN 16 Creatinine 2.4 H POC Glucometer 246 Random Glucose 226 H D Calcium 7.7 L HOSPITAL COURSE: Date of Admission:08/31/16 Date of Discharge: 09/02/16 Minutes to complete discharge: 35 Discharge Summary Reason For Visit: PANCREATITIS Current Active Problems Abdominal pain (Acute) Abnormal UGI series (Acute) COPD exacerbation (Acute) DVT prophylaxis (Acute) Pancreatitis, chronic (Acute) Persistent vomiting (Acute) Pneumonia (Acute) Hospital Course: Initial Hospital Course: Briefly, this 61 year old female with Hepatitis C (on Zepatier), [place], HTN, DM, Chronic Renal Insufficiency, Anemia, Asthma was discharged yesterday after completing treatment for acute on chronic pancreatitis. After returning home she had a teaspoon of a fruit cup and tea. At 330am she began having abdominal pain referring to her chest causing her to leave her and return to the the hospital. She vomited twice, no blood, just phlegm. Subsequent Hospital Course/Progress Note/Discharge Summary by a/p: Plan: 1. Abdominal pain - UGIS shows stricture vs spasm - EGD shows: tight lower esophageal sphincter was biopsied and dilated. - Outpt f/u for esophageal manometry - Started protonix for gastritis - Dr. Orellana follow up in office 2. Acute on chronic pancreatitis - Lipase down trending/resolving - Start Pancrelipase TID; maintain 3. HTN - Norvasc 10mg daily 4. TARAS on CKD stage 4 - CKD likely diabetic nephropathy with normal serologic studies - Resume HERBIE - Trend Cr, currently around baseline - Renal follow up 5. Hx of Hep C - Continue Zepatier week 8 6. Anemia - Possibly of chronic dz - Ferrous sulfate TID 7. DM II - ISS, BGM ACHS 8. Pancreas Divism - Previous unsuccessful minor sphincterotomy at [facility] - Last colonoscopy in 2010, hyperplastic rectal polyp removed, a right colon lipoma and diverticulosis noted - EGD on 09/18/11 revealed an antral ulcer and GERD 9. Hypomagnesemia - Repleted 10. Vomiting - Phenergan x1 dose Dispo: - Home with above follow up and medications - Pt aware and agrees to above plan Condition: Stable - Instructions Diet, Activity, Other Instructions: Please return to the ED for any new, persistent, or worsening symptoms. Follow up with your PCP and GI doctor in 1 week Take new medications as directed they have been sent to your pharmacy Resume home medications Follow up with Dr. Araujo in 1-2 weeks for continued follow up Referrals: Janet Foy MD [Primary Care Provider] - Javi Orellana MD [Staff Physician] - Disposition: HOME - Home Medications Comprehensive Discharge Medication List: Ambulatory Orders Insulin Glargine,Hum.rec.anlog [Lantus (10mL VIAL) -] 20 units SQ DAILY Insulin Sliding Scale [Novolog Vial Sliding Scale -] 1 vial SQ ACHS units 11/21 Ascorbate Calcium [Vitamin C] 500 mg PO DAILY 08/27/16 Aspirin [ASA -] 81 mg PO DAILY 08/27/16 Cholecalciferol (Vitamin D3) [Vitamin D3] 2,000 unit PO DAILY 08/27/16 Quinapril HCl [Accupril -] 10 mg PO DAILY 08/27/16 Amlodipine Besylate [Norvasc -] 2.5 mg PO DAILY 08/31/16 Elbasvir/Grazoprevir [Zepatier 50-100 mg Tablet] 1 each PO ASDIR #0 08/31/16 Ferrous Sulfate [Feosol] 0 mg PO ASDIR 08/31/16 Fluticasone Propionate [Flovent Diskus] 2 puff IH PRN PRN 08/31/16 Lipase/Protease/Amylase [Maximo [place] 6,000 Units Capsule] 1 cap PO TIDCM #90 capsule. 09/02/16 Pantoprazole Sodium [Protonix -] 40 mg PO DAILY #30 tablet.ec 09/02/16 Problem List - Problems (1) Abdominal pain Code(s): R10.9 - UNSPECIFIED ABDOMINAL PAIN Qualifiers: Abdominal location: unspecified location Qualified Code(s): R10.9 - Unspecified abdominal pain (2) Pancreatitis, chronic Code(s): K86.1 - OTHER CHRONIC PANCREATITIS Qualifiers: Pancreatitis type: other Qualified Code(s): K86.1 - Other chronic pancreatitis (3) Chronic active hepatitis C Code(s): K73.2 - CHRONIC ACTIVE HEPATITIS, NOT ELSEWHERE CLASSIFIED (4) Diabetes Code(s): E11.9 - TYPE 2 DIABETES MELLITUS WITHOUT COMPLICATIONS (5) Hepatitis C Code(s): B19.20 - UNSPECIFIED VIRAL HEPATITIS C WITHOUT HEPATIC COMA (6) Hypertension Code(s): I10 - ESSENTIAL (PRIMARY) HYPERTENSION (7) Pancreatic divisum Code(s): Q45.3 - [facility] CONGENITAL MALFORMATIONS OF PANCREAS AND PANCREATIC DUCT This patient is new to me today: No Emergency Visit: Yes ED Registration Date: 08/31/16 Care time: The patient presented to the Emergency Department on the above date and was hospitalized for further evaluation of their emergent condition. Critical Care patient: No - Discharge Referral Referred to [facility] Med P.C.: No
[2016-09-02] MEDS ORDERED: INSULIN (NOVOLOG) ASPART 100 UNITS/ML 10ML VIAL SQ ONE (17:14)
[2016-09-02] MEDS ORDERED: PROMETHAZINE HCL 25 MG/1 ML VIAL IVPB ONE (17:15)
[2016-09-03] MEDS: SODIUM CHLORIDE 1,000 ML IV SCH ×2 (01:02→07:13)
[2016-09-03] MEDS: HEPARIN NA (PORCINE) 5,000 UNITS/ML 1ML VIAL SQ SCH (06:40)
[2016-09-03] MEDS: INSULIN SLIDING SCALE (NOVOLOG) 1 VIAL SQ SCH (06:40)
[2016-09-03] MEDS: ZEPATIER PO SCH (06:42)
[2016-09-03 08:02] VITALS: BP 161/81; PULSE 91; TEMP 98.6
[2016-09-03] MEDS ORDERED: PT OWN MED DRAWER 7, Y5N ONE (08:10)
[2016-09-03] MEDS: LIPASE/PROTEASE/AMYLASE 6,000 UNIT CAPSULE PO SCH (08:11)
[2016-09-03] MEDS: amLODIPine BESYLATE 10 MG TABLET (FP) PO SCH (09:06)
--- NOTE | 2016-09-03 11:39 | PATH ---
Surgical Pathology Report Patient Name: DIYA MCCULLOUGH [facility]. Rec. #: [id number] /Age/Gender: 1955 (Age: 61) / F Account: [id number] Location: [facility] MED/SURG Taken: 09/02/2016 Received: 09/02/2016 Reported: 09/03/2016 Physicians: Payal Hirsch M.D. Specimen(s) Received A: BX 2ND PORTION DUODENUM & DUODENAL BULB B: BX ANTRUM C: BX GE JUNCTION D: BX MID ESOPHAGUS Clinical History Dysphagia, abnormal x-ray Gastritis, esophageal stricture Final Diagnosis A. DUODENUM, SECOND PORTION AND BULB, BIOPSY: DUODENAL MUCOSA WITH NO PATHOLOGIC CHANGES. NO HISTOLOGIC EVIDENCE OF GLUTEN SENSITIVE ENTEROPATHY (CELIAC SPRUE) IDENTIFIED. B. STOMACH, ANTRUM, BIOPSY: MILD CHRONIC GASTRITIS WITH REACTIVE GASTROPATHY AND FOCAL INTESTINAL METAPLASIA. NO DYSPLASIA IDENTIFIED. IMMUNOSTAIN FOR H. PYLORI IS NEGATIVE. C. GE JUNCTION, BIOPSY: SQUAMOUS EPITHELIUM WITH PAPILLOMATOSIS SUGGESTIVE OF REFLUX ESOPHAGITIS. NO INTESTINAL METAPLASIA IDENTIFIED (NO VILLARREAL'S IDENTIFIED). D. MID ESOPHAGUS, BIOPSY: SQUAMOUS EPITHELIUM WITH PAPILLOMATOSIS SUGGESTIVE OF REFLUX ESOPHAGITIS. NO EOSINOPHILIC ESOPHAGITIS IDENTIFIED. Electronically Signed Fdai Lopez M.D. Gross Description A. Received in formalin, labeled "biopsy second portion of duodenum and duodenal bulb" are 3 varner, irregular portions of soft tissue ranging from 0.4-0.7 cm. in greatest dimension. The specimens are submitted in toto in one cassette. B. Received in formalin, labeled "biopsy antrum" are 7 varner, irregular portions of soft tissue ranging from 0.1-0.3 cm. in greatest dimension. The specimens are submitted in toto in one cassette. C. Received in formalin, labeled "biopsy GE junction" is a varner, irregular portion of soft tissue measuring 0.5 cm. in greatest dimension. The specimen is submitted in toto in one cassette. D. Received in formalin, labeled "biopsy midesophagus" is a varner, irregular portion of soft tissue measuring 0.5 cm. in greatest dimension. The specimen is submitted in toto in one cassette. DL/09/02/2016 saudi09/02/2016
== END 2016-09-03 09:53 | disposition home or self-care (01) ==
LOC: JER 03:51 → JERBED 08:01 → J7W 11:42
PROVIDERS: ADMIT Internal Medicine; ATTEND Nurse Practitioner Family
PROC: 0DB58ZX Excision of Esophagus, Via Natural or Artificial Opening Endoscopic, Diagnostic (ICD-10-PCS; 2016-09-02)
PROC: 0DB68ZX Excision of Stomach, Via Natural or Artificial Opening Endoscopic, Diagnostic (ICD-10-PCS; 2016-09-02)
PROC: 0D758ZZ Dilation of Esophagus, Via Natural or Artificial Opening Endoscopic (ICD-10-PCS; 2016-09-02)
PROC: 0DB98ZX Excision of Duodenum, Via Natural or Artificial Opening Endoscopic, Diagnostic (ICD-10-PCS; principal; 2016-09-02 08:30)
DX: K85.80 Other acute pancreatitis without necrosis or infection (principal); R11.2 Nausea with vomiting, unspecified; I25.2 Old myocardial infarction; J45.909 Unspecified asthma, uncomplicated; K86.1 Other chronic pancreatitis; R10.9 Unspecified abdominal pain; I49.3 Ventricular premature depolarization; J44.9 Chronic obstructive pulmonary disease, unspecified; E11.319 Type 2 diabetes mellitus with unspecified diabetic retinopathy without macular edema; E11.40 Type 2 diabetes mellitus with diabetic neuropathy, unspecified; E11.21 Type 2 diabetes mellitus with diabetic nephropathy; K21.9 Gastro-esophageal reflux disease without esophagitis; K57.90 Diverticulosis of intestine, part unspecified, without perforation or abscess without bleeding; K73.2 Chronic active hepatitis, not elsewhere classified; Q45.3 Other congenital malformations of pancreas and pancreatic duct; I12.9 Hypertensive chronic kidney disease with stage 1 through stage 4 chronic kidney disease, or unspecified chronic kidney disease; N18.4 Chronic kidney disease, stage 4 (severe); N17.8 Other acute kidney failure; D64.9 Anemia, unspecified; R93.3 Abnormal findings on diagnostic imaging of other parts of digestive tract; E83.42 Hypomagnesemia; K22.8 Other specified diseases of esophagus; K22.0 Achalasia of cardia; K29.60 Other gastritis without bleeding
CPT/HCPCS: 36415; 71020-TC; 74240-TC; 80048; 80053; 81003; 81015; 82150; 82550; 82553; 82947; 83690; 83735; 84100; 84484; 85025; 88305-TC; 88342-TC; 93005; 93010; 99283-25; G0378; J1644

== ENCOUNTER 2017-03-23 07:13 | Day surgery (SDC) | payer BC ==
[2017-03-22 11:36] VITALS: BMI 19.9
[2017-03-23] MEDS ORDERED: PROPOFOL 20 ML ONE ×5 (08:36)
[2017-03-23] MEDS ORDERED: LIDOCAINE HCL/PF 2% SDV 5ML VIAL ONE (08:36)
[2017-03-23 11:05] VITALS: TEMP 97.9
[2017-03-23 12:06] VITALS: BP 146/68; PULSE 62
--- NOTE | 2017-03-24 14:28 | PATH ---
Surgical Pathology Report Patient Name: DIYA MCCULLOUGH [facility]. Rec. #: [id number] /Age/Gender: 1955 (Age: 62) / F Account: [id number] Location: U-ENDOSCOPY Taken: 03/23/2017 Received: 03/23/2017 Reported: 03/24/2017 Physicians: Javi Orellana M.D. Specimen(s) Received A: BX CECAL POLYP B: RECTOSIGMOID POLYPS Clinical History Screening Pre-evaluation of renal transplant Polyps Final Diagnosis A. COLON, CECUM, POLYP, BIOPSY: FRAGMENTS OF TUBULAR ADENOMA. B. COLON, RECTOSIGMOID, POLYPS, POLYPECTOMY: TUBULAR ADENOMA. ADDITIONAL FRAGMENTS OF HYPERPLASTIC POLYPS, ONE WITH FEATURES SUGGESTIVE OF SESSILE SERRATED ADENOMA AND A POSTINFLAMMATORY-TYPE POLYP. Electronically Signed Chace Humphreys M.D. Gross Description A. Received in formalin, labeled "biopsy cecal polyp" are 2 varner, irregular portions of soft tissue measuring 0.2 and 0.5 cm in greatest dimension. The specimens are submitted in toto in one cassette. B. Received in formalin, labeled "biopsy rectosigmoid polyps" are 5 varner, irregular portions of soft tissue ranging from 0.1-1.1 cm in greatest dimension. The specimens are submitted in toto in one cassette. 03/23/201703/23/2017
== END 2017-03-23 12:33 | disposition home or self-care (01) ==
LOC: JASU-ENDO 07:13
PROVIDERS: ATTEND Internal Medicine Gastroenterology
PROC: 0DBH8ZX Excision of Cecum, Via Natural or Artificial Opening Endoscopic, Diagnostic (ICD-10-PCS; 2017-03-23)
PROC: 0DBN8ZX Excision of Sigmoid Colon, Via Natural or Artificial Opening Endoscopic, Diagnostic (ICD-10-PCS; principal; 2017-03-23 08:45)
DX: Z12.11 Encounter for screening for malignant neoplasm of colon (principal); K62.1 Rectal polyp; D12.0 Benign neoplasm of cecum; D12.7 Benign neoplasm of rectosigmoid junction
CPT/HCPCS: 88305-TC

== ENCOUNTER 2017-08-11 07:21 | Day surgery (SDC) | payer BC ==
[2017-08-10 11:36] VITALS: BMI 19.8
[2017-08-11] MEDS ORDERED: BUPIVACAINE HCL/PF 0.5% (5MG/ML) 10 ML VIAL ONE (09:16)
--- NOTE | 2017-08-11 09:16 | HP ---
Satellite [facility] - Chief Complaint History of Present Illness: 62 year old woman with renal failure who will need dialysis soon. She wishes to start peritoneal dialysis. - Past Medical History Allergies/Adverse Reactions: Allergies Allergy/AdvReac Type Severity Reaction Status Date / Time ibuprofen [From Motrin] Allergy Swelling Verified 08/10/17 11:36 Cardiovascular: Yes: HTN, [place] (on 1999 with unsuccessful stenting), Other ( peripheral vascular disease) Pulmonary: Yes: COPD Gastrointestinal: Yes: Diverticulosis, GERD, Pancreatitis (pancreas divisum), Other (hyperplastic rectal polyp 2010, antral ulcer 2011) Hepatobiliary: Yes: Hepatitis C (being treated with Zepatier week 8) Renal/: Yes: Renal Inusuff Infectious Disease: Yes: Other (hep c) Endocrine: Yes: Diabetes Mellitus (retinopathy, neuropathy and nephropathy ) - Current Medications Current Medications: Home Medications Medication Instructions Recorded Aspirin [ASA -] 81 mg PO DAILY 08/27/16 Cholecalciferol (Vitamin D3) 1,000 unit PO DAILY 08/27/16 [Vitamin D3] Amlodipine Besylate [Norvasc -] 5 mg PO DAILY 08/31/16 Insulin Aspart [Novolog Flexpen] 100 unit SQ PRN 03/22/17 Insulin Glargine,Hum.rec.anlog 14 units SQ DAILY 03/22/17 [Lantus Solostar PEN -] Iron,Carb/Vit C/Vit B12/Folic 1 each PO BID 03/23/17 [Iron 100 Plus Tablet] Vitamin E 400 unit PO DAILY 08/11/17 Satellite Physical Exam - Physical Examination Vital Signs: Vital Signs Period Temp Pulse Resp BP Sys/Flores Pulse Ox Last 24 Hr 97.6 F-97.6 F 81-81 20-20 156-156/91-91 100 General Appearance: Alert & Oriented x3 ENT: Clear Lung: Clear to auscultation Heart: Regular rate & rhythm Abdomen: Soft Extremities: No edema Satellite Impression/Plan - Impression/Plan Impression: Chronic kidney disease, stage 5 Operative Procedure: Laparoscopy, placement of peritoneal dialysis catheter Date to be Performed: 08/11/17
[2017-08-11] MEDS ORDERED: MIDAZOLAM HCL 2 MG/2 ML SINGLE DOSE VIAL ONE (09:24)
[2017-08-11] MEDS ORDERED: PROPOFOL 20 ML ONE (09:25)
[2017-08-11] MEDS ORDERED: ROCURONIUM BROMIDE 50 MG/5 ML VIAL ONE (09:25)
[2017-08-11] MEDS ORDERED: ONDANSETRON 4 MG/2 ML VIAL IVPUSH PRN (09:28)
[2017-08-11] MEDS ORDERED: LACTATED RINGERS SOLUTION 1,000 ML IV SCH (09:30)
[2017-08-11] MEDS ORDERED: ceFAZolin SODIUM 1 GM VIAL IVPB ONE (09:57)
[2017-08-11] MEDS ORDERED: ceFAZolin SODIUM 1 GM VIAL ONE ×2 (10:01→10:35)
[2017-08-11] MEDS ORDERED: BUPIVACAINE HCL/PF 0.5% (5MG/ML) 10 ML VIAL IJ ONE (10:15)
[2017-08-11] MEDS ORDERED: GLYCOPYRROLATE 0.2 MG/1 ML VIAL ONE (10:35)
[2017-08-11] MEDS ORDERED: DEXAMETHASONE SOD PHOSPHATE 4 MG/1 ML VIAL ONE (10:35)
[2017-08-11] MEDS ORDERED: LIDOCAINE HCL/PF 2% SDV 5ML VIAL ONE (10:35)
[2017-08-11] MEDS ORDERED: NEOSTIGMINE METHYLSULFATE 0.5 MG/ML - 10 ML MDV ONE (10:35)
[2017-08-11] MEDS ORDERED: ACETAMINOPHEN 325 MG TABLET (FP) PO PRN ×3 (10:53→14:12)
--- NOTE | 2017-08-11 10:53 | OP ---
Operative Note - Note: Operative Date: 08/11/17 Pre-Operative Diagnosis: Chronic kidney disease, stage 5 Operation: Laparoscopy, placement peritoneal dialysis catheter, lysis of adhesions Findings: Multiple adhesions of omentum to abdominal wall. Bilateral indirect hernias Implants: Double cuff [place] neck right coiled Tenckhoff catheter Post-Operative Diagnosis: Same as Pre-op Surgeon: Randy Nicolas Anesthesiologist/[employer] METAL: Summer Ritter MD Anesthesia: General Estimated Blood Loss (mls): 5
[2017-08-11] MEDS ORDERED: oxyCODONE HCL 5 MG TABLET ONE (13:16)
[2017-08-11] MEDS ORDERED: oxyCODONE HCL 5 MG TABLET PO PRN ×2 (14:11→14:12)
[2017-08-11 14:49] VITALS: BP 157/94; PULSE 71; TEMP 97.9
--- NOTE | 2017-08-12 00:38 | OP ---
DATE OF OPERATION: 08/11/2017 SURGEON: Randy Graff M.D. PROCEDURE: Laparoscopy with placement of perineal dialysis catheter and lysis of multiple adhesions. PREOPERATIVE DIAGNOSIS: Chronic kidney disease stage 5. POSTOPERATIVE DIAGNOSIS: Chronic kidney disease stage 5. Interrupted abdominal adhesions. ANESTHESIA: General. ANESTHESIOLOGIST: Summer Ritter M.D. OPERATIVE FINDINGS: There were multiple adhesions between the omentum and the anterior abdominal wall. After adhesiolysis, the pelvis was clear of scar tissue. OPERATIVE PROCEDURE: Following routine patient identification, general anesthesia was induced. The abdomen was prepped with Chloraprep. Timeout was performed. A Veress needle was inserted atraumatically through the umbilicus and pneumoperitoneum was established with carbon dioxide to 15 mmHg pressure. Marcaine was infiltrated in the midline above the umbilicus and a 5-mm was placed under direct visualization. A 5-mm angle laparoscope was then employed to explore the abdomen with the above noted findings. A 2nd 5-mm port was placed in the left side of the abdomen under direct vision. The Ligasure was then used to divide adhesions of omentum to the anterior abdominal wall until the abdominal wall was freed, and there were no adhesions seen in the pelvis. Of note, there were 2 small indirect hernias identified. Marcaine was infiltrated above and to the left of the umbilicus, and a small incision was made. An 8-mm bladeless trocar was then advanced to the underside of the peritoneum and then directed towards the pelvis, where it entered the peritoneal cavity. A swan neck curled double cuff Tenckhoff catheter was then straightened and passed through this port, and deployed into the pelvis. The inner cuff was left just deep to the fascia, and the other end of the catheter was then attached to a metal tunneler which was brought out in the right lower quadrant abdominal wall. The Luer lock adapter was placed on the tubing and 1 L of saline was run into the abdominal cavity under gravity in less than 3.5 minutes. The bag was dropped to the floor and there was free drainage of fluid, and this was capped at 600 mL. All ports were removed, all skin incisions were closed with subcutaneous sutures of 3-0 Vicryl and subcuticular suture of 4-0 Biosyn. Sterile dressings were applied with Dermabond glue, and the catheter was taped to the skin, and an ABD pad placed over it. Patient was extubated, taken to the recovery room in stable condition. RANDY GRAFF M.D. [id number]
== END 2017-08-11 14:55 | disposition home or self-care (01) ==
LOC: JASU-SURG 07:21
PROVIDERS: ATTEND Surgery
PROC: 0WHG43Z Insertion of Infusion Device into Peritoneal Cavity, Percutaneous Endoscopic Approach (ICD-10-PCS; principal; 2017-08-11 09:00)
DX: I12.0 Hypertensive chronic kidney disease with stage 5 chronic kidney disease or end stage renal disease (principal); E11.8 Type 2 diabetes mellitus with unspecified complications
CPT/HCPCS: 82962

== ENCOUNTER 2018-03-31 00:19 | Emergency (ER) | payer BC ==
[2018-03-31 00:45] VITALS: BMI 20.2
--- NOTE | 2018-03-31 00:45 | PDOC ---
Attending Attestation - Resident Resident Name: Cheri Platt - ED Attending Attestation I have performed the following: I have examined & evaluated the patient, The case was reviewed & discussed with the resident, I agree w/resident's findings & plan, Exceptions are as noted - Medical Decision Making 03/31/18 00:44 I, Dr. Doreen Lay, DO, attest that this document has been prepared under my direction and personally reviewed by me in its entirety. I further attest, that it accurately reflects all work, treatment, procedures and medical decision -making performed by me. 03/31/18 01:18 a/p: 63yo female with n/v tonight - missed PD HD, elevated glucose and muscle cramping -concern for electrolyte abnl -also with an episode of cp earlier tonight -will send labs, ekg, cxr -pt appears dehydrated with a dry cracked tongue -pt with nonbloody/nonbilious vomiting -no diarrhea -no abd pain -will hydrate, will give insulin pending glucose/vbg -will monitor and reassess 03/31/18 01:19 Dr. Naa Loredo is Nephro <Doreen Lay - Last Filed: 03/31/18 01:19> - HPI HPI: 03/31/18 01:53 The patient is a 63 year old female with past medical history significant for HTN, PR (on 1999 with unsuccessful stenting), peripheral vascular disease, COPD , Diverticulosis, GERD, Pancreatitis (pancreas divisum), hyperplastic rectal polyp 2010, antral ulcer 2011, Hepatitis C, Chronic kidney disease, stage 5 (on peritoneal dialysis catheter), DM (retinopathy, neuropathy and nephropathy ) presents to the emergency department with nausea and vomiting. The patient presents following episodes of nausea and nonbilious-bloody vomiting. The patient states she missed her dialysis today. The patient reports additional concern of generalized body ache. Allergies: Ibuprofen. Social history: Former smoker. No past or present use of alcohol or recreational drug use reported. Past Surgical History: , Hysterectomy (leaving left ovary intact), Tonsillectomy. Laparoscopy, placement peritoneal dialysis catheter, lysis of adhesions (08/11/2017) by Randy Golden. PCP: Not on staff. Fire Extinguisher Charger: Dr. Naa Healy. - Physicial Exam PE: 03/31/18 01:31 GENERAL: Awake, alert, and fully oriented, in no acute distress HEAD: No signs of trauma EYES: PERRLA, EOMI, sclera anicteric, conjunctiva clear ENT: (+) Dry mucus member, tacky mucous membranes. Auricles normal inspection, hearing grossly normal, nares patent, oropharynx clear without exudates. NECK: (+) JVD bilaterally. Normal ROM, supple, no lymphadenopathy or masses LUNGS: Breath sounds equal, clear to auscultation bilaterally. No wheezes, and no crackles HEART: Regular rate and rhythm, normal S1 and S2, no murmurs, rubs or gallops ABDOMEN: PD cath to the R. lower quadrant with no surrounding erythema. Soft, nontender, normoactive bowel sounds. No guarding, no rebound. No masses EXTREMITIES: Pedial pulse intact. Trace edema to the legs, no calf tenderness. Normal range of motion, no edema. No clubbing or cyanosis. No cords, erythema, or tenderness NEUROLOGICAL: Cranial nerves II through XII grossly intact. Normal speech. SKIN: Warm, Dry, normal turgor, no rashes or lesions noted. - Medical Decision Making 03/31/18 01:31 Documentation prepared by Kely Delacruz, acting as medical assisting program director for Doreen Lay DO. <Kely Delacruz - Last Filed: 03/31/18 01:53>
[2018-03-31] MEDS ORDERED: morphine CARPU-JECT 2 MG/1 ML DISP.SYRIN IVPUSH ONE (01:11)
[2018-03-31] MEDS ORDERED: MORPHINE SULFATE 2 MG/ML VIAL ONE (01:13)
[2018-03-31] MEDS ORDERED: ONDANSETRON 4 MG/2 ML VIAL IVPUSH ONE (01:17)
[2018-03-31] MEDS ORDERED: FAMOTIDINE 20 MG/50 ML IVPB 20 MG/50 ML MG IVPB ONE ×2 (01:17→01:30)
[2018-03-31] MEDS ORDERED: SODIUM CHLORIDE 500 ML IV STA (01:29)
[2018-03-31] MEDS ORDERED: ONDANSETRON 4 MG/2 ML VIAL ONE (01:30)
[2018-03-31 01:38] LABS: BASO % 0.7 % (0-2.0); EOS % 0.9 % (0-4.5); HEMATOCRIT 36.5 % (32.4-45.2); HEMOGLOBIN 12.1 GM/dL (10.7-15.3); LYMPH % 15.6 % (8-40); MCH 28.6 pg (25.7-33.7); MCHC 33.2 g/dl (32.0-36.0); MEAN CELL VOLUME 85.9 fl (80-96); MEAN PLT VOLUME 7.5 fl (7.5-11.1); MONO % 5.5 % (3.8-10.2); NEUT % 77.3 % (42.8-82.8); PLATELET COUNT 265 K/MM3 (134-434); RBC 4.25 M/mm3 (3.60-5.2); RDW 14.3 % (11.6-15.6); WHITE BLOOD COUNT 7.7 K/mm3 (4.0-10.0)
--- NOTE | 2018-03-31 01:38 | PDOC ---
History of Present Illness - General Chief Complaint: Blood Sugar Problem Stated Complaint: DIABETIC EMERGENCY Time Seen by Provider: 03/31/18 00:36 - History of Present Illness Initial Comments: 63yo with PMH of DM with retinopathy/neuropathy, [place] in 2001, gastric ulcer, pancreatitis, daily peritoneal dialysis presenting with body pain and high glucose level. Home glucose reading today was in the 600s and level checked by EMS in the 400s. Patient reports that she had muscle cramps in her legs, chest, and arms today that prevented her from starting dialysis. She has had similar cramps in the past but not this severe, and not in so many areas of her body. Patient reports nausea and five episodes of NBNB vomiting. She also has non- pleuritic non-radiating chest pain that she attributes to her muscle cramps. Patient endorses chills and generalized weakness. Past History - Past Medical History Allergies/Adverse Reactions: Allergies Allergy/AdvReac Type Severity Reaction Status Date / Time ibuprofen [From Motrin] Allergy Swelling Verified 08/10/17 11:36 Home Medications: Ambulatory Orders Aspirin [ASA -] 81 mg PO DAILY 08/27/16 Cholecalciferol (Vitamin D3) [Vitamin D3] 1,000 unit PO DAILY 08/27/16 Amlodipine Besylate [Norvasc -] 5 mg PO DAILY 08/31/16 Insulin Aspart [Novolog Flexpen] 100 unit SQ PRN 03/22/17 Insulin Glargine,Hum.rec.anlog [Lantus Solostar PEN -] 14 units SQ DAILY Iron,Carb/Vit C/Vit B12/Folic [Iron 100 Plus Tablet] 1 each PO BID 03/23/17 Acetaminophen W/ Codeine #3 [Tylenol # 3 -] 1 tab PO Q6H PRN #20 tablet MDD 4 Vitamin E 400 unit PO DAILY 08/11/17 Anemia: No Asthma: Yes (CHRONIC BRONCHITIS) Cancer: No Cardiac Disorders: Yes (ASHD [place] 2001, CARDIAC/ANGIOPLASTY) CVA: No COPD: No CHF: No Dementia: No Diabetes: Yes (WITH RETINOPATHY & NEUROPATHY) Dialysis: Yes GI Disorders: Yes (PANCREATITIS, GASTRIC ANTRUM ULCER,) Disorders: No HTN: Yes Hypercholesterolemia: No Liver Disease: No Seizures: No Thyroid Disease: No - Surgical History Abdominal Surgery: No Appendectomy: No Cardiac Surgery: No Cholecystectomy: No Lung Surgery: No Neurologic Surgery: No Orthopedic Surgery: No - Immunization History Td Vaccination: No TDAP Vaccination: No Immunization Up to Date: Yes - Suicide/Smoking/Psychosocial Hx Smoking Status: No Smoking History: Former smoker Have you smoked in the past 12 months: No Number of Cigarettes Smoked Daily: 0 If you are a former smoker, when did you quit?: 2011 Information on smoking cessation initiated: No 'Breaking Loose' booklet given: 04/05/16 Hx Alcohol Use: No Drug/Substance Use Hx: No Substance Use Type: None Hx Substance Use Treatment: No Review of Systems - Review of Systems Able to Perform ROS?: Yes Comments:: Constitutional: no fever, no chills HEENT: no throat pain, no dysphagia Cardiovascular: +chest pain, no palpitations Respiratory: no cough, no shortness of breath Gastrointestinal: +nausea, +vomiting, no abdominal pain Genitourinary: no dysuria, no frequency Musculoskeletal: +myalgia, no arthralgia Skin: no rash, no itching Neurologic: no headache, no dizziness *Physical Exam - Vital Signs Last Vital Signs Temp Pulse Resp BP Pulse Ox 97.3 F L 77 19 187/78 H 100 03/31/18 00:20 03/31/18 00:20 03/31/18 00:20 03/31/18 00:03/31/18 00:20 - Physical Exam Comments: General: Awake, alert, and fully oriented, in no acute distress Head: no signs of trauma Eyes: EOMI, sclera anicteric ENT: Dry mucus membranes, Neck: Normal ROM, supple Lungs: Lungs clear, Normal breath sounds Cardio: Regular rhythm, S1 and S2 present Abdomen: Soft, nontender, Site of peritoneal dialysis on RLQ Extremities: Normal range of motion, Distal pulses present SKIN: Warm, Dry, normal turgor Neurologic: Cranial nerves II through XII grossly intact. Normal speech ED Treatment Course - LABORATORY CBC & Chemistry Diagram: 03/31/18 01:21 03/31/18 01:21 - RADIOLOGY Radiology Studies Ordered: Category Date Time Status CXRPORT [CHEST X-RAY PORTABLE*] [RAD] Stat Radiology 03/31/18 01:14 Ordered - Medications Given in the ED: ED Medications Discontinued Medications Generic Name Dose Route Start Last Admin Trade Name Freq PRN Reason Stop Dose Admin Morphine Sulfate 2 mg 03/31/18 01:11 03/31/18 01:28 Morphine Injection - IVPUSH 03/31/18 01:12 2 mg ONCE ONE Administration Medical Decision Making - Medical Decision Making 63yo F with muscle cramps. Labs: BGM 188, no leukocytosis or anemia, K=3.4, Mag=2.6 CXR: no acute pathology 500ml NS Morphine 2mg 1st Tpn negative, will repeat at 4:20 03/31/18 04:04 Second Tpn negative Patient reports feeling better Will discharge. Patient amenable to plan 03/31/18 05:52 *DC/Admit/Observation/Transfer Diagnosis at time of Disposition: Muscle cramps - Discharge Dispostion Disposition: HOME Condition at time of disposition: Improved - Referrals Referrals: Janet Foy MD [Primary Care Provider] - Naa Christensen MD [Staff Physician] - - Patient Instructions Printed Discharge Instructions: DI for Hyperglycemia -- Adult Additional Instructions: You came into the ED for muscle cramps and a high blood sugar level. Our workup did not show acute pathology. Continue peritoneal dialysis daily as directed by your physician. Follow-up with your gas turbine powerplant mechanic helper, Dr. Christensen, for further evaluation. Contact your doctor if any of the following occur: -Signs of infection, including fever and chills. Redness, swelling, increasing pain, excessive bleeding, or discharge at the catheter or tube insertion site -Blood or cloudiness in the peritoneal diaysis fluid -Nausea or vomiting -Abdominal pain -Lightheadedness If you think you are having an emergency, call for emergency medical services right away - Post Discharge Activity
[2018-03-31 01:59] LABS: VENOUS PC02 56.7 mmHg (38-52); VENOUS PH 7.34 (7.32-7.42); VENOUS PO2 24.8 mmHg (28-48)
[2018-03-31 02:03] LABS: ALK PHOS 74 U/L (45-117); ANION GAP 9 MMOL/L (8-16); BILIRUBIN,TOTAL 0.3 mg/dL (0.2-1); BLOOD UREA NITROGEN 51 mg/dL (7-18); CALCIUM 7.8 mg/dL (8.5-10.1); CHLORIDE 97 mmol/L (98-107); CO2 31 mmol/L (21-32); CREATININE 6.4 mg/dL (0.55-1.3); GLUCOSE,RANDOM 188 mg/dL (74-106); MAGNESIUM 2.6 mg/dL (1.8-2.4); POTASSIUM 3.4 mmol/L (3.5-5.1); SGOT/AST 44 U/L (15-37); SGPT/ALT 40 U/L (13-61); SODIUM 136 mmol/L (136-145); TOT PROT 6.9 g/dl (6.4-8.2)
[2018-03-31 06:25] VITALS: BP 147/75; PULSE 81; TEMP 98.5
--- NOTE | 2018-03-31 09:33 | EKG ---
Test Reason : Blood Pressure : / mmHG Vent. Rate : 091 BPM Atrial Rate : 091 BPM P-R Int : 150 ms QRS Dur : 092 ms QT Int : 396 ms P-R-T Axes : 078 -13 065 degrees QTc Int : 487 ms POOR DATA QUALITY, INTERPRETATION MAY BE ADVERSELY AFFECTED NORMAL SINUS RHYTHM ANTERIOR INFARCT (CITED ON OR BEFORE 31-AUG-2016) ABNORMAL ECG WHEN COMPARED WITH ECG OF 31-AUG-2016 07:00, QUESTIONABLE CHANGE IN INITIAL FORCES OF SEPTAL LEADS Confirmed by JAMES WHITMORE MD ([id number]) on 03/31/2018 9:33:34 AM Referred By: Confirmed By:JAMES WHITMORE MD
== END 2018-03-31 06:25 | disposition home or self-care (01) ==
LOC: JER 00:19
PROC: 3E033GC Introduction of Other Therapeutic Substance into Peripheral Vein, Percutaneous Approach (ICD-10-PCS; principal; 2018-03-31)
PROC: 3E033GC Introduction of Other Therapeutic Substance into Peripheral Vein, Percutaneous Approach (ICD-10-PCS; 2018-03-31)
PROC: 3E033NZ Introduction of Analgesics, Hypnotics, Sedatives into Peripheral Vein, Percutaneous Approach (ICD-10-PCS; 2018-03-31)
DX: R25.2 Cramp and spasm (principal); E11.42 Type 2 diabetes mellitus with diabetic polyneuropathy; E11.39 Type 2 diabetes mellitus with other diabetic ophthalmic complication; Z79.4 Long term (current) use of insulin; Z79.84 Long term (current) use of oral hypoglycemic drugs; Z87.891 Personal history of nicotine dependence; R85.9 Unspecified abnormal finding in specimens from digestive organs and abdominal cavity; Z79.01 Long term (current) use of anticoagulants; Z88.8 Allergy status to other drugs, medicaments and biological substances; I25.10 Atherosclerotic heart disease of native coronary artery without angina pectoris; I13.11 Hypertensive heart and chronic kidney disease without heart failure, with stage 5 chronic kidney disease, or end stage renal disease; N18.6 End stage renal disease; Z99.2 Dependence on renal dialysis
CPT/HCPCS: 36415; 71045-TC-FY; 80053; 82550; 82553; 82803; 83735; 84484; 85025; 93005; 93010; 99283-25; J7030

== ENCOUNTER 2018-12-25 11:58 | Emergency (ER) | payer BC, OTHER ==
[2018-12-25] MEDS ORDERED: SODIUM CHLORIDE 1,000 ML IV STA (12:00)
--- NOTE | 2018-12-25 12:00 | PDOC ---
History of Present Illness - General Stated Complaint: UNCONSCIOUS Time Seen by Provider: 12/25/18 12:00 History Source: Patient Exam Limitations: No Limitations, Clinical Condition, Unresponsive - History of Present Illness Initial Comments: 63 yo F w a hx of IDDM with retinopathy/neuropathy, [place] in 2001, gastric ulcer, pancreatitis presents to the [facility] unresponsive shortly after she received 23 units of insulin from her . When the patient arrived to the ER with EMS she was unresponsive and diffusely diaphoretic. She was unresponsive to sternal rub. Her fingerstick on route was noted to be 84 by EMS. When she arrived to the ER she was immediately brought into room 10 where a code schultz was called and airway equipment was set up prior to transport to CT. A repeat fingerstick obtained at bedside was noted to be 34. IV access was immediately obtained and a push of D50 administered. Shortly after the patient woke up, re-gained consciousness, and was alert and oriented. She knew her name , what day it was, and her birthday. She was confused and asked where she was and why she was in the hospital. The patient's states that before the patient went unconscious she started shaking her hands. She was unconscious for around 20 minutes before EMS brought her into the ED. Allergies: Ibuprofen. Social history: Former smoker. No past or present use of alcohol or recreational drug use reported. Past Surgical History: Recent Kidney transplant 04/2018, , Hysterectomy (leaving left ovary intact), Tonsillectomy. Laparoscopy, placement peritoneal dialysis catheter, lysis of adhesions (08/11/2017) by Randy Golden. PCP: Dr. Janet Foy Automotive Product Engineer: Dr. Naa Healy. Past History - Past Medical History Allergies/Adverse Reactions: Allergies Allergy/AdvReac Type Severity Reaction Status Date / Time ibuprofen [From Motrin] Allergy Swelling Verified 12/25/18 12:43 Home Medications: Ambulatory Orders Aspirin [ASA -] 81 mg PO DAILY 08/27/16 Insulin Aspart [Novolog Flexpen] 100 unit SQ PRN 03/22/17 Insulin Glargine,Hum.rec.anlog [Lantus Solostar PEN -] 23 units SQ DAILY Calcitriol [Rocaltrol -] 0.25 mcg PO DAILY 12/25/18 Docusate Sodium [Colace] 100 mg PO TID PRN 12/25/18 Famotidine [Pepcid] 20 mg PO DAILY 12/25/18 Mycophenolate Mofetil [Cellcept] 250 mg PO BID 12/25/18 Prednisone 5 mg PO DAILY 12/25/18 Sennosides [Senna] 17.2 mg PO BID PRN 12/25/18 Tacrolimus Anhydrous [Prograf] 1 mg PO BID 12/25/18 Anemia: No Asthma: Yes (CHRONIC BRONCHITIS) Cancer: No Cardiac Disorders: Yes (ASHD [place] 2001, CARDIAC/ANGIOPLASTY) CVA: No COPD: No CHF: No Dementia: No Diabetes: Yes (WITH RETINOPATHY & NEUROPATHY) Dialysis: Yes GI Disorders: Yes (PANCREATITIS, GASTRIC ANTRUM ULCER,) Disorders: No HTN: Yes Hypercholesterolemia: No Liver Disease: No Seizures: No Thyroid Disease: No - Surgical History Abdominal Surgery: No Appendectomy: No Cardiac Surgery: No Cholecystectomy: No Lung Surgery: No Neurologic Surgery: No Orthopedic Surgery: No - Immunization History Td Vaccination: No TDAP Vaccination: No Immunization Up to Date: Yes - Suicide/Smoking/Psychosocial Hx Smoking Status: No Smoking History: Former smoker Have you smoked in the past 12 months: No Number of Cigarettes Smoked Daily: 0 If you are a former smoker, when did you quit?: 2011 'Breaking Loose' booklet given: 04/05/16 Hx Alcohol Use: No Drug/Substance Use Hx: No Substance Use Type: None Hx Substance Use Treatment: No Review of Systems - Review of Systems Able to Perform ROS?: No (unresponsive) *Physical Exam - Physical Exam Comments: GENERAL: Profusely diaphoretic. Not responsive to sternal rub. HEENT: Normocephalic, atraumatic. PERRL, EOM intact. CARDIOVASCULAR: Normal S1, S2. Regular rate and rhythm. PULMONARY: No evidence of respiratory distress. Lungs clear to auscultation bilaterally. No wheezing, rales or rhonchi. ABDOMEN: Soft, non-distended, non-tender. EXTREMITIES: Normal ROM in all four extremities. No gross deformities. SKIN: Warm, diaphoretic. No rash NEUROLOGICAL: No focal neurological deficits. ED Treatment Course - LABORATORY CBC & Chemistry Diagram: 12/25/18 12:00 12/25/18 12:00 Medical Decision Making - Critical Care Time Total Critical Care Time (minutes): 30 Critical Care Statement: The care of this patient involved high complexity decision making to prevent further life threatening deterioration of the patient 's condition and/or to evaluate & treat vital organ system(s) failure or risk of failure. - Medical Decision Making 63 yo F w a hx of IDDM with retinopathy/neuropathy, [place] in [place], gastric ulcer, pancreatitis presents to the [facility] unresponsive shortly after she received insulin. Noted to be hypoglycemic and patient regained consciousness immediately after receiving IV D50. Vital Signs Temp Pulse Resp BP Pulse Ox 79 18 159/90 100 12/25/18 12:01 12/25/18 12:01 12/25/18 12:01 12/25/18 12:01 MDM: will obtain CT head, and labs then re-assess. CT head unremarkable. Patient noted to become hypoglycemic again despite amp of D50 - patient given another D50 - Patient also noted to by hypothermic at 93 degrees- Damian eric applied Contacting renal transplant team at [facility] - Dr. Varner at [facility] would like the patient transfered to [facility] and Joe- Cultured. - Will also consider covering patient w/ Abx empirically bc she is immunocompromised. - Vanc/Zosyn given Transfer to [facility] initiated through transfer center. Dr. Padilla will be the accepting attending physician from the ICU at [facility] - Transfer center says they will call us back when the patient has a bed available and set up transport. *DC/Admit/Observation/Transfer Diagnosis at time of Disposition: Hypothermia, Hypoglycemia, Altered mental status, Abdominal pain - Discharge Dispostion Disposition: TRANSFER ACUTE CARE/OTHER HOSP Condition at time of disposition: Guarded Decision to Admit order: No - Referrals Referrals: Janet Foy MD [Primary Care Provider] - - Patient Instructions - Post Discharge Activity
[2018-12-25 12:09] VITALS: BMI 25.4
[2018-12-25] MEDS ORDERED: DEXTROSE 50%-WATER - 25 GM/50 ML VIAL IVPUSH ONE ×2 (12:11→13:19)
[2018-12-25 12:17] LABS: BASO % 0.9 % (0-2.0); EOS % 1.8 % (0-4.5); HEMATOCRIT 44.2 % (32.4-45.2); HEMOGLOBIN 14.1 GM/dL (10.7-15.3); LYMPH % 31.6 % (8-40); MCH 26.2 pg (25.7-33.7); MCHC 31.9 g/dl (32.0-36.0); MONO % 6.8 % (3.8-10.2); NEUT % 58.9 % (42.8-82.8); PLATELET COUNT 288 K/MM3 (134-434); RBC 5.39 M/mm3 (3.60-5.2); RDW 15.9 % (11.6-15.6)
[2018-12-25 12:27] LABS: INR 1.06 (0.83-1.09); PROTHROMBIN TIME (PATIENT) 12.5 SEC (9.7-13.0)
--- NOTE | 2018-12-25 12:43 | CONSULT ---
Consult - text type - Consultation Consultation Note: Neurology History of Present Illness - History of Present Illness Initial Comments: 63 yo F w a hx of IDDM with retinopathy/neuropathy, [place] in 2001, gastric ulcer, pancreatitis presents to the [facility] unresponsive reportedly shortly after she received 23 units of insulin from her . When the patient arrived to the ER with EMS she was unresponsive and diffusely diaphoretic. She was unresponsive to sternal rub. Her fingerstick on route was noted to be 84 by EMS. When she arrived to the ER, rhianna schultz called, repeat fingerstick obtained at bedside was noted to be 34. IV access was immediately obtained and a push of D50 administered. Shortly after the patient woke up, re-gained consciousness, and was alert and oriented. She was seen by me in the ER and still waking up. She was still slow to respond and move extremities but improved compared to prior. Head CT completed, no evidence of acute pathology Past History - Past Medical History Anemia: No Asthma: Yes (CHRONIC BRONCHITIS) Cancer: No Cardiac Disorders: Yes (ASHD CT 2001, CARDIAC/ANGIOPLASTY) CVA: No COPD: No CHF: No Dementia: No Diabetes: Yes (WITH RETINOPATHY & NEUROPATHY) Dialysis: Yes GI Disorders: Yes (PANCREATITIS, GASTRIC ANTRUM ULCER,) Disorders: No HTN: Yes Hypercholesterolemia: No Liver Disease: No Seizures: No Thyroid Disease: No - Surgical History Orthopedic Surgery: No Recent Kidney transplant 04/2018, , Hysterectomy (leaving left ovary intact), Tonsillectomy. Laparoscopy, placement peritoneal dialysis catheter, lysis of adhesions (08/11/2017) by Randy Golden. Allergies/Adverse Reactions: Allergies Allergy/AdvReac Type Severity Reaction Status Date / Time ibuprofen [From Motrin] Allergy Swelling Verified 08/10/17 11:36 Home Medications: Ambulatory Orders Aspirin [ASA -] 81 mg PO DAILY 08/27/16 Cholecalciferol (Vitamin D3) [Vitamin D3] 1,000 unit PO DAILY 08/27/16 Amlodipine Besylate [Norvasc -] 5 mg PO DAILY 08/31/16 Insulin Aspart [Novolog Flexpen] 100 unit SQ PRN 03/22/17 Insulin Glargine,Hum.rec.anlog [Lantus Solostar PEN -] 14 units SQ DAILY Iron,Carb/Vit C/Vit B12/Folic [Iron 100 Plus Tablet] 1 each PO BID 03/23/17 Acetaminophen W/ Codeine #3 [Tylenol # 3 -] 1 tab PO Q6H PRN #20 tablet MDD 4 Vitamin E 400 unit PO DAILY 08/11/17 Active Medications Sodium Chloride (Normal Saline -) 1,000 mls @ 1,000 mls/hr IV ASDIR STA Stop: 12/25/18 12:59 Review of Systems - Review of Systems Able to Perform ROS?: No (unresponsiveness) *Physical Exam - Physical Exam Comments: Vital Signs Temperature Pulse Rate 79 12/25/18 12:01 Respiratory Rate 18 12/25/18 12:01 Blood Pressure 159/90 12/25/18 12:01 O2 Sat by Pulse Oximetry (%) 100 12/25/18 12:01 GENERAL: Profusely diaphoretic. Not responsive to sternal rub. HEENT: Normocephalic, atraumatic. PERRL, EOM intact. CARDIOVASCULAR: Normal S1, S2. Regular rate and rhythm. PULMONARY: No evidence of respiratory distress. Lungs clear to auscultation bilaterally. No wheezing, rales or rhonchi. ABDOMEN: Soft, non-distended, non-tender. EXTREMITIES: Normal ROM in all four extremities. No gross deformities. SKIN: Warm, diaphoretic. No rash NEUROLOGICAL: Awake, alert, Cn intact, moves extremities equally b/l, sensory intact to LT, gait deferred CBCD WBC 10.0 K/mm3 (4.0-10.0) 12/25/18 12:00 RBC 5.39 M/mm3 (3.60-5.2) H 12/25/18 12:00 Hgb 14.1 GM/dL (10.7-15.3) 12/25/18 12:00 Hct 44.2 % (32.4-45.2) D 12/25/18 12:00 MCV 82.0 fl (80-96) 12/25/18 12:00 MCHC 31.9 g/dl (32.0-36.0) L 12/25/18 12:00 RDW 15.9 % (11.6-15.6) H D 12/25/18 12:00 Plt Count 288 K/MM3 (134-434) 12/25/18 12:00 MPV 8.0 fl (7.5-11.1) 12/25/18 12:00 Plan/Assessment 63 yo F w a hx of IDDM with retinopathy/neuropathy, CT in 2001, gastric ulcer, pancreatitis presents to the [facility] unresponsive reportedly shortly after she received 23 units of insulin from her . When the patient arrived to the ER with EMS she was unresponsive and diffusely diaphoretic. She was unresponsive to sternal rub. Her fingerstick on route was noted to be 84 by EMS. When she arrived to the ER, rhianna schultz called, repeat fingerstick obtained at bedside was noted to be 34. IV access was immediately obtained and a push of D50 administered. Shortly after the patient woke up, re-gained consciousness, and was alert and oriented. She was seen by me in the ER and still waking up. She was still slow to respond and move extremities but improved compared to prior. Head CT completed, no evidence of acute pathology. Being admitted for MRI brain though ER mentioned she may require transfer due to recent Renal transplant. IF admitted, should have MRI brain, Carotid doppler, echo, lipid profile. Follow up finger sticks, maintain euglycemic range, check HgA1C. On ASA 81mg. DVT ppx.
--- NOTE | 2018-12-25 12:51 | PDOC ---
Documentation entered by Dylan Marc SCRIBE, acting as scribe for Victor Manuel Saxena MD. Victor Manuel Saxena MD: This documentation has been prepared by the Monico souza Daniel, SCRIBE, under my direction and personally reviewed by me in its entirety. I confirm that the documentation accurately reflects all work, treatment, procedures, and medical decision making performed by me. Attending Attestation - Resident Resident Name: Oneil Miller - ED Attending Attestation I have performed the following: I have examined & evaluated the patient, The case was reviewed & discussed with the resident, I agree w/resident's findings & plan, Exceptions are as noted - HPI HPI: 12/25/18 12:03 The patient is a 63 year old female with a past medical history of IDDM c/b ESRD s/p [facility] brought in today by EMS for evaluation of altered mental status. The patient's reports that the patient began to feel lightheaded, developed a headache, and said that she felt her blood sugar was low after taking her usual 23 units of lantus this morning. reports that she only had a smoothie this morning which is less than what she normally eats. He notes giving her 4 glucose tablets and a mini milky way which provided mild relief for a few minutes but then the patient became less responsive and slid off her bed without hitting her head. He called EMS approximately 20 minutes prior to arrival to the ER. As per EMS the patient's sugar was 84. Pt was unresponsive throughout with posturing per EMS. She was hypertensive to 170s/90s in the field, satting 100% on NRB. On arrival to the ED, the pt was unresponsive to all noxious stimuli, diaphoretic, with 3->2mm reactive pupils b/l. Her HR was in the 70s, O2 sat 100% on NRB. A repeat fingerstick was 34 and the patient was given an amp of D50 at which point she began to have purposeful movements. Pt shortly became awake, alert and was asking "how did i get here." Pt's notes that she gained alot of weight from steroids post transplant and has been actively trying to lose weight. Allergies: ibuprofen PCP: Janet Foy - Physicial Exam PE: 12/25/18 12:03 GENERAL: Awake, alert, and fully oriented, in no acute distress HEAD: No signs of trauma EYES: PERRLA, EOMI, sclera anicteric, conjunctiva clear ENT: Nares patent, oropharynx clear without exudates. Moist mucosa NECK: Normal ROM, supple, no lymphadenopathy, JVD, or masses LUNGS: Breath sounds equal, clear to auscultation bilaterally. No wheezes, and no crackles HEART: Regular rate and rhythm, normal S1 and S2, no murmurs, rubs or gallops ABDOMEN: Soft, nontender, normoactive bowel sounds. No guarding, no rebound. No masses. No TTP over renal transplant EXTREMITIES: Normal range of motion, no edema. No clubbing or cyanosis. No cords , erythema, or tenderness. WWP BACK: No midline spinal tenderness in cervical/thoracic/lumbar region NEUROLOGICAL: Normal speech, cranial nerves intact, 5/5 strength in all 4 extremities, normal sensation to light touch in all 4 extremities, normal cerebellar exam, normal tone, gait deferred SKIN: Warm, Dry, normal turgor, no rashes or lesions noted. - Critical Care Time Total Critical Care Time: 60 Critical Care Statement: The care of this patient involved high complexity decision making to prevent further life threatening deterioration of the patient 's condition and/or to evaluate & treat vital organ system(s) failure or risk of failure. - Medical Decision Making 12/25/18 12:48 63yo F hx IDDM, renal transplant presents to the ED with AMS likely 2/2 hypoglycemia. Etiology of hypoglycema likely 2/2 decreased PO, however will check labs, fide renal fx to see status of transplant Code stone was activated on arrival, and in light of reported headache by and posturing by EMS (which could be due to hypoglycemia), will proceed with stroke CTH anyway to r/o acute bleed, other intracranial pathology. Pt currently at baseline, talking to Anticipate possible [facility] given recent renal transplant. 12/25/18 13:23 Pt initially not allowing oral or rectal temp Now allowing rectal temp - found to be hypothermic to 93 Brielle hugger applied In light of hypethermia, fingerstick was checked, found to be 74 despite D50 1 hour ago I am concerned pt took the her short acting insulin this morning instead of her long acting Pt given another amp d50 and D5NS gtt started @125/hr Also on ddx is sepsis as pt is immunecompromised Will have low threshold to give empiric abx upon discussion with renal transplant High Climber 1.4 Renal transplant team at [facility] has been contacted through transfer center, they are in OR and will call us back 12/25/18 14:00 Case discussed with transplant surgeon Dr. Chandra Baseline alberene stone setter 1-1.4 so she is at her baseline today She is concerned that the pt is so hypethermic She would like to look for a SICU bed for pt and will call us back In the meantime, given hypothermia, we will freeman culture the pt and get a CXR Will start pt on vanc/zosyn empirically 12/25/18 14:33 [facility] but they do not have a bed Pt now complaining of left sided abdominal pain, she is very tender to LUQ and LLQ WIll obtain dry scan of CTAP as well as transplant doppler US of L kidney 12/25/18 16:23 Transplant doppler done, read pending Transport arrived, CTAP has not been done yet pt can be done at [facility] Pt also reports improvement in abd pain at this time She is clinically stable for transfer to [facility] SICU Heart Score/ECG Review #1 12/25/18 12:47 Twelve-lead EKG was performed and reviewed by me. Sinus rhythm, rate 66. Normal axis. No ST elevations. No T-wave inversions. +PVCs
[2018-12-25 12:53] LABS: ALBUMIN 3.5 g/dl (3.4-5.0); ALK PHOS 244 U/L (45-117); ANION GAP 9 MMOL/L (8-16); BILIRUBIN,TOTAL 0.4 mg/dL (0.2-1); BLOOD UREA NITROGEN 17.4 mg/dL (7-18); CALCIUM 8.6 mg/dL (8.5-10.1); CHLORIDE 105 mmol/L (98-107); CHOLESTEROL 131 mg/dL (50-200); CO2 25 mmol/L (21-32); CREATININE 1.4 mg/dL (0.55-1.3); GLUCOSE,RANDOM 262 mg/dL (74-106); HDL CHOLESTEROL 64 mg/dL (40-60); POTASSIUM 4.1 mmol/L (3.5-5.1); SGOT/AST 51 U/L (15-37); SGPT/ALT 19 U/L (13-61); SODIUM 139 mmol/L (136-145); TOT PROT 7.4 g/dl (6.4-8.2); TRIGLYCERIDES 76 mg/dL (0-150)
[2018-12-25] MEDS ORDERED: DEXTROSE 50%-WATER 25 GM/50 ML DISP.SYRIN ONE (13:24)
[2018-12-25] MEDS ORDERED: DEXTROSE 5%-NORMAL SALINE 1,000 ML IV SCH (13:30)
[2018-12-25] MEDS ORDERED: ACETAMINOPHEN 1000 MG/100 ML VIAL (NON FORMULARY) IVPB ONE (14:37)
[2018-12-25 14:45] LABS: EPI CELLS 0.3 /HPF (0-5/HPF); HYALINE CASTS 1 /lpf (0-8); PH,URINE 6.5 (5.0-8.0); URINE APPEARANCE CLEAR; URINE BACTERIA 11.7 /hpf (NEGATIVE); URINE BILIRUBIN NEGATIVE (NEGATIVE); URINE COLOR YELLOW; URINE GLUCOSE (UA) 1+ (NEGATIVE); URINE KETONE NEGATIVE (NEGATIVE); URINE LEUK ESTERASE NEGATIVE (NEGATIVE); URINE NITRITE NEGATIVE (NEGATIVE); URINE PROTEIN NEGATIVE (NEGATIVE); URINE RBC 2 /hpf (0-4); URINE UROBILINOGEN 0.2 mg/dL (0.2-1.0); URINE WBC 0 /hpf (0-5)
[2018-12-25] MEDS ORDERED: VANCOMYCIN 1,000 MG in DEXTROSE 5%-WATER - 250 ML IVPB ONE (14:49)
[2018-12-25] MEDS ORDERED: PIPERACILLIN/TAZOB 4.5 GM 4.5 GM in DEXTROSE 5%-WATER 100 ML IVPB ONE (14:50)
[2018-12-25] MEDS ORDERED: ACETAMINOPHEN INJECTION 100 ML IVPB ONE (15:09)
[2018-12-25] MEDS ORDERED: VANCOMYCIN 1 GRAM (PRE-DOCKED) 1,000 MG/250 ML BAG IVPB ONE (15:10)
[2018-12-25 16:09] VITALS: BP 102/63; PULSE 70; TEMP 96.6
--- NOTE | 2018-12-26 10:38 | EKG ---
Test Reason : Blood Pressure : / mmHG Vent. Rate : 066 BPM Atrial Rate : 066 BPM P-R Int : 148 ms QRS Dur : 098 ms QT Int : 490 ms P-R-T Axes : 074 031 055 degrees QTc Int : 513 ms SINUS RHYTHM WITH OCCASIONAL PREMATURE VENTRICULAR COMPLEXES OTHERWISE NORMAL ECG WHEN COMPARED WITH ECG OF 31-MAR-2018 01:35, PREMATURE VENTRICULAR COMPLEXES ARE NOW PRESENT T WAVE VARIATION Confirmed by ROSIE BERNARD, BREANNA ([id number]) on 12/26/2018 10:37:40 AM Referred By: Confirmed By:BREANNA VELEZ MD
== END 2018-12-25 16:46 | disposition short-term general hospital (02) ==
LOC: JER 11:58
PROC: 3E0337Z Introduction of Electrolytic and Water Balance Substance into Peripheral Vein, Percutaneous Approach (ICD-10-PCS; principal; 2018-12-25)
PROC: 3E03329 Introduction of Other Anti-infective into Peripheral Vein, Percutaneous Approach (ICD-10-PCS; 2018-12-25)
PROC: 3E033NZ Introduction of Analgesics, Hypnotics, Sedatives into Peripheral Vein, Percutaneous Approach (ICD-10-PCS; 2018-12-25)
PROC: 3E033GC Introduction of Other Therapeutic Substance into Peripheral Vein, Percutaneous Approach (ICD-10-PCS; 2018-12-25)
PROC: 3E033GC Introduction of Other Therapeutic Substance into Peripheral Vein, Percutaneous Approach (ICD-10-PCS; 2018-12-25)
DX: E13.649 Other specified diabetes mellitus with hypoglycemia without coma (principal); E11.40 Type 2 diabetes mellitus with diabetic neuropathy, unspecified; E11.21 Type 2 diabetes mellitus with diabetic nephropathy; E11.319 Type 2 diabetes mellitus with unspecified diabetic retinopathy without macular edema; Z79.4 Long term (current) use of insulin; I25.10 Atherosclerotic heart disease of native coronary artery without angina pectoris; T68.XXXA Hypothermia, initial encounter; Z98.61 Coronary angioplasty status; I13.11 Hypertensive heart and chronic kidney disease without heart failure, with stage 5 chronic kidney disease, or end stage renal disease; N18.6 End stage renal disease; Z99.2 Dependence on renal dialysis; Z94.0 Kidney transplant status; K86.1 Other chronic pancreatitis
CPT/HCPCS: 36415; 70450-TC; 76776-TC; 80053; 80197; 81003; 82465; 82550; 82553; 82962; 83718; 83721; 84478; 84484; 85025; 85610; 86850; 86900; 86901; 87040; 87086; 93005; 93010; 99285-25; J0131; J7030

== ENCOUNTER 2022-08-28 04:25 | Day surgery (SDC) | payer BC, OTHER ==
[2022-08-26 08:28] VITALS: BMI 21.1
[2022-08-28] MEDS ORDERED: KETAMINE HCL 500 MG/10 ML VIAL ONE (07:16)
[2022-08-28 09:13] VITALS: TEMP 98.2
[2022-08-28 10:12] VITALS: BP 116/81; PULSE 85; RESP 18
== END 2022-08-28 10:20 | disposition home or self-care (01) ==
LOC: JASU-ENDO 04:25
PROVIDERS: ATTEND Internal Medicine Gastroenterology
PROC: 0DBL8ZX Excision of Transverse Colon, Via Natural or Artificial Opening Endoscopic, Diagnostic (ICD-10-PCS; 2022-08-28)
PROC: 0DBN8ZX Excision of Sigmoid Colon, Via Natural or Artificial Opening Endoscopic, Diagnostic (ICD-10-PCS; 2022-08-28)
PROC: 0DBP8ZX Excision of Rectum, Via Natural or Artificial Opening Endoscopic, Diagnostic (ICD-10-PCS; 2022-08-28)
PROC: 0DBP8ZX Excision of Rectum, Via Natural or Artificial Opening Endoscopic, Diagnostic (ICD-10-PCS; 2022-08-28)
PROC: 0DBL8ZX Excision of Transverse Colon, Via Natural or Artificial Opening Endoscopic, Diagnostic (ICD-10-PCS; 2022-08-28)
PROC: 0DBN8ZX Excision of Sigmoid Colon, Via Natural or Artificial Opening Endoscopic, Diagnostic (ICD-10-PCS; 2022-08-28)
PROC: 0DBK8ZX Excision of Ascending Colon, Via Natural or Artificial Opening Endoscopic, Diagnostic (ICD-10-PCS; principal; 2022-08-28 08:00)
DX: Z12.11 Encounter for screening for malignant neoplasm of colon (principal); D12.3 Benign neoplasm of transverse colon; D12.5 Benign neoplasm of sigmoid colon; D12.2 Benign neoplasm of ascending colon; D12.8 Benign neoplasm of rectum; K57.30 Diverticulosis of large intestine without perforation or abscess without bleeding; I10 Essential (primary) hypertension; E11.9 Type 2 diabetes mellitus without complications; Z79.4 Long term (current) use of insulin
CPT/HCPCS: 82962; 88305-TC

== ENCOUNTER 2023-04-23 16:06 | Inpatient (IN) | payer OTHER, BC ==
[2023-04-23] MEDS ORDERED: ACETAMINOPHEN 1000 MG/100 ML BAG IVPB ONE (16:38)
[2023-04-23] MEDS ORDERED: ACETAMINOPHEN INJECTION 100 ML IVPB ONE (17:20)
[2023-04-23] MEDS ORDERED: SODIUM CHLORIDE 0.9% 500 ML INFUS.BAG IV ONE (17:35)
[2023-04-23] MEDS ORDERED: ONDANSETRON 4 MG/2 ML VIAL IVPUSH ONE (17:35)
[2023-04-23] MEDS ORDERED: ONDANSETRON 4 MG/2 ML VIAL ONE (17:39)
[2023-04-23 17:45] LABS: HEMATOCRIT 34.8 % (32.4-45.2); HEMOGLOBIN 11.3 GM/dL (10.7-15.3); MCH 25.5 pg (25.7-33.7); MCHC 32.4 g/dl (32.0-36.0); MEAN CELL VOLUME 78.6 fl (80-96); MEAN PLT VOLUME 7.7 fl (7.5-11.1); PLATELET COUNT 194 10^3/uL (134-434); RBC 4.42 M/mm3 (3.60-5.2); RDW 16.5 % (11.6-15.6); WHITE BLOOD COUNT 13.8 K/mm3 (4.0-10.0)
[2023-04-23] MEDS ORDERED: PIPERACILLIN/TAZOB 4.5 GM 4.5 GM in DEXTROSE 5%-WATER 100 ML IVPB ONE (17:56)
[2023-04-23 18:03] LABS: CHLORIDE 94 mmol/L (98-107); POTASSIUM 3.8 mmol/L (3.5-5.1); SODIUM 132 mmol/L (136-145)
[2023-04-23 18:05] LABS: ALBUMIN 4.2 g/dl (3.4-5.0); CALCIUM 8.5 mg/dL (8.5-10.1)
[2023-04-23 18:06] LABS: ANION GAP 17 mmol/L (4-13); BLOOD UREA NITROGEN 23.7 mg/dL (7-18); CO2 21 mmol/L (21-32)
[2023-04-23] MEDS ORDERED: PIPERACILLIN/TAZOB 4.5 GM 4.5 GM/100 ML BAG IVPB ONE (18:07)
[2023-04-23 18:09] LABS: CREATININE 1.8 mg/dL (0.55-1.3); SGOT/AST 24 U/L (15-37); SGPT/ALT 15 U/L (13-61)
[2023-04-23 18:10] LABS: TOT PROT 7.3 g/dl (6.4-8.2)
[2023-04-23 18:12] LABS: ALK PHOS 69 U/L (45-117); INR 1.09 (0.83-1.09); PROTHROMBIN TIME (PATIENT) 12.6 SEC (9.7-13.0)
[2023-04-23 18:14] LABS: ACTIVATED PTT 26.7 SECONDS (25.2-36.5)
[2023-04-23 18:25] LABS: GLUCOSE,RANDOM 671 mg/dL (74-106)
[2023-04-23] MEDS ORDERED: INSULIN (NOVOLOG) ASPART 100 UNITS/ML 10ML VIAL SQ ONE ×2 (18:29→23:35)
[2023-04-23 18:32] LABS: ANISOCYTOSIS 0; MACROCYTOSIS 0; PLATELET ESTIMATE NORMAL
[2023-04-23] MEDS ORDERED: HYDROCHLOROTHIAZIDE 50 MG TABLET PO ONE (18:36)
[2023-04-23] MEDS ORDERED: HYDROCHLOROTHIAZIDE 25 MG TABLET (FP) ONE (19:02)
[2023-04-23] MEDS ORDERED: INSULIN (NOVOLOG) ASPART 100 UNITS/ML 10ML VIAL ONE (19:03)
[2023-04-23] MEDS ORDERED: METOPROLOL TARTRATE 50 MG TABLET (FP) ONE (20:58)
[2023-04-23] MEDS ORDERED: NIFEdipine E.R 60 MG TABLET PO ONE ×2 (20:59→22:00)
[2023-04-23 21:18] LABS: VENOUS BASE EXCESS -5.9 mmol/L (-2-2); VENOUS O2 SATURATION 97.8 % (70-80); VENOUS PCO2 42.3 mmHg (38-52); VENOUS PH 7.297 (7.310-7.410)
[2023-04-23 21:46] LABS: CHLORIDE 99 mmol/L (98-107); POTASSIUM 3.1 mmol/L (3.5-5.1); SODIUM 136 mmol/L (136-145)
[2023-04-23 21:47] LABS: CALCIUM 7.6 mg/dL (8.5-10.1)
[2023-04-23 21:48] LABS: ANION GAP 11 mmol/L (4-13); BLOOD UREA NITROGEN 25.7 mg/dL (7-18); CO2 26 mmol/L (21-32)
[2023-04-23 21:49] LABS: EPI CELLS 4 /uL (0-25.1); HYALINE CASTS 1 /uL (0-3.1); PH,URINE 5.5 (5.0-8.0); URINE APPEARANCE CLEAR; URINE BACTERIA 2 /uL (0-1359); URINE BILIRUBIN NEGATIVE (NEGATIVE); URINE COLOR YELLOW; URINE GLUCOSE (UA) 3+ (NEGATIVE); URINE KETONE 1+ (NEGATIVE); URINE LEUK ESTERASE NEGATIVE (NEGATIVE); URINE NITRITE NEGATIVE (NEGATIVE); URINE PROTEIN 1+ (NEGATIVE); URINE RBC 12 /uL (0-23.9); URINE UROBILINOGEN 0.2 mg/dL (0.2-1.0); URINE WBC 2 /uL (0-25.8)
[2023-04-23 21:51] LABS: CREATININE 1.8 mg/dL (0.55-1.3)
[2023-04-23] MEDS ORDERED: TACROLIMUS ANHYDROUS 1 MG CAPSULE PO ONE (22:00)
[2023-04-23] MEDS ORDERED: CALCITRIOL 0.25 MCG CAPSULE (FP) PO ONE (22:00)
[2023-04-23] MEDS ORDERED: METOPROLOL TARTRATE 50 MG TABLET (FP) PO ONE (22:00)
[2023-04-23] MEDS ORDERED: MYCOPHENOLATE MOFETIL 500 MG TABLET PO ONE (22:00)
[2023-04-23 22:28] LABS: GLUCOSE,RANDOM 476 mg/dL (74-106)
[2023-04-23] MEDS ORDERED: POTASSIUM CHLORIDE ORAL LIQUID 20 MEQ/15 ML PO ONE (22:30)
[2023-04-24] MEDS ORDERED: POTASSIUM CHLORIDE ORAL LIQUID 20 MEQ/15 ML ONE (00:26)
[2023-04-24] MEDS ORDERED: KCL 10 MEQ IVPB 10 MEQ/100 ML INFUS.BAG IVPB ONE ×3 (00:27→04:00)
[2023-04-24] MEDS: KCL 10 MEQ IVPB 10 MEQ/100 ML INFUS.BAG IVPB SCH ×5 (00:40→13:38)
[2023-04-24] MEDS ORDERED: SODIUM CHLORIDE 1,000 ML IV SCH (02:00)
[2023-04-24] MEDS: MYCOPHENOLATE MOFETIL 500 MG TABLET PO SCH ×3 (03:16→23:37)
[2023-04-24] MEDS: TACROLIMUS ANHYDROUS 1 MG CAPSULE PO SCH ×3 (03:16→23:37)
[2023-04-24] MEDS ORDERED: ACETAMINOPHEN 325 MG TABLET (FP) PO PRN (03:51)
[2023-04-24] MEDS ORDERED: TRIMETHOBENZAMIDE HCL 200MG/2ML INJ IM ONE ×2 (06:53→07:39)
[2023-04-24 08:20] LABS: BASO % 0.3 % (0-2.0); HEMOGLOBIN 10.9 GM/dL (10.7-15.3); LYMPH % 4.9 % (8-40); MCH 24.9 pg (25.7-33.7); MCHC 31.2 g/dl (32.0-36.0); MEAN CELL VOLUME 79.6 fl (80-96); MEAN PLT VOLUME 7.7 fl (7.5-11.1); NEUT % 88.8 % (42.8-82.8); PLATELET COUNT 216 10^3/uL (134-434); RDW 16.9 % (11.6-15.6); WHITE BLOOD COUNT 12.9 K/mm3 (4.0-10.0)
[2023-04-24 08:21] LABS: POTASSIUM 4.6 mmol/L (3.5-5.1)
[2023-04-24 08:24] LABS: CALCIUM 8.2 mg/dL (8.5-10.1)
[2023-04-24 08:25] LABS: ALBUMIN 3.9 g/dl (3.4-5.0); BLOOD UREA NITROGEN 24.9 mg/dL (7-18); MAGNESIUM 2.4 mg/dL (1.8-2.4)
[2023-04-24 08:28] LABS: CREATININE 1.7 mg/dL (0.55-1.3); PHOSPHOROUS 3.8 mg/dL (2.5-4.9)
[2023-04-24 08:29] LABS: BILIRUBIN,TOTAL 0.8 mg/dL (0.2-1)
[2023-04-24 08:30] LABS: TOT PROT 6.9 g/dl (6.4-8.2)
[2023-04-24] MEDS ORDERED: FUROSEMIDE 40 MG TABLET (FP) PO SCH (10:00)
[2023-04-24] MEDS ORDERED: CALCITRIOL 0.25 MCG CAPSULE (FP) PO SCH (10:00)
[2023-04-24] MEDS ORDERED: ACETAMINOPHEN INJECTION 100 ML IVPB ONE (12:28)
[2023-04-24] MEDS: ACETAMINOPHEN 1000 MG/100 ML BAG IVPB PRN ×2 (12:35→18:33)
[2023-04-24] MEDS: hydrALAZINE HCL 50 MG TABLET (FP) PO SCH ×2 (12:37→23:36)
[2023-04-24] MEDS: METOPROLOL TARTRATE 50 MG TABLET (FP) PO SCH ×2 (12:39→23:37)
[2023-04-24] MEDS: NIFEdipine E.R 60 MG TABLET PO SCH ×2 (12:40→23:37)
[2023-04-24] MEDS: HYDROCHLOROTHIAZIDE 50 MG TABLET PO SCH ×2 (13:37→14:21)
[2023-04-24] MEDS: HEPARIN NA (PORCINE) 5,000 UNITS/ML 1ML VIAL SQ SCH ×3 (13:37→22:44)
[2023-04-24] MEDS: INSULIN SLIDING SCALE (NOVOLOG) 1 VIAL SQ SCH ×3 (13:38→16:47)
[2023-04-24 15:16] VITALS: BMI 18.7
[2023-04-24] MEDS: ONDANSETRON 4 MG/2 ML VIAL IVPB PRN ×2 (15:33→22:44)
[2023-04-24 18:45] LABS: HEMATOCRIT 34.9 % (32.4-45.2); HEMOGLOBIN 11.1 GM/dL (10.7-15.3); MCH 25.7 pg (25.7-33.7); MCHC 31.9 g/dl (32.0-36.0); MEAN CELL VOLUME 80.5 fl (80-96); MEAN PLT VOLUME 7.8 fl (7.5-11.1); PLATELET COUNT 195 10^3/uL (134-434); RBC 4.33 M/mm3 (3.60-5.2); RDW 17.4 % (11.6-15.6); WHITE BLOOD COUNT 17.7 K/mm3 (4.0-10.0)
[2023-04-24 19:05] LABS: CHLORIDE 98 mmol/L (98-107); POTASSIUM 4.2 mmol/L (3.5-5.1); SODIUM 136 mmol/L (136-145)
[2023-04-24 19:07] LABS: ALBUMIN 3.9 g/dl (3.4-5.0); ANION GAP 25 mmol/L (4-13); BLOOD UREA NITROGEN 43.5 mg/dL (7-18); CO2 13 mmol/L (21-32)
[2023-04-24 19:10] LABS: CREATININE 2.3 mg/dL (0.55-1.3); SGOT/AST 25 U/L (15-37); SGPT/ALT 21 U/L (13-61)
[2023-04-24 19:12] LABS: BILIRUBIN,TOTAL 0.5 mg/dL (0.2-1); TOT PROT 7.1 g/dl (6.4-8.2)
[2023-04-24 19:13] LABS: ALK PHOS 73 U/L (45-117)
[2023-04-24 19:16] LABS: GLUCOSE,RANDOM 475 mg/dL (74-106)
[2023-04-24 19:45] LABS: ANISOCYTOSIS 1+; MACROCYTOSIS 1+
[2023-04-24 20:01] LABS: ALLENS TEST POSITIVE; ARTERIAL BLD GAS O2 SATURATION 91.4 % (95-98); ARTERIAL BLOOD GAS BASE EXCESS -17.2 mmol/L (-2-2); ARTERIAL BLOOD GAS PO2 80.3 mmHg (80-100)
[2023-04-24 20:03] LABS: ARTERIAL BLOOD GAS pH 7.105 (7.350-7.450)
[2023-04-24] MEDS ORDERED: DEXTROSE 50%-WATER 25 GM/50 ML DISP.SYRIN IVPUSH PRN (20:20)
[2023-04-24] MEDS ORDERED: SODIUM CHLORIDE 1,000 ML IV STA (20:45)
[2023-04-24] MEDS ORDERED: INSULIN REGULAR HUMAN 100 UNITS/ML *VIAL* (FOR IVP) IVPUSH ONE (21:00)
[2023-04-24] MEDS ORDERED: PIPERACILLIN/TAZOB 2.25 GM 2.25 GM in DEXTROSE 5%-WATER - 50 ML IVPB SCH (21:00)
[2023-04-24] MEDS ORDERED: INSULIN REGULAR 100 UNITS in SODIUM CHLORIDE 99 ML IVPB SCH (21:00)
[2023-04-24] MEDS ORDERED: POTASSIUM CHLORIDE 40 MEQ in SODIUM CHLORIDE 1,000 ML IV SCH (21:30)
[2023-04-24] MEDS ORDERED: CALCITRIOL 0.25 MCG CAPSULE (FP) PO ONE (22:00)
[2023-04-24] MEDS ORDERED: PATIENT'S OWN MEDICATION (NON-FORMULARY) (Nifedipine [Nifedipine Er] 90 MG Tablet.Er) PO SCH (22:00)
[2023-04-24] MEDS ORDERED: NIFEdipine E.R 60 MG TABLET PO ONE (22:00)
[2023-04-24] MEDS: MUPIROCIN 2% TOPICAL OINTMENT FOR DECOLONIZATION NS SCH (22:36)
[2023-04-24] MEDS: CHLORHEXIDINE GLUCONATE 4% CLEANSER FOR DECOLONIZATION TP SCH (22:37)
[2023-04-24] MEDS ORDERED: morphine SULFATE 4 MG/ML VIAL ONE (22:48)
[2023-04-24] MEDS: morphine SULFATE 4 MG/ML VIAL IVPUSH PRN (22:58)
[2023-04-24 23:59] LABS: ANION GAP 24 mmol/L (4-13); BLOOD UREA NITROGEN 49.8 mg/dL (7-18); CALCIUM 7.6 mg/dL (8.5-10.1); CHLORIDE 97 mmol/L (98-107); CO2 12 mmol/L (21-32); CREATININE 2.5 mg/dL (0.55-1.3); POTASSIUM 4.5 mmol/L (3.5-5.1); SODIUM 133 mmol/L (136-145)
[2023-04-25 00:02] LABS: GLUCOSE,RANDOM 537 mg/dL (74-106)
[2023-04-25] MEDS ORDERED: DEXTROSE 50%-WATER 25 GM/50 ML DISP.SYRIN IVPUSH PRN (00:51)
[2023-04-25] MEDS ORDERED: INSULIN REGULAR 100 UNITS in SODIUM CHLORIDE 99 ML IVPB SCH (00:51)
[2023-04-25] MEDS ORDERED: ACETAMINOPHEN 1000 MG/100 ML BAG IVPB PRN (00:51)
[2023-04-25] MEDS: PIPERACILLIN/TAZOB 2.25 GM 2.25 GM in DEXTROSE 5%-WATER - 50 ML IVPB SCH ×4 (02:33→21:30)
[2023-04-25] MEDS: ONDANSETRON 4 MG/2 ML VIAL IVPB PRN ×2 (02:55→14:46)
[2023-04-25] MEDS: morphine SULFATE 4 MG/ML VIAL IVPUSH PRN ×4 (02:55→23:05)
[2023-04-25 03:51] LABS: POTASSIUM 3.9 mmol/L (3.5-5.1)
[2023-04-25 03:52] LABS: CALCIUM 7.4 mg/dL (8.5-10.1)
[2023-04-25 03:53] LABS: BLOOD UREA NITROGEN 53.5 mg/dL (7-18)
[2023-04-25 03:56] LABS: CREATININE 2.8 mg/dL (0.55-1.3)
[2023-04-25] MEDS: HEPARIN NA (PORCINE) 5,000 UNITS/ML 1ML VIAL SQ SCH ×3 (05:10→21:31)
[2023-04-25] MEDS ORDERED: POTASSIUM CHLORIDE 40 MEQ in SODIUM CHLORIDE 1,000 ML IV SCH (05:30)
[2023-04-25] MEDS ORDERED: SODIUM CHLORIDE 1,000 ML IV STA (05:42)
[2023-04-25] MEDS: INSULIN (LEVEMIR) 100 UNITS/ML UNITS SQ SCH (06:24)
[2023-04-25] MEDS: PANTOPRAZOLE 40 MG TABLET PO SCH (06:43)
[2023-04-25] MEDS: INSULIN SLIDING SCALE (NOVOLOG) 1 VIAL SQ SCH ×4 (06:44→21:42)
[2023-04-25] MEDS ORDERED: INSULIN (NOVOLOG) ASPART 100 UNITS/ML 10ML VIAL ONE ×2 (06:50→21:42)
[2023-04-25 08:11] LABS: CALCIUM 7.4 mg/dL (8.5-10.1)
[2023-04-25 08:12] LABS: BLOOD UREA NITROGEN 51.5 mg/dL (7-18); MAGNESIUM 2.2 mg/dL (1.8-2.4)
[2023-04-25 08:14] LABS: LIPASE 50 U/L (73-393)
[2023-04-25 08:15] LABS: AMYLASE 20 U/L (25-115); CREATININE 2.8 mg/dL (0.55-1.3); PHOSPHOROUS 4.4 mg/dL (2.5-4.9)
[2023-04-25] MEDS: LACTATED RINGERS SOLUTION 1,000 ML/1,000 ML INFUS.BAG IV SCH (09:40)
[2023-04-25] MEDS: hydrALAZINE HCL 50 MG TABLET (FP) PO SCH ×2 (09:56→21:31)
[2023-04-25] MEDS: CALCITRIOL 0.25 MCG CAPSULE (FP) PO SCH (09:56)
[2023-04-25] MEDS: NIFEdipine E.R 60 MG TABLET PO SCH ×2 (09:56→21:31)
[2023-04-25] MEDS: METOPROLOL TARTRATE 50 MG TABLET (FP) PO SCH ×2 (09:56→21:30)
[2023-04-25] MEDS: MUPIROCIN 2% TOPICAL OINTMENT FOR DECOLONIZATION NS SCH ×2 (09:58→21:31)
[2023-04-25] MEDS ORDERED: MYCOPHENOLATE MOFETIL 500 MG TABLET PO SCH (10:00)
[2023-04-25] MEDS ORDERED: TACROLIMUS ANHYDROUS 1 MG CAPSULE PO SCH (10:00)
[2023-04-25] MEDS ORDERED: DEXTROSE 50%-WATER - 25 GM/50 ML VIAL IVPUSH ONE (15:54)
[2023-04-25] MEDS ORDERED: DEXTROSE 50%-WATER 25 GM/50 ML DISP.SYRIN ONE (15:56)
[2023-04-25] MEDS: CHLORHEXIDINE GLUCONATE 4% CLEANSER FOR DECOLONIZATION TP SCH (21:32)
[2023-04-25] MEDS: TACROLIMUS 0.5 MG CAPSULE PO SCH (22:04)
[2023-04-25 23:47] LABS: CALCIUM 7.8 mg/dL (8.5-10.1)
[2023-04-25 23:48] LABS: BLOOD UREA NITROGEN 42.5 mg/dL (7-18)
[2023-04-26] MEDS: PIPERACILLIN/TAZOB 2.25 GM 2.25 GM in DEXTROSE 5%-WATER - 50 ML IVPB SCH ×4 (02:28→21:01)
[2023-04-26] MEDS: LACTATED RINGERS SOLUTION 1,000 ML/1,000 ML INFUS.BAG IV SCH ×2 (03:08→09:33)
[2023-04-26] MEDS: HEPARIN NA (PORCINE) 5,000 UNITS/ML 1ML VIAL SQ SCH ×3 (06:09→21:05)
[2023-04-26] MEDS: INSULIN (LEVEMIR) 100 UNITS/ML UNITS SQ SCH ×2 (06:11→21:25)
[2023-04-26] MEDS: PANTOPRAZOLE 40 MG TABLET PO SCH (06:13)
[2023-04-26] MEDS: INSULIN SLIDING SCALE (NOVOLOG) 1 VIAL SQ SCH ×4 (06:34→21:26)
[2023-04-26 08:18] LABS: HEMATOCRIT 30.7 % (32.4-45.2); HEMOGLOBIN 10.2 GM/dL (10.7-15.3); MCH 26.1 pg (25.7-33.7); MCHC 33.2 g/dl (32.0-36.0); MEAN CELL VOLUME 78.6 fl (80-96); MEAN PLT VOLUME 7.3 fl (7.5-11.1); PLATELET COUNT 143 10^3/uL (134-434); RBC 3.91 M/mm3 (3.60-5.2); WHITE BLOOD COUNT 11.8 K/mm3 (4.0-10.0)
[2023-04-26 08:31] LABS: POTASSIUM 3.9 mmol/L (3.5-5.1)
[2023-04-26 08:33] LABS: CALCIUM 7.6 mg/dL (8.5-10.1)
[2023-04-26 08:34] LABS: ALBUMIN 3.5 g/dl (3.4-5.0); BLOOD UREA NITROGEN 39.7 mg/dL (7-18); MAGNESIUM 1.9 mg/dL (1.8-2.4)
[2023-04-26 08:37] LABS: CREATININE 1.8 mg/dL (0.55-1.3); PHOSPHOROUS 2.4 mg/dL (2.5-4.9)
[2023-04-26 08:38] LABS: TOT PROT 6.7 g/dl (6.4-8.2)
[2023-04-26 08:39] LABS: BILIRUBIN,TOTAL 0.7 mg/dL (0.2-1)
[2023-04-26 09:10] LABS: ANISOCYTOSIS 1+; MACROCYTOSIS 0
[2023-04-26] MEDS: NIFEdipine E.R 60 MG TABLET PO SCH ×2 (09:35→21:07)
[2023-04-26] MEDS: METOPROLOL TARTRATE 50 MG TABLET (FP) PO SCH ×2 (09:35→21:07)
[2023-04-26] MEDS: hydrALAZINE HCL 50 MG TABLET (FP) PO SCH ×2 (09:35→21:04)
[2023-04-26] MEDS: CALCITRIOL 0.25 MCG CAPSULE (FP) PO SCH (09:35)
[2023-04-26] MEDS: TACROLIMUS 0.5 MG CAPSULE PO SCH (09:36)
[2023-04-26] MEDS: morphine SULFATE 4 MG/ML VIAL IVPUSH PRN (09:54)
[2023-04-26] MEDS: MUPIROCIN 2% TOPICAL OINTMENT FOR DECOLONIZATION NS SCH ×2 (09:55→21:05)
[2023-04-26] MEDS ORDERED: FUROSEMIDE 40 MG/4 ML INJECTABLE VIAL IVPUSH ONE (18:35)
[2023-04-26] MEDS: ALBUTEROL SO4 2.5/IPRATROPIUM 0.5 INH SOL 3 ML VIAL.NEB. NEB PRN (19:59)
[2023-04-26] MEDS: TACROLIMUS ANHYDROUS 1 MG CAPSULE PO SCH (21:07)
[2023-04-26] MEDS: CHLORHEXIDINE GLUCONATE 4% CLEANSER FOR DECOLONIZATION TP SCH (21:07)
[2023-04-26] MEDS ORDERED: INSULIN (LEVEMIR) 100 UNITS/ML UNITS SQ SCH (22:00)
[2023-04-27] MEDS: PIPERACILLIN/TAZOB 2.25 GM 2.25 GM in DEXTROSE 5%-WATER - 50 ML IVPB SCH ×4 (02:06→21:33)
[2023-04-27] MEDS: HEPARIN NA (PORCINE) 5,000 UNITS/ML 1ML VIAL SQ SCH ×3 (05:34→22:16)
[2023-04-27] MEDS ORDERED: DEXTROSE 50%-WATER 25 GM/50 ML DISP.SYRIN ONE (05:41)
[2023-04-27] MEDS: INSULIN SLIDING SCALE (NOVOLOG) 1 VIAL SQ SCH ×4 (06:19→21:46)
[2023-04-27] MEDS: INSULIN (LEVEMIR) 100 UNITS/ML UNITS SQ SCH ×2 (06:19→21:45)
[2023-04-27] MEDS: PANTOPRAZOLE 40 MG TABLET PO SCH (06:19)
[2023-04-27] MEDS ORDERED: DEXTROSE 50%-WATER - 25 GM/50 ML VIAL IVPUSH ONE (06:24)
[2023-04-27 06:36] LABS: POTASSIUM 3.2 mmol/L (3.5-5.1)
[2023-04-27 06:40] LABS: CALCIUM 7.6 mg/dL (8.5-10.1)
[2023-04-27 06:41] LABS: BLOOD UREA NITROGEN 26.9 mg/dL (7-18)
[2023-04-27 06:44] LABS: CREATININE 1.2 mg/dL (0.55-1.3)
[2023-04-27 06:45] LABS: BILIRUBIN,TOTAL 1.1 mg/dL (0.2-1); TOT PROT 5.8 g/dl (6.4-8.2)
[2023-04-27] MEDS: NIFEdipine E.R 60 MG TABLET PO SCH ×2 (09:28→21:45)
[2023-04-27] MEDS: CALCITRIOL 0.25 MCG CAPSULE (FP) PO SCH (09:28)
[2023-04-27] MEDS: TACROLIMUS ANHYDROUS 1 MG CAPSULE PO SCH ×2 (09:31→22:15)
[2023-04-27] MEDS: KCL 10 MEQ IVPB 10 MEQ/100 ML INFUS.BAG IVPB SCH ×3 (09:31→14:07)
[2023-04-27] MEDS: hydrALAZINE HCL 50 MG TABLET (FP) PO SCH ×2 (09:31→21:45)
[2023-04-27] MEDS: MUPIROCIN 2% TOPICAL OINTMENT FOR DECOLONIZATION NS SCH ×2 (09:32→21:47)
[2023-04-27] MEDS: METOPROLOL TARTRATE 50 MG TABLET (FP) PO SCH ×2 (09:32→21:45)
[2023-04-27] MEDS ORDERED: FUROSEMIDE 40 MG/4 ML INJECTABLE VIAL IVPUSH ONE (10:41)
[2023-04-27] MEDS ORDERED: POTASSIUM CHLORIDE TABS 20 MEQ TABLET.ER (FP) PO ONE (11:58)
[2023-04-27] MEDS ORDERED: PATIENT'S OWN MEDICATION (NON-FORMULARY) (Insulin Aspart [Novolog Flexpen] 100 UNIT/ML Ins SQ SCH (12:00)
[2023-04-27] MEDS: FUROSEMIDE 40 MG/4 ML INJECTABLE VIAL IVPUSH SCH (14:06)
[2023-04-27] MEDS: ALBUTEROL SO4 2.5/IPRATROPIUM 0.5 INH SOL 3 ML VIAL.NEB. NEB PRN (14:07)
[2023-04-27] MEDS: ASPIRIN 81 MG CHEWABLE TABLETS PO SCH (14:18)
[2023-04-27] MEDS: CHLORHEXIDINE GLUCONATE 4% CLEANSER FOR DECOLONIZATION TP SCH (21:46)
[2023-04-28] MEDS: ACETAMINOPHEN 325 MG TABLET (FP) PO PRN ×2 (00:59→10:24)
[2023-04-28] MEDS: PIPERACILLIN/TAZOB 2.25 GM 2.25 GM in DEXTROSE 5%-WATER - 50 ML IVPB SCH ×4 (03:36→20:39)
[2023-04-28] MEDS: HEPARIN NA (PORCINE) 5,000 UNITS/ML 1ML VIAL SQ SCH ×3 (06:08→21:43)
[2023-04-28] MEDS: INSULIN (LEVEMIR) 100 UNITS/ML UNITS SQ SCH ×2 (06:08→21:44)
[2023-04-28] MEDS: INSULIN SLIDING SCALE (NOVOLOG) 1 VIAL SQ SCH ×3 (06:09→18:00)
[2023-04-28] MEDS: PANTOPRAZOLE 40 MG TABLET PO SCH (06:09)
[2023-04-28 07:08] LABS: POTASSIUM 3.4 mmol/L (3.5-5.1)
[2023-04-28 07:12] LABS: ALBUMIN 3.1 g/dl (3.4-5.0); BLOOD UREA NITROGEN 17.3 mg/dL (7-18)
[2023-04-28 07:17] LABS: BILIRUBIN,TOTAL 0.9 mg/dL (0.2-1); TOT PROT 6.2 g/dl (6.4-8.2)
[2023-04-28] MEDS: hydrALAZINE HCL 50 MG TABLET (FP) PO SCH ×2 (09:54→21:44)
[2023-04-28] MEDS: NIFEdipine E.R 60 MG TABLET PO SCH ×2 (09:54→21:44)
[2023-04-28] MEDS: METOPROLOL TARTRATE 50 MG TABLET (FP) PO SCH ×2 (09:54→21:44)
[2023-04-28] MEDS: MUPIROCIN 2% TOPICAL OINTMENT FOR DECOLONIZATION NS SCH ×2 (09:55→21:44)
[2023-04-28] MEDS: FUROSEMIDE 40 MG/4 ML INJECTABLE VIAL IVPUSH SCH (09:55)
[2023-04-28] MEDS: TACROLIMUS ANHYDROUS 1 MG CAPSULE PO SCH ×2 (09:55→21:44)
[2023-04-28] MEDS: ASPIRIN 81 MG CHEWABLE TABLETS PO SCH (09:56)
[2023-04-28] MEDS: CALCITRIOL 0.25 MCG CAPSULE (FP) PO SCH (09:57)
[2023-04-28 11:58] LABS: HEMATOCRIT 31.7 % (32.4-45.2); HEMOGLOBIN 10.3 GM/dL (10.7-15.3); MCH 25.2 pg (25.7-33.7); MCHC 32.7 g/dl (32.0-36.0); MEAN CELL VOLUME 77.2 fl (80-96); MEAN PLT VOLUME 7.7 fl (7.5-11.1); PLATELET COUNT 135 10^3/uL (134-434); RDW 16.5 % (11.6-15.6); WHITE BLOOD COUNT 5.3 K/mm3 (4.0-10.0)
[2023-04-28] MEDS ORDERED: POTASSIUM CHLORIDE ORAL LIQUID 20 MEQ/15 ML PO ONE (12:55)
[2023-04-28] MEDS: DIPHENOXYLATE 2.5/ATROPINE.025 1 COMBO TABLET PO PRN ×2 (12:59→20:39)
[2023-04-28] MEDS ORDERED: traMADol HCL 50 MG TABLET PO ONE (13:50)
[2023-04-28] MEDS ORDERED: INSULIN SLIDING SCALE (NOVOLOG) 1 VIAL SQ SCH (16:30)
[2023-04-28] MEDS ORDERED: ACETAMINOPHEN 1000 MG/100 ML BAG IVPB ONE (18:22)
[2023-04-28] MEDS ORDERED: ACETAMINOPHEN 1000 MG/100 ML BAG IVPB SCH (20:00)
[2023-04-28] MEDS ORDERED: ACETAMINOPHEN 1000 MG/100 ML BAG IVPB PRN (20:52)
[2023-04-28] MEDS: CHLORHEXIDINE GLUCONATE 4% CLEANSER FOR DECOLONIZATION TP SCH (21:44)
[2023-04-29] MEDS: PIPERACILLIN/TAZOB 2.25 GM 2.25 GM in DEXTROSE 5%-WATER - 50 ML IVPB SCH ×2 (02:34→10:02)
[2023-04-29] MEDS: INSULIN (LEVEMIR) 100 UNITS/ML UNITS SQ SCH (06:09)
[2023-04-29] MEDS: HEPARIN NA (PORCINE) 5,000 UNITS/ML 1ML VIAL SQ SCH ×3 (06:10→21:36)
[2023-04-29] MEDS: PANTOPRAZOLE 40 MG TABLET PO SCH (06:10)
[2023-04-29] MEDS: INSULIN SLIDING SCALE (NOVOLOG) 1 VIAL SQ SCH ×2 (06:11→18:20)
[2023-04-29 07:23] LABS: HEMATOCRIT 32.4 % (32.4-45.2); HEMOGLOBIN 10.4 GM/dL (10.7-15.3); MCH 25.2 pg (25.7-33.7); MCHC 32.1 g/dl (32.0-36.0); MEAN CELL VOLUME 78.6 fl (80-96); MEAN PLT VOLUME 7.9 fl (7.5-11.1); PLATELET COUNT 172 10^3/uL (134-434); RBC 4.12 M/mm3 (3.60-5.2); RDW 16.2 % (11.6-15.6); WHITE BLOOD COUNT 5.6 K/mm3 (4.0-10.0)
[2023-04-29 07:57] LABS: POTASSIUM 3.5 mmol/L (3.5-5.1)
[2023-04-29 08:00] LABS: BLOOD UREA NITROGEN 17.4 mg/dL (7-18); CALCIUM 8.4 mg/dL (8.5-10.1)
[2023-04-29 08:03] LABS: CREATININE 1.1 mg/dL (0.55-1.3)
[2023-04-29 08:05] LABS: TOT PROT 6.1 g/dl (6.4-8.2)
[2023-04-29] MEDS: MUPIROCIN 2% TOPICAL OINTMENT FOR DECOLONIZATION NS SCH (10:00)
[2023-04-29] MEDS: CALCITRIOL 0.25 MCG CAPSULE (FP) PO SCH (10:02)
[2023-04-29] MEDS: NIFEdipine E.R 60 MG TABLET PO SCH ×2 (10:02→21:36)
[2023-04-29] MEDS: hydrALAZINE HCL 50 MG TABLET (FP) PO SCH ×2 (10:02→21:36)
[2023-04-29] MEDS: ASPIRIN 81 MG CHEWABLE TABLETS PO SCH (10:02)
[2023-04-29] MEDS: METOPROLOL TARTRATE 50 MG TABLET (FP) PO SCH ×2 (10:02→21:36)
[2023-04-29] MEDS: TACROLIMUS ANHYDROUS 1 MG CAPSULE PO SCH ×2 (10:03→21:37)
[2023-04-29] MEDS ORDERED: LOPERAMIDE HCL 2 MG CAPSULE PO PRN (14:04)
[2023-04-29] MEDS: AMOX TR/POT CLAV 875MG/125MG TABLETS (FP) PO SCH (16:48)
[2023-04-29] MEDS: CHLORHEXIDINE GLUCONATE 4% CLEANSER FOR DECOLONIZATION TP SCH (21:36)
[2023-04-30] MEDS: HEPARIN NA (PORCINE) 5,000 UNITS/ML 1ML VIAL SQ SCH ×3 (06:20→21:43)
[2023-04-30] MEDS: PANTOPRAZOLE 40 MG TABLET PO SCH (06:20)
[2023-04-30] MEDS: INSULIN SLIDING SCALE (NOVOLOG) 1 VIAL SQ SCH ×2 (06:21→16:40)
[2023-04-30 07:18] LABS: HEMATOCRIT 32.6 % (32.4-45.2); HEMOGLOBIN 10.3 GM/dL (10.7-15.3); MCH 25.2 pg (25.7-33.7); MCHC 31.7 g/dl (32.0-36.0); MEAN CELL VOLUME 79.6 fl (80-96); PLATELET COUNT 192 10^3/uL (134-434); RBC 4.09 M/mm3 (3.60-5.2); RDW 16.4 % (11.6-15.6); WHITE BLOOD COUNT 5.5 K/mm3 (4.0-10.0)
[2023-04-30 07:45] LABS: POTASSIUM 3.7 mmol/L (3.5-5.1)
[2023-04-30 07:49] LABS: CALCIUM 8.1 mg/dL (8.5-10.1)
[2023-04-30 07:50] LABS: BLOOD UREA NITROGEN 15.5 mg/dL (7-18)
[2023-04-30 07:53] LABS: CREATININE 1.1 mg/dL (0.55-1.3)
[2023-04-30] MEDS: AMOX TR/POT CLAV 875MG/125MG TABLETS (FP) PO SCH (10:20)
[2023-04-30] MEDS: CALCITRIOL 0.25 MCG CAPSULE (FP) PO SCH (10:20)
[2023-04-30] MEDS: LACTOBACILLUS ACIDOPHILUS 1 TABLET PO SCH (11:08)
[2023-04-30] MEDS: TACROLIMUS ANHYDROUS 1 MG CAPSULE PO SCH ×2 (11:08→21:42)
[2023-04-30] MEDS: ASPIRIN 81 MG CHEWABLE TABLETS PO SCH (11:08)
[2023-04-30] MEDS: hydrALAZINE HCL 50 MG TABLET (FP) PO SCH ×2 (11:09→21:42)
[2023-04-30] MEDS: NIFEdipine E.R 60 MG TABLET PO SCH ×2 (11:09→21:42)
[2023-04-30] MEDS: METOPROLOL TARTRATE 50 MG TABLET (FP) PO SCH (11:09)
[2023-04-30] MEDS ORDERED: FUROSEMIDE 40 MG/4 ML INJECTABLE VIAL IVPUSH ONE (12:45)
[2023-04-30] MEDS ORDERED: ACETAMINOPHEN 1000 MG/100 ML BAG IVPB ONE ×2 (13:14→18:36)
[2023-04-30] MEDS ORDERED: ALBUTEROL SO4 2.5/IPRATROPIUM 0.5 INH SOL 3 ML VIAL.NEB. NEB PRN (16:02)
[2023-04-30] MEDS ORDERED: ACETAMINOPHEN 325 MG TABLET (FP) PO ONE (18:19)
[2023-04-30 20:53] VITALS: RESP 19
[2023-04-30] MEDS ORDERED: CHLORHEXIDINE GLUCONATE 4% CLEANSER FOR DECOLONIZATION TP SCH (22:00)
[2023-05-01] MEDS: HEPARIN NA (PORCINE) 5,000 UNITS/ML 1ML VIAL SQ SCH (06:34)
[2023-05-01] MEDS: INSULIN SLIDING SCALE (NOVOLOG) 1 VIAL SQ SCH (06:42)
[2023-05-01] MEDS ORDERED: PANTOPRAZOLE 40 MG TABLET PO SCH (07:00)
[2023-05-01 07:34] VITALS: BP 142/59; PULSE 87; TEMP 98.2
[2023-05-01 08:33] LABS: HEMATOCRIT 31.1 % (32.4-45.2); HEMOGLOBIN 10.1 GM/dL (10.7-15.3); MCH 25.4 pg (25.7-33.7); MCHC 32.5 g/dl (32.0-36.0); MEAN CELL VOLUME 78.2 fl (80-96); MEAN PLT VOLUME 7.8 fl (7.5-11.1); PLATELET COUNT 229 10^3/uL (134-434); RBC 3.98 M/mm3 (3.60-5.2); RDW 16.3 % (11.6-15.6); WHITE BLOOD COUNT 5.7 K/mm3 (4.0-10.0)
[2023-05-01 09:00] LABS: CHLORIDE 95 mmol/L (98-107); POTASSIUM 3.3 mmol/L (3.5-5.1); SODIUM 133 mmol/L (136-145)
[2023-05-01 09:04] LABS: CALCIUM 7.9 mg/dL (8.5-10.1)
[2023-05-01 09:05] LABS: ALBUMIN 2.8 g/dl (3.4-5.0); ANION GAP 21 mmol/L (4-13); BLOOD UREA NITROGEN 20.5 mg/dL (7-18); CO2 17 mmol/L (21-32)
[2023-05-01 09:08] LABS: CREATININE 1.4 mg/dL (0.55-1.3); SGOT/AST 12 U/L (15-37); SGPT/ALT 15 U/L (13-61)
[2023-05-01 09:10] LABS: BILIRUBIN,TOTAL 0.5 mg/dL (0.2-1); TOT PROT 5.8 g/dl (6.4-8.2)
[2023-05-01 09:11] LABS: ALK PHOS 57 U/L (45-117); GLUCOSE,RANDOM 420 mg/dL (74-106)
[2023-05-01] MEDS ORDERED: CALCITRIOL 0.25 MCG CAPSULE (FP) PO SCH (10:00)
[2023-05-01] MEDS ORDERED: ASPIRIN 81 MG CHEWABLE TABLETS PO SCH (10:00)
[2023-05-01] MEDS: LACTOBACILLUS ACIDOPHILUS 1 TABLET PO SCH (10:18)
[2023-05-01] MEDS: NIFEdipine E.R 60 MG TABLET PO SCH (10:19)
[2023-05-01] MEDS: TACROLIMUS ANHYDROUS 1 MG CAPSULE PO SCH (10:19)
[2023-05-01] MEDS: hydrALAZINE HCL 50 MG TABLET (FP) PO SCH (10:19)
[2023-05-01] MEDS ORDERED: INSULIN (LEVEMIR) 100 UNITS/ML UNITS SQ ONE (11:02)
[2023-05-01] MEDS ORDERED: INSULIN SLIDING SCALE (NOVOLOG) 1 VIAL SQ SCH (16:30)
[2023-05-02] MEDS ORDERED: INSULIN (LEVEMIR) 100 UNITS/ML UNITS SQ SCH (22:00)
== END 2023-05-01 12:47 | disposition left against medical advice (07) | DRG 385 ==
LOC: JER 16:06 → JERBED 19:53 → J4W 04-24 13:16 → JICU 04-24 22:29 → J5S 04-30 15:36
PROVIDERS: ADMIT Internal Medicine; ATTEND Internal Medicine
DX: K51.00 Ulcerative (chronic) pancolitis without complications (principal); E11.10 Type 2 diabetes mellitus with ketoacidosis without coma; C18.9 Malignant neoplasm of colon, unspecified; Z94.0 Kidney transplant status; K86.1 Other chronic pancreatitis; D84.9 Immunodeficiency, unspecified; N17.9 Acute kidney failure, unspecified; R18.8 Other ascites; Q45.3 Other congenital malformations of pancreas and pancreatic duct; E87.20 Acidosis, unspecified; I12.9 Hypertensive chronic kidney disease with stage 1 through stage 4 chronic kidney disease, or unspecified chronic kidney disease; N18.9 Chronic kidney disease, unspecified; E87.70 Fluid overload, unspecified; I25.10 Atherosclerotic heart disease of native coronary artery without angina pectoris
CPT/HCPCS: 0241U-QW; 36415; 36600; 71045-TC-FY; 74018-TC-FY; 74176-TC; 76700-TC; 76776-TC; 80048; 80053; 80197; 81003; 82010; 82150; 82550; 82553; 82803; 82962; 83036; 83605; 83690; 83735; 83880; 84100; 84484; 85025; 85027; 85610; 85730; 86140; 86850; 86900; 86901; 87040; 87045; 87046; 87186; 87324; 87338; 87449; 87493; 93005; 93010; 93306-TC; 94640; 94660; 94761; 97116-GP; 97161-GP; 99285-25; J1644; J7517

== ENCOUNTER 2023-07-12 19:32 | Inpatient (IN) | payer OTHER, BC ==
[2023-07-12 19:45] VITALS: BMI 18.7
[2023-07-12 20:11] LABS: HEMATOCRIT 35.7 % (32.4-45.2); HEMOGLOBIN 11.6 G/dL (10.7-15.3); MCH 24.6 pg (25.7-33.7); MCHC 32.4 g/dl (32.0-36.0); MEAN CELL VOLUME 75.7 fl (80-96); MEAN PLT VOLUME 7.1 fl (7.5-11.1); PLATELET COUNT 290.3 10^3/uL (134-434); RBC 4.71 10^6/uL (3.60-5.2); RDW 20.1 % (11.6-15.6); WHITE BLOOD COUNT 11.5 10^3/uL (4.0-10.8)
[2023-07-12 20:27] LABS: ALBUMIN 4.4 g/dl (3.4-5.0); BILIRUBIN,TOTAL 0.7 mg/dl (0.2-1); CREATININE 1.4 mg/dl (0.6-1.3); POTASSIUM 4.1 mmol/L (3.5-5.1); TOT PROT 7.2 g/dl (6.4-8.2)
[2023-07-12 20:40] LABS: PLATELET ESTIMATE ADEQUATE; URIC ACID CRYSTALS FEW /hpf (NONE SEEN)
[2023-07-12] MEDS ORDERED: FUROSEMIDE 40 MG/4 ML INJECTABLE VIAL IVPUSH ONE ×2 (20:52→22:31)
[2023-07-12] MEDS ORDERED: NITROGLYCERIN 2% OINTMENT - 1GM PACKET TD ONE ×2 (20:53→21:03)
[2023-07-12] MEDS ORDERED: FUROSEMIDE 40 MG/4 ML INJECTABLE VIAL ONE ×2 (21:02→22:36)
[2023-07-12] MEDS ORDERED: INSULIN REGULAR HUMAN 100 UNITS/ML *VIAL SQ ONE (22:31)
[2023-07-12] MEDS ORDERED: INSULIN REGULAR HUMAN 100 UNITS/ML *VIAL ONE (22:37)
[2023-07-12 22:38] LABS: N-TERMINAL BNP 6693.4 pg/ml (5-125)
[2023-07-12] MEDS ORDERED: ACETAMINOPHEN 325 MG TABLET (FP) PO PRN (22:56)
[2023-07-12] MEDS ORDERED: DOCUSATE SODIUM 100 MG CAPSULE (FP) PO PRN (22:56)
[2023-07-13] MEDS: MYCOPHENOLATE MOFETIL 500 MG TABLET PO SCH ×3 (00:13→21:52)
[2023-07-13] MEDS: TACROLIMUS ANHYDROUS 1 MG CAPSULE PO SCH ×3 (00:13→21:52)
[2023-07-13] MEDS: hydrALAZINE HCL 50 MG TABLET (FP) PO SCH ×3 (00:14→21:52)
[2023-07-13] MEDS ORDERED: ALBUTEROL SO4 2.5/IPRATROPIUM 0.5 INH SOL 3 ML VIAL.NEB. NEB PRN (04:59)
[2023-07-13] MEDS: METOPROLOL TARTRATE 50 MG TABLET (FP) PO SCH ×3 (05:37→21:52)
[2023-07-13] MEDS ORDERED: HYDROCHLOROTHIAZIDE 50 MG TABLET PO SCH (06:00)
[2023-07-13] MEDS ORDERED: FUROSEMIDE 40 MG/4 ML INJECTABLE VIAL IVPUSH ONE (06:45)
[2023-07-13 07:45] LABS: INR 1.1 (0.83-1.09); PROTHROMBIN TIME (PATIENT) 12.7 SEC (9.7-13.0)
[2023-07-13 07:48] LABS: ACTIVATED PTT 27.5 SECONDS (25.2-36.5)
[2023-07-13 07:50] LABS: HEMATOCRIT 33.2 % (32.4-45.2); HEMOGLOBIN 10.4 G/dL (10.7-15.3); MCH 24.1 pg (25.7-33.7); MCHC 31.4 g/dl (32.0-36.0); MEAN CELL VOLUME 76.7 fl (80-96); MEAN PLT VOLUME 7.5 fl (7.5-11.1); PLATELET COUNT 263.2 10^3/uL (134-434); RBC 4.33 10^6/uL (3.60-5.2); RDW 19.6 % (11.6-15.6)
[2023-07-13 08:12] LABS: CALCIUM 8.6 mg/dl (8.5-10.1); CREATININE 1.3 mg/dl (0.6-1.3); MAGNESIUM 1.8 mg/dL (1.8-2.4); PHOSPHOROUS 4.1 (2.5-4.9); POTASSIUM 4.3 mmol/L (3.5-5.1)
[2023-07-13] MEDS ORDERED: PATIENT'S OWN MEDICATION (NON-FORMULARY) (Nifedipine [Nifedipine Er] 90 MG Tablet.Er) PO SCH (10:00)
[2023-07-13] MEDS ORDERED: FUROSEMIDE 40 MG/4 ML INJECTABLE VIAL IVPUSH SCH (10:00)
[2023-07-13] MEDS: HEPARIN NA (PORCINE) 5,000 UNITS/ML 1ML VIAL SQ SCH ×2 (10:04→21:52)
[2023-07-13] MEDS: CALCITRIOL 0.25 MCG CAPSULE (FP) PO SCH (10:05)
[2023-07-13] MEDS: INSULIN ASPART SLIDING SCALE (NOVOLOG) 1 VIAL SQ SCH ×3 (11:35→21:59)
[2023-07-13] MEDS: ALBUTEROL SO4 2.5/IPRATROPIUM 0.5 INH SOL 3 ML VIAL.NEB. NEB SCH ×3 (13:25→21:51)
[2023-07-14] MEDS ORDERED: ACETAMINOPHEN 1000 MG/100 ML BAG IVPB PRN (01:20)
[2023-07-14] MEDS: INSULIN ASPART SLIDING SCALE (NOVOLOG) 1 VIAL SQ SCH (06:20)
[2023-07-14] MEDS ORDERED: INSULIN ASPART SLIDING SCALE (NOVOLOG) 1 VIAL SQ SCH (07:33)
[2023-07-14] MEDS ORDERED: FUROSEMIDE 40 MG/4 ML INJECTABLE VIAL IVPUSH SCH ×2 (08:00→09:30)
[2023-07-14 08:03] LABS: HEMATOCRIT 31.5 % (32.4-45.2); HEMOGLOBIN 10.1 G/dL (10.7-15.3); MCH 24.8 pg (25.7-33.7); MEAN CELL VOLUME 77.5 fl (80-96); MEAN PLT VOLUME 9.2 fl (7.5-11.1); PLATELET COUNT 278.6 10^3/uL (134-434); RBC 4.07 10^6/uL (3.60-5.2); WHITE BLOOD COUNT 6.5 10^3/uL (4.0-10.8)
[2023-07-14] MEDS ORDERED: TACROLIMUS ANHYDROUS 1 MG CAPSULE PO SCH (08:30)
[2023-07-14] MEDS: HEPARIN NA (PORCINE) 5,000 UNITS/ML 1ML VIAL SQ SCH (09:20)
[2023-07-14] MEDS: hydrALAZINE HCL 50 MG TABLET (FP) PO SCH (09:21)
[2023-07-14] MEDS: CALCITRIOL 0.25 MCG CAPSULE (FP) PO SCH (09:21)
[2023-07-14] MEDS: METOPROLOL TARTRATE 50 MG TABLET (FP) PO SCH (09:21)
[2023-07-14] MEDS: MYCOPHENOLATE MOFETIL 500 MG TABLET PO SCH (09:21)
[2023-07-14] MEDS: ALBUTEROL SO4 2.5/IPRATROPIUM 0.5 INH SOL 3 ML VIAL.NEB. NEB SCH ×2 (09:21→13:40)
[2023-07-14 09:27] LABS: ALBUMIN 3.5 g/dl (3.4-5.0); BILIRUBIN,TOTAL 0.5 mg/dl (0.2-1); CALCIUM 8.6 mg/dl (8.5-10.1); CREATININE 1.4 mg/dl (0.6-1.3); MAGNESIUM 1.7 mg/dL (1.8-2.4); PHOSPHOROUS 4.1 (2.5-4.9); POTASSIUM 3.4 mmol/L (3.5-5.1); TOT PROT 5.7 g/dl (6.4-8.2)
[2023-07-14] MEDS ORDERED: MAGNESIUM SULF 50% (8.12 MEQ/2 ML-1 GM VIAL) IVPB ONE (09:28)
[2023-07-14] MEDS ORDERED: POTASSIUM CHLORIDE ORAL LIQUID 20 MEQ/15 ML PO ONE (09:45)
[2023-07-14] MEDS ORDERED: MAGNESIUM SULFATE IN WATER 2 GM/50 ML IVPB IVPB ONE ×2 (09:45→10:00)
[2023-07-14] MEDS ORDERED: POTASSIUM CHLORIDE TABS 20 MEQ TABLET.ER (FP) PO ONE (10:30)
[2023-07-14] MEDS ORDERED: MAGNESIUM OXIDE 400 MG TABLET (FP) PO ONE (10:30)
[2023-07-14] MEDS ORDERED: NIFEdipine E.R. 90 MG TABLET PO SCH (12:00)
[2023-07-14 14:27] VITALS: BP 186/68; PULSE 74; RESP 16; TEMP 98.1
[2023-07-14] MEDS ORDERED: INSULIN (LEVEMIR) 100 UNITS/ML UNITS SQ SCH (22:00)
[2023-07-15] MEDS ORDERED: FUROSEMIDE 40 MG TABLET (FP) PO SCH (10:00)
== END 2023-07-14 14:54 | disposition home or self-care (01) | DRG 291 ==
LOC: FER 19:32 → FM/S 07-13 02:04
PROVIDERS: ADMIT Internal Medicine; ATTEND Internal Medicine
DX: I13.0 Hypertensive heart and chronic kidney disease with heart failure and stage 1 through stage 4 chronic kidney disease, or unspecified chronic kidney disease (principal); I50.23 Acute on chronic systolic (congestive) heart failure; J96.01 Acute respiratory failure with hypoxia; Z94.0 Kidney transplant status; R64 Cachexia; N17.9 Acute kidney failure, unspecified; K86.1 Other chronic pancreatitis; Z68.1 Body mass index [BMI] 19.9 or less, adult; I24.89 Other forms of acute ischemic heart disease; J45.909 Unspecified asthma, uncomplicated; J44.9 Chronic obstructive pulmonary disease, unspecified; K21.9 Gastro-esophageal reflux disease without esophagitis
CPT/HCPCS: 0241U-QW; 36415; 71045-TC-FY; 80048; 80053; 80197; 81003; 81015; 82010; 82962; 83605; 83735; 83880; 84100; 84484; 85027; 85610; 85730; 87045; 87046; 87086; 87186; 93005; 93306-TC; 94640; 99285-25; J1644; J7517

== ENCOUNTER 2023-07-15 08:56 | Inpatient (IN) | payer OTHER, BC ==
[2023-07-15] MEDS ORDERED: FUROSEMIDE 40 MG/4 ML INJECTABLE VIAL IVPUSH ONE (09:13)
[2023-07-15] MEDS ORDERED: ALBUTEROL SO4 2.5/IPRATROPIUM 0.5 INH SOL 3 ML VIAL.NEB. NEB ONE ×2 (09:28→10:29)
[2023-07-15] MEDS ORDERED: FUROSEMIDE 40 MG/4 ML INJECTABLE VIAL ONE (09:28)
[2023-07-15] MEDS: ALBUTEROL SO4 2.5/IPRATROPIUM 0.5 INH SOL 3 ML VIAL.NEB. NEB SCH ×2 (09:35→09:45)
[2023-07-15 09:47] LABS: HEMATOCRIT 34.7 % (32.4-45.2); MCH 23.8 pg (25.7-33.7); MCHC 31.7 g/dl (32.0-36.0); MEAN CELL VOLUME 75.2 fl (80-96); MEAN PLT VOLUME 7.7 fl (7.5-11.1); PLATELET COUNT 281.6 10^3/uL (134-434); RBC 4.62 10^6/uL (3.60-5.2); RDW 19.3 % (11.6-15.6); WHITE BLOOD COUNT 7.3 10^3/uL (4.0-10.8)
[2023-07-15 09:49] LABS: ALBUMIN 4.5 g/dl (3.4-5.0); BILIRUBIN,TOTAL 0.6 mg/dl (0.2-1); CALCIUM 9.8 mg/dl (8.5-10.1); CREATININE 1.4 mg/dl (0.6-1.3); TOT PROT 7.2 g/dl (6.4-8.2)
[2023-07-15 10:09] LABS: PLATELET ESTIMATE ADEQUATE
[2023-07-15 10:50] LABS: N-TERMINAL BNP 6806.2 pg/ml (5-125)
[2023-07-15] MEDS ORDERED: NIFEdipine E.R. 90 MG TABLET PO SCH (15:30)
[2023-07-15] MEDS: INSULIN ASPART SLIDING SCALE (NOVOLOG) 1 VIAL SQ SCH (16:14)
[2023-07-15] MEDS ORDERED: diphenhydrAMINE HCL 25 MG CAPSULE (FP) PO ONE (17:28)
[2023-07-15] MEDS ORDERED: CLOPIDOGREL BISULFATE 75 MG TABLET (FP) PO ONE (17:42)
[2023-07-15] MEDS: ASPIRIN 81 MG CHEWABLE TABLETS PO SCH (18:44)
[2023-07-15] MEDS: ALBUTEROL SO4 2.5/IPRATROPIUM 0.5 INH SOL 3 ML VIAL.NEB. NEB PRN (18:45)
[2023-07-15] MEDS: MYCOPHENOLATE MOFETIL 500 MG TABLET PO SCH (21:13)
[2023-07-15] MEDS: SACUBITRIL/VALSARTAN 24 MG-26 MG TABLET PO SCH (21:13)
[2023-07-15] MEDS: METOPROLOL TARTRATE 50 MG TABLET (FP) PO SCH (21:13)
[2023-07-15] MEDS: TACROLIMUS ANHYDROUS 1 MG CAPSULE PO SCH (21:14)
[2023-07-15] MEDS ORDERED: INSULIN (LEVEMIR) 100 UNITS/ML UNITS SQ SCH ×2 (22:00)
[2023-07-16] MEDS ORDERED: diphenhydrAMINE HCL 50 MG CAPSULE PO ONE (03:44)
[2023-07-16] MEDS: INSULIN ASPART SLIDING SCALE (NOVOLOG) 1 VIAL SQ SCH ×3 (06:22→16:09)
[2023-07-16 08:45] LABS: HEMATOCRIT 35.1 % (32.4-45.2); HEMOGLOBIN 10.9 G/dL (10.7-15.3); MCH 23.4 pg (25.7-33.7); MCHC 30.9 g/dl (32.0-36.0); MEAN CELL VOLUME 75.8 fl (80-96); MEAN PLT VOLUME 7.5 fl (7.5-11.1); PLATELET COUNT 241.1 10^3/uL (134-434); RBC 4.63 10^6/uL (3.60-5.2); WHITE BLOOD COUNT 5.5 10^3/uL (4.0-10.8)
[2023-07-16 08:57] LABS: CALCIUM 8.9 mg/dl (8.5-10.1); CREATININE 0.9 mg/dl (0.6-1.3); MAGNESIUM 1.7 mg/dL (1.8-2.4); PHOSPHOROUS 4.1 (2.5-4.9); POTASSIUM 3.9 mmol/L (3.5-5.1)
[2023-07-16] MEDS: CLOPIDOGREL BISULFATE 75 MG TABLET (FP) PO SCH (09:10)
[2023-07-16] MEDS: SACUBITRIL/VALSARTAN 24 MG-26 MG TABLET PO SCH (09:10)
[2023-07-16] MEDS: METOPROLOL TARTRATE 50 MG TABLET (FP) PO SCH ×2 (09:10→21:15)
[2023-07-16] MEDS: TACROLIMUS ANHYDROUS 1 MG CAPSULE PO SCH ×2 (09:10→21:15)
[2023-07-16] MEDS: MYCOPHENOLATE MOFETIL 500 MG TABLET PO SCH ×2 (09:10→21:15)
[2023-07-16] MEDS: ASPIRIN 81 MG CHEWABLE TABLETS PO SCH (09:10)
[2023-07-16] MEDS: CALCITRIOL 0.25 MCG CAPSULE (FP) PO SCH (09:10)
[2023-07-16] MEDS: ALBUTEROL SO4 2.5/IPRATROPIUM 0.5 INH SOL 3 ML VIAL.NEB. NEB PRN (09:11)
[2023-07-16] MEDS ORDERED: NIFEdipine E.R. 90 MG TABLET PO SCH (10:00)
[2023-07-16] MEDS ORDERED: FUROSEMIDE 40 MG/4 ML INJECTABLE VIAL IVPUSH SCH (10:00)
[2023-07-16] MEDS ORDERED: ASPIRIN COATED 81 MG TABLET.EC PO SCH (10:00)
[2023-07-16] MEDS ORDERED: ENOXAPARIN NA (PORCINE) 30 MG/0.3 ML DISP.SYRIN SQ SCH (10:00)
[2023-07-16] MEDS ORDERED: FUROSEMIDE 40 MG/4 ML INJECTABLE VIAL IVPUSH ONE (11:45)
[2023-07-16] MEDS ORDERED: SACUBITRIL/VALSARTAN 24 MG-26 MG TABLET PO ONE (12:00)
[2023-07-16] MEDS: diphenhydrAMINE HCL 25 MG CAPSULE (FP) PO PRN (12:05)
[2023-07-16] MEDS ORDERED: hydrALAZINE HCL 10 MG TABLET PO SCH (14:00)
[2023-07-16 14:07] LABS: CALCIUM 8.8 mg/dl (8.5-10.1); POTASSIUM 4.5 mmol/L (3.5-5.1)
[2023-07-16] MEDS: SACUBITRIL/VALSARTAN 49 MG-51 MG TABLET PO SCH (21:15)
[2023-07-16] MEDS: hydrALAZINE HCL 25 MG TABLET (FP) PO SCH (21:15)
[2023-07-17] MEDS ORDERED: INSULIN (NOVOLOG) ASPART 100 UNITS/ML 10ML VIAL SQ ONE (01:41)
[2023-07-17] MEDS: INSULIN ASPART SLIDING SCALE (NOVOLOG) 1 VIAL SQ SCH ×3 (06:50→16:45)
[2023-07-17] MEDS: hydrALAZINE HCL 25 MG TABLET (FP) PO SCH ×3 (06:50→21:05)
[2023-07-17] MEDS: ALBUTEROL SO4 2.5/IPRATROPIUM 0.5 INH SOL 3 ML VIAL.NEB. NEB PRN (09:05)
[2023-07-17] MEDS: CLOPIDOGREL BISULFATE 75 MG TABLET (FP) PO SCH (09:05)
[2023-07-17] MEDS: SACUBITRIL/VALSARTAN 49 MG-51 MG TABLET PO SCH ×2 (09:05→21:05)
[2023-07-17] MEDS: METOPROLOL TARTRATE 50 MG TABLET (FP) PO SCH ×2 (09:05→21:05)
[2023-07-17] MEDS: MYCOPHENOLATE MOFETIL 500 MG TABLET PO SCH ×2 (09:05→21:05)
[2023-07-17] MEDS: TACROLIMUS ANHYDROUS 1 MG CAPSULE PO SCH ×2 (09:05→21:06)
[2023-07-17] MEDS: ASPIRIN 81 MG CHEWABLE TABLETS PO SCH (09:05)
[2023-07-17] MEDS: CALCITRIOL 0.25 MCG CAPSULE (FP) PO SCH (09:05)
[2023-07-17] MEDS: diphenhydrAMINE HCL 25 MG CAPSULE (FP) PO PRN ×2 (10:03→19:15)
[2023-07-17 11:53] LABS: HEMATOCRIT 39.8 % (32.4-45.2); HEMOGLOBIN 12.9 G/dL (10.7-15.3); MCHC 32.4 g/dl (32.0-36.0); MEAN CELL VOLUME 76.9 fl (80-96); MEAN PLT VOLUME 7.6 fl (7.5-11.1); PLATELET COUNT 243.5 10^3/uL (134-434); RBC 5.17 10^6/uL (3.60-5.2); WHITE BLOOD COUNT 4.3 10^3/uL (4.0-10.8)
[2023-07-17 12:22] LABS: CREATININE 0.9 mg/dl (0.6-1.3); MAGNESIUM 1.7 mg/dL (1.8-2.4); PHOSPHOROUS 2.9 (2.5-4.9); POTASSIUM 4.4 mmol/L (3.5-5.1)
[2023-07-17] MEDS ORDERED: MAGNESIUM SULFATE IN WATER 2 GM/50 ML IVPB IVPB ONE (14:06)
[2023-07-17] MEDS ORDERED: INSULIN (LEVEMIR) 100 UNITS/ML UNITS SQ SCH ×2 (22:00)
[2023-07-18] MEDS: diphenhydrAMINE HCL 25 MG CAPSULE (FP) PO PRN ×2 (04:18→14:32)
[2023-07-18] MEDS: hydrALAZINE HCL 25 MG TABLET (FP) PO SCH (06:56)
[2023-07-18] MEDS: INSULIN ASPART SLIDING SCALE (NOVOLOG) 1 VIAL SQ SCH ×2 (06:57→17:45)
[2023-07-18 07:52] LABS: HEMATOCRIT 35.9 % (32.4-45.2); MCH 23.7 pg (25.7-33.7); MCHC 30.7 g/dl (32.0-36.0); MEAN CELL VOLUME 77.4 fl (80-96); RBC 4.64 10^6/uL (3.60-5.2); RDW 19.6 % (11.6-15.6); WHITE BLOOD COUNT 4.4 10^3/uL (4.0-10.8)
[2023-07-18 08:03] LABS: INR 1.08 (0.83-1.09); PROTHROMBIN TIME (PATIENT) 12.5 SEC (9.7-13.0)
[2023-07-18 08:41] LABS: ALBUMIN 3.5 g/dl (3.4-5.0); BILIRUBIN,TOTAL 0.3 mg/dl (0.2-1); CALCIUM 8.5 mg/dl (8.5-10.1); CREATININE 0.9 mg/dl (0.6-1.3); MAGNESIUM 1.9 mg/dL (1.8-2.4); PHOSPHOROUS 3.2 (2.5-4.9); POTASSIUM 3.9 mmol/L (3.5-5.1); TOT PROT 5.5 g/dl (6.4-8.2)
[2023-07-18] MEDS: CLOPIDOGREL BISULFATE 75 MG TABLET (FP) PO SCH (09:11)
[2023-07-18] MEDS: ASPIRIN 81 MG CHEWABLE TABLETS PO SCH (09:11)
[2023-07-18] MEDS: CALCITRIOL 0.25 MCG CAPSULE (FP) PO SCH (09:11)
[2023-07-18] MEDS: SACUBITRIL/VALSARTAN 49 MG-51 MG TABLET PO SCH ×2 (09:11→21:25)
[2023-07-18] MEDS: MYCOPHENOLATE MOFETIL 500 MG TABLET PO SCH ×2 (09:11→21:25)
[2023-07-18] MEDS: METOPROLOL TARTRATE 50 MG TABLET (FP) PO SCH ×2 (09:11→21:25)
[2023-07-18] MEDS: TACROLIMUS ANHYDROUS 1 MG CAPSULE PO SCH ×2 (09:11→21:25)
[2023-07-18 09:17] VITALS: BMI 18.1
[2023-07-18] MEDS ORDERED: INSULIN ASPART SLIDING SCALE (NOVOLOG) 1 VIAL SQ SCH ×3 (10:59→13:12)
[2023-07-18] MEDS ORDERED: INSULIN (LEVEMIR) 100 UNITS/ML UNITS SQ SCH (10:59)
[2023-07-18] MEDS ORDERED: INSULIN (NOVOLOG) ASPART 100 UNITS/ML 10ML VIAL SQ SCH (11:00)
[2023-07-18] MEDS: hydrALAZINE HCL 50 MG TABLET (FP) PO SCH ×2 (13:23→21:25)
[2023-07-18] MEDS ORDERED: hydrALAZINE HCL 25 MG TABLET (FP) PO SCH (14:00)
[2023-07-19] MEDS: hydrALAZINE HCL 50 MG TABLET (FP) PO SCH (05:13)
[2023-07-19] MEDS: diphenhydrAMINE HCL 25 MG CAPSULE (FP) PO PRN (05:13)
[2023-07-19] MEDS: INSULIN ASPART SLIDING SCALE (NOVOLOG) 1 VIAL SQ SCH (07:22)
[2023-07-19] MEDS: CLOPIDOGREL BISULFATE 75 MG TABLET (FP) PO SCH (09:27)
[2023-07-19] MEDS: ASPIRIN 81 MG CHEWABLE TABLETS PO SCH (09:27)
[2023-07-19] MEDS: METOPROLOL TARTRATE 50 MG TABLET (FP) PO SCH (09:27)
[2023-07-19] MEDS: MYCOPHENOLATE MOFETIL 500 MG TABLET PO SCH (09:27)
[2023-07-19] MEDS: ALBUTEROL SO4 2.5/IPRATROPIUM 0.5 INH SOL 3 ML VIAL.NEB. NEB PRN (09:27)
[2023-07-19] MEDS: CALCITRIOL 0.25 MCG CAPSULE (FP) PO SCH (09:27)
[2023-07-19] MEDS: TACROLIMUS ANHYDROUS 1 MG CAPSULE PO SCH (09:27)
[2023-07-19] MEDS: SACUBITRIL/VALSARTAN 49 MG-51 MG TABLET PO SCH (09:27)
[2023-07-19 09:41] LABS: CALCIUM 8.9 mg/dl (8.5-10.1); POTASSIUM 4.7 mmol/L (3.5-5.1)
[2023-07-19 10:24] VITALS: BP 158/77; PULSE 66; RESP 18; TEMP 98.2
[2023-07-19 10:42] LABS: BASO % 0.5 % (0-2.0); EOS % 1.6 % (0-4.5); HEMATOCRIT 39.7 % (32.4-45.2); HEMOGLOBIN 12.3 GM/dL (10.7-15.3); LYMPH % 24.4 % (8-40); MCH 23.2 pg (25.7-33.7); MCHC 30.9 g/dl (32.0-36.0); MEAN CELL VOLUME 75.1 fl (80-96); MEAN PLT VOLUME 7.3 fl (7.5-11.1); MONO % 7.7 % (3.8-10.2); NEUT % 65.8 % (42.8-82.8); PLATELET COUNT 319 10^3/uL (134-434); RBC 5.29 M/mm3 (3.60-5.2); RDW 19.7 % (11.6-15.6); WHITE BLOOD COUNT 4.3 K/mm3 (4.0-10.0)
== END 2023-07-19 11:56 | disposition short-term general hospital (02) | DRG 291 ==
LOC: FER 08:56 → OBSVTOIN 11:16 → FM/S 11:16
PROVIDERS: ADMIT Internal Medicine; ATTEND Internal Medicine
DX: I13.0 Hypertensive heart and chronic kidney disease with heart failure and stage 1 through stage 4 chronic kidney disease, or unspecified chronic kidney disease (principal); I50.23 Acute on chronic systolic (congestive) heart failure; J96.01 Acute respiratory failure with hypoxia; R64 Cachexia; C18.9 Malignant neoplasm of colon, unspecified; Z94.0 Kidney transplant status; N17.9 Acute kidney failure, unspecified; K86.1 Other chronic pancreatitis; Z68.1 Body mass index [BMI] 19.9 or less, adult; E11.649 Type 2 diabetes mellitus with hypoglycemia without coma; I16.0 Hypertensive urgency; E11.319 Type 2 diabetes mellitus with unspecified diabetic retinopathy without macular edema; I27.20 Pulmonary hypertension, unspecified; J44.9 Chronic obstructive pulmonary disease, unspecified; E11.22 Type 2 diabetes mellitus with diabetic chronic kidney disease; E11.65 Type 2 diabetes mellitus with hyperglycemia; E11.40 Type 2 diabetes mellitus with diabetic neuropathy, unspecified; E11.51 Type 2 diabetes mellitus with diabetic peripheral angiopathy without gangrene; N18.9 Chronic kidney disease, unspecified; I25.10 Atherosclerotic heart disease of native coronary artery without angina pectoris
CPT/HCPCS: 0241U-QW; 36415; 71045-TC-FY; 80048; 80053; 82962; 83036; 83735; 83880; 84100; 84443; 84484; 85025; 85027; 85610; 93005; 94640; 99291; J7517

== ENCOUNTER 2023-08-02 09:46 | Inpatient (IN) | payer OTHER, BC ==
[2023-08-02 10:02] VITALS: BMI 20.9
[2023-08-02 10:47] LABS: VENOUS BASE EXCESS -4.9 mmol/L (-2-2); VENOUS O2 SATURATION 67.9 % (70-80); VENOUS PCO2 46.1 mmHg (38-52); VENOUS PH 7.29 (7.310-7.410)
[2023-08-02 10:59] LABS: EOS % 0.4 % (0-4.5); HEMATOCRIT 30.6 % (32.4-45.2); HEMOGLOBIN 9.9 GM/dL (10.7-15.3); INR 1.03 (0.83-1.09); LYMPH % 6.8 % (8-40); MCHC 32.3 g/dl (32.0-36.0); MEAN CELL VOLUME 74.2 fl (80-96); MEAN PLT VOLUME 8.1 fl (7.5-11.1); MONO % 4.9 % (3.8-10.2); NEUT % 86.9 % (42.8-82.8); PLATELET COUNT 290 10^3/uL (134-434); RBC 4.12 M/mm3 (3.60-5.2); RDW 20.7 % (11.6-15.6); WHITE BLOOD COUNT 7.8 K/mm3 (4.0-10.0)
[2023-08-02 11:00] LABS: ACTIVATED PTT 27.8 SECONDS (25.2-36.5)
[2023-08-02 11:09] LABS: POTASSIUM 5.1 mmol/L (3.5-5.1)
[2023-08-02 11:12] LABS: CALCIUM 8.8 mg/dL (8.5-10.1)
[2023-08-02 11:13] LABS: ALBUMIN 3.9 g/dl (3.4-5.0); BLOOD UREA NITROGEN 26.1 mg/dL (7-18); MAGNESIUM 1.9 mg/dL (1.8-2.4)
[2023-08-02 11:16] LABS: CREATININE 1.1 mg/dL (0.55-1.3)
[2023-08-02] MEDS ORDERED: FUROSEMIDE 40 MG/4 ML INJECTABLE VIAL ONE (11:17)
[2023-08-02] MEDS ORDERED: NITROGLYCERIN 25MG/D5W 250ML 25 MG/250 ML ML IVPB ONE ×2 (11:17→15:36)
[2023-08-02 11:18] LABS: BILIRUBIN,TOTAL 0.7 mg/dL (0.2-1); TOT PROT 7.8 g/dl (6.4-8.2)
[2023-08-02 11:21] LABS: N-TERMINAL BNP 8348.2 pg/ml (5-125)
[2023-08-02] MEDS: NITROGLYCERIN 25MG/D5W 250ML 25 MG/250 ML ML IVPB SCH (11:37)
[2023-08-02] MEDS: ALBUTEROL SO4 2.5/IPRATROPIUM 0.5 INH SOL 3 ML VIAL.NEB. NEB SCH (11:37)
[2023-08-02] MEDS: FUROSEMIDE 40 MG/4 ML INJECTABLE VIAL IVPUSH ONE (11:37)
[2023-08-02 12:31] LABS: EPI CELLS 4 /uL (0-25.1); HYALINE CASTS 0 /uL (0-3.1); PH,URINE 5.5 (5.0-8.0); URINE APPEARANCE CLEAR; URINE BACTERIA 1 /uL (0-1359); URINE BILIRUBIN NEGATIVE (NEGATIVE); URINE COLOR YELLOW; URINE GLUCOSE (UA) NEGATIVE (NEGATIVE); URINE KETONE NEGATIVE (NEGATIVE); URINE LEUK ESTERASE NEGATIVE (NEGATIVE); URINE NITRITE NEGATIVE (NEGATIVE); URINE PROTEIN 1+ (NEGATIVE); URINE RBC 13 /uL (0-23.9); URINE UROBILINOGEN 0.2 mg/dL (0.2-1.0); URINE WBC 2 /uL (0-25.8)
[2023-08-02 12:35] LABS: ANISOCYTOSIS 2+; MACROCYTOSIS 0
[2023-08-02] MEDS ORDERED: NIFEdipine E.R 60 MG TABLET PO ONE (12:54)
[2023-08-02] MEDS ORDERED: ACETAMINOPHEN INJECTION 100 ML IVPB ONE (12:54)
[2023-08-02] MEDS ORDERED: NIFEdipine E.R. 30 MG TABLET PO ONE (12:54)
[2023-08-02] MEDS: NIFEdipine E.R. 90 MG TABLET PO ONE (12:58)
[2023-08-02] MEDS: NITROGLYCERIN 25MG/D5W 250ML 25 MG/250 ML ML IVPB ONE (14:30)
[2023-08-02] MEDS ORDERED: ALBUTEROL SO4 HFA INHALER IH PRN (14:52)
[2023-08-02] MEDS: LISINOPRIL 10 MG TABLET PO SCH (17:12)
[2023-08-02] MEDS: INSULIN (NOVOLOG) ASPART 100 UNITS/ML 10ML VIAL SQ SCH (17:12)
[2023-08-02] MEDS: CARVEDILOL 12.5 MG TABLET (FP) PO SCH (17:13)
[2023-08-02] MEDS: NITROGLYCERIN 2% OINTMENT - 1GM PACKET TD ONE (20:00)
[2023-08-02] MEDS: ATORVASTATIN CA 80 MG TABLET (FP) PO SCH (21:58)
[2023-08-02] MEDS: TACROLIMUS ANHYDROUS 1 MG CAPSULE PO SCH (21:58)
[2023-08-02] MEDS: SACUBITRIL/VALSARTAN 24 MG-26 MG TABLET PO SCH (21:58)
[2023-08-02] MEDS: CARVEDILOL 25 MG TABLET (FP) PO SCH (21:58)
[2023-08-02] MEDS: MYCOPHENOLATE MOFETIL 500 MG TABLET PO SCH (21:58)
[2023-08-02] MEDS: HEPARIN NA (PORCINE) 5,000 UNITS/ML 1ML VIAL SQ SCH (21:59)
[2023-08-02] MEDS: INSULIN (LEVEMIR) 100 UNITS/ML UNITS SQ SCH (21:59)
[2023-08-02] MEDS ORDERED: NIFEdipine E.R. 90 MG TABLET PO SCH (22:00)
[2023-08-02] MEDS ORDERED: metoPROLOL SUCCINATE 25 MG TAB.SR.24H (FP) PO SCH (22:00)
[2023-08-02] MEDS: diphenhydrAMINE HCL 25 MG CAPSULE (FP) PO ONE (22:54)
[2023-08-03 08:03] LABS: BASO % 0.9 % (0-2.0); HEMATOCRIT 30.7 % (32.4-45.2); HEMOGLOBIN 9.8 GM/dL (10.7-15.3); LYMPH % 10.8 % (8-40); MCH 23.8 pg (25.7-33.7); MEAN CELL VOLUME 74.4 fl (80-96); MEAN PLT VOLUME 7.1 fl (7.5-11.1); MONO % 5.6 % (3.8-10.2); NEUT % 81.7 % (42.8-82.8); PLATELET COUNT 284 10^3/uL (134-434); RBC 4.13 M/mm3 (3.60-5.2); WHITE BLOOD COUNT 5.7 K/mm3 (4.0-10.0)
[2023-08-03 08:17] LABS: CHLORIDE 113 mmol/L (98-107); POTASSIUM 4.2 mmol/L (3.5-5.1); SODIUM 144 mmol/L (136-145)
[2023-08-03 08:24] LABS: ALBUMIN 3.2 g/dl (3.4-5.0); ANION GAP 5 mmol/L (4-13); BLOOD UREA NITROGEN 24.6 mg/dL (7-18); CALCIUM 8.6 mg/dL (8.5-10.1); CO2 27 mmol/L (21-32)
[2023-08-03 08:25] LABS: MAGNESIUM 1.7 mg/dL (1.8-2.4)
[2023-08-03 08:27] LABS: SGOT/AST 12 U/L (15-37)
[2023-08-03 08:28] LABS: PHOSPHOROUS 4.1 mg/dL (2.5-4.9); SGPT/ALT 16 U/L (13-61)
[2023-08-03 08:29] LABS: BILIRUBIN,TOTAL 0.7 mg/dL (0.2-1); TOT PROT 6.7 g/dl (6.4-8.2)
[2023-08-03 08:30] LABS: ALK PHOS 57 U/L (45-117)
[2023-08-03 08:32] LABS: GLUCOSE,RANDOM 35 mg/dL (74-106)
[2023-08-03] MEDS: CLOPIDOGREL BISULFATE 75 MG TABLET (FP) PO SCH (09:43)
[2023-08-03] MEDS: CALCITRIOL 0.25 MCG CAPSULE (FP) PO SCH (09:43)
[2023-08-03] MEDS: EMPAGLIFLOZIN (JARDIANCE) 10 MG TABLET PO SCH (09:43)
[2023-08-03] MEDS: amLODIPine BESYLATE 10 MG TABLET (FP) PO SCH (09:43)
[2023-08-03] MEDS: ASPIRIN COATED 81 MG TABLET.EC PO SCH (09:43)
[2023-08-03] MEDS: FUROSEMIDE 40 MG/4 ML INJECTABLE VIAL IVPUSH SCH (09:43)
[2023-08-03] MEDS ORDERED: PATIENT'S OWN MEDICATION (NON-FORMULARY) (Nifedipine [Nifedipine Er] 90 MG Tablet.Er) PO SCH (10:00)
[2023-08-03] MEDS: INSULIN ASPART SLIDING SCALE (NOVOLOG) 1 VIAL SQ SCH (12:23)
[2023-08-03] MEDS: MAGNESIUM 2GM/50ML STERILE WATER IVPB IVPB ONE (13:48)
[2023-08-03] MEDS: diphenhydrAMINE HCL 25 MG CAPSULE (FP) PO ONE (17:09)
[2023-08-04] MEDS: diphenhydrAMINE HCL 25 MG CAPSULE (FP) PO ONE (01:33)
[2023-08-04 08:34] LABS: HEMATOCRIT 32.9 % (32.4-45.2); HEMOGLOBIN 10.7 GM/dL (10.7-15.3); MCH 24.4 pg (25.7-33.7); MCHC 32.6 g/dl (32.0-36.0); MEAN CELL VOLUME 74.7 fl (80-96); MEAN PLT VOLUME 7.2 fl (7.5-11.1); PLATELET COUNT 254 10^3/uL (134-434); RBC 4.41 M/mm3 (3.60-5.2); RDW 20.1 % (11.6-15.6); WHITE BLOOD COUNT 5.2 K/mm3 (4.0-10.0)
[2023-08-04 08:48] LABS: POTASSIUM 4.6 mmol/L (3.5-5.1)
[2023-08-04 08:52] LABS: ALBUMIN 3.1 g/dl (3.4-5.0); BLOOD UREA NITROGEN 20.6 mg/dL (7-18); CALCIUM 8.2 mg/dL (8.5-10.1); MAGNESIUM 1.9 mg/dL (1.8-2.4)
[2023-08-04 08:55] LABS: CREATININE 1.1 mg/dL (0.55-1.3); PHOSPHOROUS 3.5 mg/dL (2.5-4.9)
[2023-08-04 08:57] LABS: BILIRUBIN,TOTAL 0.6 mg/dL (0.2-1); TOT PROT 6.3 g/dl (6.4-8.2)
[2023-08-04] MEDS: ENOXAPARIN NA (PORCINE) 40 MG/0.4 ML DISP.SYRIN SQ SCH (09:16)
[2023-08-04] MEDS: ASPIRIN 81 MG CHEWABLE TABLETS PO SCH (09:17)
[2023-08-04] MEDS: diphenhydrAMINE HCL 25 MG CAPSULE (FP) PO PRN (09:17)
[2023-08-04] MEDS: INSULIN (LEVEMIR) 100 UNITS/ML UNITS SQ ONE (09:29)
[2023-08-04] MEDS: ISOSORBIDE DINITRATE 10 MG TABLET PO SCH (10:50)
[2023-08-04] MEDS: hydrALAZINE HCL 10 MG TABLET PO SCH (10:50)
[2023-08-04] MEDS: SACUBITRIL/VALSARTAN 49 MG-51 MG TABLET PO SCH (10:50)
[2023-08-04] MEDS: INSULIN ASPART SLIDING SCALE (NOVOLOG) 1 VIAL SQ SCH (23:27)
[2023-08-04] MEDS ORDERED: INSULIN ASPART SLIDING SCALE (NOVOLOG) 1 VIAL SQ SCH (23:30)
[2023-08-05] MEDS: INSULIN (LEVEMIR) 100 UNITS/ML UNITS SQ SCH ×2 (06:33→22:13)
[2023-08-05] MEDS ORDERED: INSULIN ASPART SLIDING SCALE (NOVOLOG) 1 VIAL SQ SCH ×2 (07:00)
[2023-08-05 07:40] LABS: HEMATOCRIT 33.4 % (32.4-45.2); HEMOGLOBIN 10.7 GM/dL (10.7-15.3); MCHC 32.2 g/dl (32.0-36.0); MEAN CELL VOLUME 74.4 fl (80-96); MEAN PLT VOLUME 7.2 fl (7.5-11.1); PLATELET COUNT 293 10^3/uL (134-434); RBC 4.48 M/mm3 (3.60-5.2); RDW 20.3 % (11.6-15.6); WHITE BLOOD COUNT 6.5 K/mm3 (4.0-10.0)
[2023-08-05 07:59] LABS: POTASSIUM 4.3 mmol/L (3.5-5.1)
[2023-08-05 08:07] LABS: ALBUMIN 3.1 g/dl (3.4-5.0); CALCIUM 8.8 mg/dL (8.5-10.1)
[2023-08-05 08:08] LABS: BLOOD UREA NITROGEN 24.2 mg/dL (7-18); MAGNESIUM 1.8 mg/dL (1.8-2.4)
[2023-08-05 08:10] LABS: PHOSPHOROUS 3.3 mg/dL (2.5-4.9)
[2023-08-05 08:11] LABS: BILIRUBIN,TOTAL 0.6 mg/dL (0.2-1); CREATININE 1.2 mg/dL (0.55-1.3); TOT PROT 6.7 g/dl (6.4-8.2)
[2023-08-05] MEDS: FUROSEMIDE 20 MG TABLET (FP) PO SCH (09:19)
[2023-08-05] MEDS: SPIRONOLACTONE 25 MG TABLET PO SCH (09:20)
[2023-08-05] MEDS: INSULIN (NOVOLOG) ASPART 100 UNITS/ML 10ML VIAL SQ SCH (12:24)
[2023-08-05] MEDS: MAGNESIUM SULF 50% (8.12 MEQ/2 ML-1 GM VIAL) IVPB ONE (16:11)
[2023-08-05] MEDS: LORATADINE 10 MG TABLET PO ONE (17:24)
[2023-08-05] MEDS ORDERED: INSULIN (LEVEMIR) 100 UNITS/ML UNITS SQ SCH (22:00)
[2023-08-06] MEDS: INSULIN ASPART SLIDING SCALE (NOVOLOG) 1 VIAL SQ SCH (06:34)
[2023-08-06 08:19] LABS: HEMATOCRIT 29.5 % (32.4-45.2); HEMOGLOBIN 9.6 GM/dL (10.7-15.3); MCH 24.1 pg (25.7-33.7); MCHC 32.7 g/dl (32.0-36.0); MEAN CELL VOLUME 73.6 fl (80-96); PLATELET COUNT 264 10^3/uL (134-434); RBC 4.01 M/mm3 (3.60-5.2); RDW 19.8 % (11.6-15.6); WHITE BLOOD COUNT 4.8 K/mm3 (4.0-10.0)
[2023-08-06 08:38] LABS: POTASSIUM 3.9 mmol/L (3.5-5.1)
[2023-08-06 08:52] LABS: CALCIUM 8.2 mg/dL (8.5-10.1); MAGNESIUM 2.4 mg/dL (1.8-2.4)
[2023-08-06 08:54] LABS: PHOSPHOROUS 4.3 mg/dL (2.5-4.9)
[2023-08-06 08:55] LABS: CREATININE 1.2 mg/dL (0.55-1.3)
[2023-08-06 08:56] LABS: BILIRUBIN,TOTAL 0.3 mg/dL (0.2-1)
[2023-08-06] MEDS: amLODIPine BESYLATE 10 MG TABLET (FP) PO SCH (09:44)
[2023-08-06 20:35] VITALS: BP 133/105; PULSE 116; RESP 19; TEMP 98.2
== END 2023-08-06 10:04 | disposition home or self-care (01) | DRG 291 ==
LOC: JER 09:46 → JERBED 12:56 → J4W 16:23
PROVIDERS: ADMIT Internal Medicine; ATTEND Internal Medicine
DX: I11.0 Hypertensive heart disease with heart failure (principal); I50.23 Acute on chronic systolic (congestive) heart failure; J96.01 Acute respiratory failure with hypoxia; Z94.0 Kidney transplant status; I24.89 Other forms of acute ischemic heart disease; J44.9 Chronic obstructive pulmonary disease, unspecified; I25.10 Atherosclerotic heart disease of native coronary artery without angina pectoris; E11.9 Type 2 diabetes mellitus without complications; K21.9 Gastro-esophageal reflux disease without esophagitis; Z79.4 Long term (current) use of insulin; E11.319 Type 2 diabetes mellitus with unspecified diabetic retinopathy without macular edema; E11.40 Type 2 diabetes mellitus with diabetic neuropathy, unspecified; I16.0 Hypertensive urgency; E11.65 Type 2 diabetes mellitus with hyperglycemia; Z91.148 Patient's other noncompliance with medication regimen for other reason; Z85.038 Personal history of other malignant neoplasm of large intestine
CPT/HCPCS: 0241U-QW; 36415; 71045-TC-FY; 80053; 80197; 81003; 82803; 82962; 83036; 83735; 83880; 84100; 84484; 85025; 85027; 85610; 85730; 86850; 86900; 86901; 87040; 87086; 93005; 93010; 93971-TC; 94660; 94761; 97116-GP; 97161-GP; 99291; J1644; J7517

== ENCOUNTER 2023-08-10 17:44 | Inpatient (IN) | payer OTHER, BC ==
[2023-08-10] MEDS ORDERED: ACETAMINOPHEN 325 MG TABLET (FP) ONE (20:31)
[2023-08-10] MEDS: ACETAMINOPHEN 325 MG TABLET (FP) PO ONE (20:32)
[2023-08-10 20:43] LABS: BASO % 0.6 % (0-2.0); EOS % 1.1 % (0-4.5); HEMOGLOBIN 10.3 GM/dL (10.7-15.3); LYMPH % 15.4 % (8-40); MCH 23.9 pg (25.7-33.7); MCHC 32.2 g/dl (32.0-36.0); MEAN CELL VOLUME 74.2 fl (80-96); MONO % 4.2 % (3.8-10.2); NEUT % 78.7 % (42.8-82.8); PLATELET COUNT 293 10^3/uL (134-434); RBC 4.31 M/mm3 (3.60-5.2); RDW 19.6 % (11.6-15.6); WHITE BLOOD COUNT 6.9 K/mm3 (4.0-10.0)
[2023-08-10 20:51] LABS: PROTHROMBIN TIME (PATIENT) 11.6 SEC (9.7-13.0)
[2023-08-10 20:54] LABS: ACTIVATED PTT 30.5 SECONDS (25.2-36.5)
[2023-08-10 21:05] LABS: CHLORIDE 108 mmol/L (98-107); POTASSIUM 5.1 mmol/L (3.5-5.1); SODIUM 136 mmol/L (136-145)
[2023-08-10 21:09] LABS: CALCIUM 8.6 mg/dL (8.5-10.1)
[2023-08-10 21:11] LABS: ANION GAP 5 mmol/L (4-13); BLOOD UREA NITROGEN 35.8 mg/dL (7-18); CO2 24 mmol/L (21-32); GLUCOSE,RANDOM 200 mg/dL (74-106)
[2023-08-10 21:12] LABS: SGPT/ALT 19 U/L (13-61)
[2023-08-10 21:13] LABS: CREATININE 1.7 mg/dL (0.55-1.3); SGOT/AST 14 U/L (15-37)
[2023-08-10 21:14] LABS: BILIRUBIN,TOTAL 0.6 mg/dL (0.2-1); TOT PROT 7.2 g/dl (6.4-8.2)
[2023-08-10 21:15] LABS: ALK PHOS 49 U/L (45-117)
[2023-08-10 21:41] LABS: ALBUMIN 4.1 g/dl (3.4-5.0)
[2023-08-10 22:10] LABS: ERYTHROCYTE SEDIMENTATION RATE 11 mm/hr (0-30)
[2023-08-10 22:52] LABS: N-TERMINAL BNP 3819.4 pg/ml (5-125)
[2023-08-10] MEDS: SODIUM CHLORIDE 0.9% 500 ML INFUS.BAG IV ONE (23:57)
[2023-08-11] MEDS ORDERED: ONDANSETRON 4 MG/2 ML VIAL ONE (00:19)
[2023-08-11] MEDS ORDERED: morphine SULFATE 4 MG/ML VIAL ONE (00:19)
[2023-08-11] MEDS: morphine SULFATE 4 MG/ML VIAL IVPUSH ONE (00:24)
[2023-08-11] MEDS: ONDANSETRON 4 MG/2 ML VIAL IVPUSH ONE (00:25)
[2023-08-11] MEDS ORDERED: NITROGLYCERIN SUBLINGUAL 1/150 0.4 MG TAB SL PRN (02:36)
[2023-08-11] MEDS ORDERED: COLCHICINE 0.6 MG TAB ONE ×2 (03:21→03:49)
[2023-08-11] MEDS: COLCHICINE 0.6 MG TAB PO ONE ×2 (03:28→03:50)
[2023-08-11] MEDS: SODIUM CHLORIDE 1,000 ML IV SCH (03:28)
[2023-08-11] MEDS ORDERED: ACETAMINOPHEN 325 MG TABLET (FP) PO PRN (04:10)
[2023-08-11] MEDS ORDERED: hydrALAZINE HCL 10 MG TABLET ONE ×2 (05:34→14:36)
[2023-08-11] MEDS ORDERED: HEPARIN NA (PORCINE) 5,000 UNITS/ML 1ML VIAL ONE ×3 (05:35→20:56)
[2023-08-11] MEDS: HEPARIN NA (PORCINE) 5,000 UNITS/ML 1ML VIAL SQ SCH (05:37)
[2023-08-11] MEDS: hydrALAZINE HCL 10 MG TABLET PO SCH (05:37)
[2023-08-11] MEDS: INSULIN ASPART SLIDING SCALE (NOVOLOG) 1 VIAL SQ SCH (08:05)
[2023-08-11] MEDS: INSULIN (NOVOLOG) ASPART 100 UNITS/ML 10ML VIAL SQ SCH (08:06)
[2023-08-11] MEDS ORDERED: INSULIN (NOVOLOG) ASPART 100 UNITS/ML 10ML VIAL ONE (08:10)
[2023-08-11 08:35] LABS: POTASSIUM 5.7 mmol/L (3.5-5.1)
[2023-08-11 08:37] LABS: BASO % 0.3 % (0-2.0); EOS % 0.8 % (0-4.5); HEMATOCRIT 29.7 % (32.4-45.2); HEMOGLOBIN 9.2 GM/dL (10.7-15.3); LYMPH % 16.1 % (8-40); MCH 23.5 pg (25.7-33.7); MEAN CELL VOLUME 75.8 fl (80-96); MEAN PLT VOLUME 7.4 fl (7.5-11.1); MONO % 5.4 % (3.8-10.2); NEUT % 77.4 % (42.8-82.8); PLATELET COUNT 253 10^3/uL (134-434); RBC 3.92 M/mm3 (3.60-5.2); RDW 19.3 % (11.6-15.6); WHITE BLOOD COUNT 7.3 K/mm3 (4.0-10.0)
[2023-08-11 08:38] LABS: BLOOD UREA NITROGEN 35.7 mg/dL (7-18); CALCIUM 8.1 mg/dL (8.5-10.1)
[2023-08-11 08:39] LABS: ALBUMIN 3.5 g/dl (3.4-5.0); MAGNESIUM 2.3 mg/dL (1.8-2.4)
[2023-08-11 08:41] LABS: PHOSPHOROUS 5.5 mg/dL (2.5-4.9)
[2023-08-11 08:42] LABS: CREATININE 1.8 mg/dL (0.55-1.3)
[2023-08-11 08:43] LABS: BILIRUBIN,TOTAL 0.7 mg/dL (0.2-1); TOT PROT 6.5 g/dl (6.4-8.2)
[2023-08-11] MEDS ORDERED: ACETAMINOPHEN 325 MG TABLET (FP) ONE ×2 (09:07→22:19)
[2023-08-11] MEDS: TACROLIMUS ANHYDROUS 1 MG CAPSULE PO SCH (09:11)
[2023-08-11] MEDS: CARVEDILOL 25 MG TABLET (FP) PO SCH (09:11)
[2023-08-11] MEDS: ASPIRIN COATED 81 MG TABLET.EC PO SCH (09:11)
[2023-08-11] MEDS: MYCOPHENOLATE MOFETIL 500 MG TABLET PO SCH (09:11)
[2023-08-11] MEDS: CALCITRIOL 0.25 MCG CAPSULE (FP) PO SCH (09:11)
[2023-08-11] MEDS: CLOPIDOGREL BISULFATE 75 MG TABLET (FP) PO SCH (09:11)
[2023-08-11] MEDS: COLCHICINE 0.6 MG CAPSULE PO SCH (09:11)
[2023-08-11] MEDS: ACETAMINOPHEN 325 MG TABLET (FP) PO PRN (09:12)
[2023-08-11] MEDS ORDERED: CEFAZOLIN 1 GM in DEXTROSE 5%-WATER - 50 ML IVPB SCH (11:15)
[2023-08-11] MEDS ORDERED: SODIUM ZIRCONIUM CYCLOSILICATE (LOKELMA) 10 GM PACKET ONE (11:47)
[2023-08-11] MEDS ORDERED: ceFAZolin SODIUM 1 GM VIAL ONE ×2 (11:48→20:56)
[2023-08-11] MEDS: SODIUM CHLORIDE 500 ML IV SCH (11:48)
[2023-08-11] MEDS: SODIUM ZIRCONIUM CYCLOSILICATE (LOKELMA) 5 GM PACKET PO SCH (11:48)
[2023-08-11] MEDS: CEFAZOLIN 1 GM in SODIUM CHLORIDE 50 ML IVPB SCH (11:49)
[2023-08-11] MEDS ORDERED: INSULIN (LEVEMIR) 100 UNITS/ML UNITS SQ ONE (20:57)
[2023-08-11] MEDS: ATORVASTATIN CA 80 MG TABLET (FP) PO SCH (21:42)
[2023-08-11] MEDS: INSULIN (LEVEMIR) 100 UNITS/ML UNITS SQ SCH (22:13)
[2023-08-12] MEDS ORDERED: HEPARIN NA (PORCINE) 5,000 UNITS/ML 1ML VIAL ONE ×2 (04:58→14:50)
[2023-08-12] MEDS ORDERED: hydrALAZINE HCL 10 MG TABLET ONE ×3 (04:58→15:12)
[2023-08-12 08:01] LABS: BASO % 0.3 % (0-2.0); EOS % 0.9 % (0-4.5); HEMATOCRIT 28.4 % (32.4-45.2); HEMOGLOBIN 9.3 GM/dL (10.7-15.3); LYMPH % 15.5 % (8-40); MCH 24.2 pg (25.7-33.7); MCHC 32.7 g/dl (32.0-36.0); MEAN CELL VOLUME 74.1 fl (80-96); MEAN PLT VOLUME 7.3 fl (7.5-11.1); MONO % 7.6 % (3.8-10.2); NEUT % 75.7 % (42.8-82.8); PLATELET COUNT 229 10^3/uL (134-434); RBC 3.83 M/mm3 (3.60-5.2); RDW 19.5 % (11.6-15.6); WHITE BLOOD COUNT 6.4 K/mm3 (4.0-10.0)
[2023-08-12 08:31] LABS: POTASSIUM 5.1 mmol/L (3.5-5.1)
[2023-08-12 08:44] LABS: ALBUMIN 3.3 g/dl (3.4-5.0); BLOOD UREA NITROGEN 42.3 mg/dL (7-18); CALCIUM 8.5 mg/dL (8.5-10.1); MAGNESIUM 2.2 mg/dL (1.8-2.4)
[2023-08-12 08:47] LABS: CREATININE 1.8 mg/dL (0.55-1.3); PHOSPHOROUS 4.6 mg/dL (2.5-4.9)
[2023-08-12 08:48] LABS: BILIRUBIN,TOTAL 0.5 mg/dL (0.2-1); TOT PROT 6.4 g/dl (6.4-8.2)
[2023-08-12] MEDS: VANCOMYCIN 1,000 MG in DEXTROSE 5%-WATER - 250 ML IVPB ONE (09:15)
[2023-08-12] MEDS ORDERED: COLCHICINE 0.6 MG TAB PO SCH (10:00)
[2023-08-12] MEDS ORDERED: ISOSORBIDE DINITRATE 10 MG TABLET PO SCH (16:00)
[2023-08-12] MEDS: EMPAGLIFLOZIN (JARDIANCE) 10 MG TABLET PO SCH (16:34)
[2023-08-12] MEDS ORDERED: oxyCODONE HCL 5 MG TABLET PO PRN (16:57)
[2023-08-12] MEDS ORDERED: NITROGLYCERIN SUBLINGUAL 1/150 0.4 MG TAB SL PRN (17:03)
[2023-08-12] MEDS: SODIUM CHLORIDE 0.45% 1,000 ML IV SCH (17:59)
[2023-08-12] MEDS: ACETAMINOPHEN 1000 MG/100 ML BAG IVPB PRN (18:02)
[2023-08-12] MEDS: hydrALAZINE HCL 10 MG TABLET PO SCH (22:32)
[2023-08-12] MEDS: ATORVASTATIN CA 80 MG TABLET (FP) PO SCH (22:33)
[2023-08-12] MEDS: HEPARIN NA (PORCINE) 5,000 UNITS/ML 1ML VIAL SQ SCH (22:33)
[2023-08-12] MEDS: CARVEDILOL 25 MG TABLET (FP) PO SCH (22:33)
[2023-08-12] MEDS: INSULIN (LEVEMIR) 100 UNITS/ML UNITS SQ SCH (22:34)
[2023-08-12] MEDS: TACROLIMUS ANHYDROUS 1 MG CAPSULE PO SCH (22:36)
[2023-08-13] MEDS: MYCOPHENOLATE MOFETIL 500 MG TABLET PO SCH (02:56)
[2023-08-13] MEDS ORDERED: DEXTROSE 50%-WATER 25 GM/50 ML DISP.SYRIN ONE (05:47)
[2023-08-13] MEDS: DEXTROSE 50%-WATER 25 GM/50 ML DISP.SYRIN IVPUSH ONE (05:55)
[2023-08-13] MEDS: INSULIN (NOVOLOG) ASPART 100 UNITS/ML 10ML VIAL SQ SCH (06:06)
[2023-08-13] MEDS: INSULIN ASPART SLIDING SCALE (NOVOLOG) 1 VIAL SQ SCH (06:06)
[2023-08-13] MEDS: ISOSORBIDE DINITRATE 10 MG TABLET PO SCH (08:07)
[2023-08-13] MEDS: CALCITRIOL 0.25 MCG CAPSULE (FP) PO SCH (09:06)
[2023-08-13] MEDS: CLOPIDOGREL BISULFATE 75 MG TABLET (FP) PO SCH (09:06)
[2023-08-13] MEDS: ASPIRIN COATED 81 MG TABLET.EC PO SCH (09:06)
[2023-08-13 11:32] LABS: BASO % 0.2 % (0-2.0); EOS % 0.8 % (0-4.5); HEMOGLOBIN 9.8 GM/dL (10.7-15.3); LYMPH % 11.3 % (8-40); MCH 24.3 pg (25.7-33.7); MCHC 32.7 g/dl (32.0-36.0); MEAN CELL VOLUME 74.1 fl (80-96); MEAN PLT VOLUME 7.2 fl (7.5-11.1); MONO % 5.3 % (3.8-10.2); NEUT % 82.4 % (42.8-82.8); PLATELET COUNT 222 10^3/uL (134-434); RBC 4.05 M/mm3 (3.60-5.2); RDW 19.4 % (11.6-15.6)
[2023-08-13 11:46] LABS: POTASSIUM 4.5 mmol/L (3.5-5.1)
[2023-08-13 11:50] LABS: ALBUMIN 3.1 g/dl (3.4-5.0); BLOOD UREA NITROGEN 36.9 mg/dL (7-18); CALCIUM 8.8 mg/dL (8.5-10.1); MAGNESIUM 2.4 mg/dL (1.8-2.4)
[2023-08-13 11:53] LABS: PHOSPHOROUS 4.4 mg/dL (2.5-4.9)
[2023-08-13 11:55] LABS: BILIRUBIN,TOTAL 0.5 mg/dL (0.2-1); CREATININE 1.7 mg/dL (0.55-1.3); TOT PROT 6.4 g/dl (6.4-8.2)
[2023-08-13 16:12] VITALS: BMI 21.1
[2023-08-13] MEDS: SODIUM CHLORIDE 0.45% 1,000 ML IV SCH (16:42)
[2023-08-13] MEDS: LORATADINE 10 MG TABLET PO ONE (16:52)
[2023-08-13] MEDS: VANCOMYCIN 250 MG/5 ML ORAL SOLUTION PO SCH (17:03)
[2023-08-13 21:27] VITALS: PULSE 76
[2023-08-13] MEDS ORDERED: INSULIN (LEVEMIR) 100 UNITS/ML UNITS SQ SCH (22:00)
[2023-08-13 22:09] LABS: EPI CELLS 14 /uL (0-25.1); HYALINE CASTS 3 /uL (0-3.1); PH,URINE 5.5 (5.0-8.0); URINE APPEARANCE CLEAR; URINE BACTERIA 10 /uL (0-1359); URINE BILIRUBIN NEGATIVE (NEGATIVE); URINE COLOR YELLOW; URINE GLUCOSE (UA) 2+ (NEGATIVE); URINE KETONE NEGATIVE (NEGATIVE); URINE LEUK ESTERASE NEGATIVE (NEGATIVE); URINE NITRITE NEGATIVE (NEGATIVE); URINE PROTEIN 2+ (NEGATIVE); URINE RBC 16 /uL (0-23.9); URINE UROBILINOGEN 0.2 mg/dL (0.2-1.0); URINE WBC 21 /uL (0-25.8)
[2023-08-14] MEDS: diphenhydrAMINE HCL 25 MG CAPSULE (FP) PO ONE (00:54)
[2023-08-14 05:28] VITALS: RESP 18; TEMP 98.1
[2023-08-14] MEDS: INSULIN (LEVEMIR) 100 UNITS/ML UNITS SQ SCH (09:17)
[2023-08-14 09:31] VITALS: BP 128/75
[2023-08-14 10:21] LABS: HEMATOCRIT 28.1 % (32.4-45.2); HEMOGLOBIN 9.1 GM/dL (10.7-15.3); MCH 24.1 pg (25.7-33.7); MCHC 32.6 g/dl (32.0-36.0); MEAN CELL VOLUME 74.1 fl (80-96); MEAN PLT VOLUME 7.6 fl (7.5-11.1); PLATELET COUNT 205 10^3/uL (134-434); RBC 3.79 M/mm3 (3.60-5.2); RDW 19.5 % (11.6-15.6); WHITE BLOOD COUNT 4.9 K/mm3 (4.0-10.0)
[2023-08-14 10:36] LABS: POTASSIUM 4.7 mmol/L (3.5-5.1)
[2023-08-14 10:38] LABS: CALCIUM 8.5 mg/dL (8.5-10.1)
[2023-08-14 10:39] LABS: BLOOD UREA NITROGEN 31.8 mg/dL (7-18)
[2023-08-14 10:40] LABS: ALBUMIN 3.2 g/dl (3.4-5.0)
[2023-08-14 10:41] LABS: CREATININE 1.7 mg/dL (0.55-1.3)
[2023-08-14 10:43] LABS: BILIRUBIN,TOTAL 0.4 mg/dL (0.2-1); TOT PROT 6.4 g/dl (6.4-8.2)
== END 2023-08-14 14:49 | disposition home or self-care (01) | DRG 699 ==
LOC: JER 17:44 → JERBED 08-11 00:24 → J6S 08-12 15:52
PROVIDERS: ADMIT Internal Medicine; ATTEND Internal Medicine
DX: T86.19 Other complication of kidney transplant (principal); A04.72 Enterocolitis due to Clostridium difficile, not specified as recurrent; D84.9 Immunodeficiency, unspecified; I24.89 Other forms of acute ischemic heart disease; N17.9 Acute kidney failure, unspecified; I50.42 Chronic combined systolic (congestive) and diastolic (congestive) heart failure; I25.10 Atherosclerotic heart disease of native coronary artery without angina pectoris; J44.9 Chronic obstructive pulmonary disease, unspecified; K21.9 Gastro-esophageal reflux disease without esophagitis; D50.9 Iron deficiency anemia, unspecified; I80.8 Phlebitis and thrombophlebitis of other sites; M77.8 Other enthesopathies, not elsewhere classified; I11.0 Hypertensive heart disease with heart failure; E87.5 Hyperkalemia; E11.319 Type 2 diabetes mellitus with unspecified diabetic retinopathy without macular edema; E11.40 Type 2 diabetes mellitus with diabetic neuropathy, unspecified; E11.649 Type 2 diabetes mellitus with hypoglycemia without coma; Y83.0 Surgical operation with transplant of whole organ as the cause of abnormal reaction of the patient, or of later complication, without mention of misadventure at the time of the procedure
CPT/HCPCS: 36415; 71045-TC-FY; 73110-TC-LT-FY; 73130-TC-LT-FY; 80053; 80197; 81003; 82962; 83735; 83880; 84100; 84484; 84550; 85025; 85027; 85610; 85651; 85730; 86140; 87040; 87324; 87449; 87493; 93005; 93010; 93970-TC; 93975; 99285-25; J0131; J1644; J7517

== ENCOUNTER 2024-01-16 13:13 | Inpatient (IN) | payer OTHER, BC ==
[2024-01-16 13:33] VITALS: BMI 19.6
[2024-01-16] MEDS: morphine SULFATE 4 MG/ML VIAL IVPUSH ONE (14:11)
[2024-01-16] MEDS ORDERED: MORPHINE SULFATE 2 MG/ML SYRINGE ONE ×2 (14:19→20:41)
[2024-01-16] MEDS ORDERED: ASPIRIN 81 MG CHEWABLE TABLETS ONE (14:20)
[2024-01-16 14:24] LABS: POTASSIUM 5.5 mmol/L (3.5-5.1)
[2024-01-16 14:25] LABS: CALCIUM 8.7 mg/dL (8.5-10.1)
[2024-01-16 14:27] LABS: ALBUMIN 3.9 g/dl (3.4-5.0); BLOOD UREA NITROGEN 60.4 mg/dL (7-18)
[2024-01-16 14:32] LABS: BILIRUBIN,TOTAL 1.3 mg/dL (0.2-1); TOT PROT 7.2 g/dl (6.4-8.2)
[2024-01-16 14:34] LABS: N-TERMINAL BNP 19270.5 pg/ml (5-125)
[2024-01-16] MEDS: morphine CARPU-JECT 8 MG/1 ML DISP.SYRIN IVPUSH ONE (14:35)
[2024-01-16] MEDS: ASPIRIN 81 MG CHEWABLE TABLETS PO ONE (14:35)
[2024-01-16 14:58] LABS: HEMATOCRIT 31.7 % (32.4-45.2); HEMOGLOBIN 9.7 GM/dL (10.7-15.3); MCH 21.7 pg (25.7-33.7); MCHC 30.8 g/dl (32.0-36.0); MEAN CELL VOLUME 70.4 fl (80-96); MEAN PLT VOLUME 8.1 fl (7.5-11.1); PLATELET COUNT 183 10^3/uL (134-434); RDW 23.1 % (11.6-15.6)
[2024-01-16 15:04] LABS: INR 1.05 (0.83-1.09); PROTHROMBIN TIME (PATIENT) 12.1 SEC (9.7-13.0)
[2024-01-16 15:07] LABS: ACTIVATED PTT 27.6 SECONDS (25.2-36.5)
[2024-01-16] MEDS ORDERED: FUROSEMIDE 40 MG/4 ML INJECTABLE VIAL ONE ×2 (15:13→18:12)
[2024-01-16 15:25] LABS: ANISOCYTOSIS 3+; MACROCYTOSIS 0
[2024-01-16] MEDS: FUROSEMIDE 40 MG/4 ML INJECTABLE VIAL IVPUSH ONE ×2 (15:26→18:20)
[2024-01-16] MEDS ORDERED: ALBUTEROL SO4 HFA INHALER IH PRN (18:02)
[2024-01-16] MEDS ORDERED: ASPIRIN COATED 81 MG TABLET.EC ONE (18:40)
[2024-01-16] MEDS ORDERED: CLOPIDOGREL BISULFATE 75 MG TABLET (FP) ONE (18:41)
[2024-01-16] MEDS: CLOPIDOGREL BISULFATE 75 MG TABLET (FP) PO SCH (18:43)
[2024-01-16] MEDS: ASPIRIN COATED 81 MG TABLET.EC PO SCH (18:43)
[2024-01-16] MEDS: MORPHINE SULFATE 2 MG/ML SYRINGE IVPUSH ONE (20:54)
[2024-01-16] MEDS ORDERED: TACROLIMUS ANHYDROUS 1 MG CAPSULE PO SCH (22:00)
[2024-01-16] MEDS: CARVEDILOL 25 MG TABLET (FP) PO SCH (22:38)
[2024-01-16] MEDS: ATORVASTATIN CA 80 MG TABLET (FP) PO SCH (22:38)
[2024-01-16] MEDS: MYCOPHENOLATE MOFETIL 500 MG TABLET PO SCH (23:20)
[2024-01-16] MEDS: TACROLIMUS ANHYDROUS 2 MG, TACROLIMUS ANHYDROUS 0.5 MG PO SCH (23:21)
[2024-01-17] MEDS: ACETAMINOPHEN 1000 MG/100 ML BAG IVPB ONE (01:21)
[2024-01-17] MEDS: morphine SULFATE 4 MG/ML VIAL IVPUSH ONE (01:33)
[2024-01-17 07:10] LABS: HEMATOCRIT 28.3 % (32.4-45.2); HEMOGLOBIN 8.8 GM/dL (10.7-15.3); MCH 22.2 pg (25.7-33.7); MCHC 31.2 g/dl (32.0-36.0); MEAN PLT VOLUME 8.1 fl (7.5-11.1); PLATELET COUNT 152 10^3/uL (134-434); RBC 3.99 M/mm3 (3.60-5.2); RDW 22.4 % (11.6-15.6)
[2024-01-17 07:19] LABS: CHLORIDE 100 mmol/L (98-107); POTASSIUM 4.7 mmol/L (3.5-5.1); SODIUM 135 mmol/L (136-145)
[2024-01-17 07:22] LABS: ANION GAP 9 mmol/L (4-13); BLOOD UREA NITROGEN 68.5 mg/dL (7-18); CO2 26 mmol/L (21-32); MAGNESIUM 1.8 mg/dL (1.8-2.4)
[2024-01-17 07:25] LABS: PHOSPHOROUS 5.4 mg/dL (2.5-4.9)
[2024-01-17 08:34] LABS: GLUCOSE,RANDOM 418 mg/dL (74-106)
[2024-01-17] MEDS ORDERED: amLODIPine BESYLATE 10 MG TABLET (FP) PO SCH (10:00)
[2024-01-17] MEDS: ENOXAPARIN NA (PORCINE) 30 MG/0.3 ML DISP.SYRIN SQ SCH (10:12)
[2024-01-17] MEDS: FUROSEMIDE 40 MG/4 ML INJECTABLE VIAL IVPUSH SCH (10:14)
[2024-01-17] MEDS: CALCITRIOL 0.25 MCG CAPSULE (FP) PO SCH (10:14)
[2024-01-17] MEDS ORDERED: INSULIN ASPART SLIDING SCALE (NOVOLOG) 1 VIAL SQ SCH (11:30)
[2024-01-17] MEDS: INSULIN ASPART SLIDING SCALE (NOVOLOG) 1 VIAL SQ SCH (12:59)
[2024-01-17] MEDS ORDERED: ACETAMINOPHEN 1000 MG/100 ML BAG IVPB PRN (13:56)
[2024-01-17] MEDS: predniSONE 5 MG TABLET (UD) PO SCH (15:29)
[2024-01-17] MEDS: oxyCODONE HCL 5 MG TABLET PO PRN (17:49)
[2024-01-17] MEDS: hydrALAZINE HCL 25 MG TABLET (FP) PO SCH (21:52)
[2024-01-17] MEDS: ATORVASTATIN CA 40 MG TABLET (FP) PO SCH (21:53)
[2024-01-17] MEDS: ALPRAZolam 0.25 MG TABLET PO PRN (21:53)
[2024-01-18 06:33] LABS: BASO % 0.2 % (0-2.0); EOS % 0.2 % (0-4.5); HEMATOCRIT 31.6 % (32.4-45.2); HEMOGLOBIN 9.6 GM/dL (10.7-15.3); LYMPH % 8.1 % (8-40); MCH 22.1 pg (25.7-33.7); MCHC 30.2 g/dl (32.0-36.0); MONO % 5.8 % (3.8-10.2); NEUT % 85.7 % (42.8-82.8); PLATELET COUNT 136 10^3/uL (134-434); RBC 4.34 M/mm3 (3.60-5.2); RDW 22.4 % (11.6-15.6)
[2024-01-18 06:54] LABS: CHLORIDE 100 mmol/L (98-107); POTASSIUM 4.6 mmol/L (3.5-5.1); SODIUM 136 mmol/L (136-145)
[2024-01-18 06:55] LABS: CALCIUM 8.1 mg/dL (8.5-10.1)
[2024-01-18 06:57] LABS: ALBUMIN 3.7 g/dl (3.4-5.0); ANION GAP 11 mmol/L (4-13); BLOOD UREA NITROGEN 63.3 mg/dL (7-18); CO2 25 mmol/L (21-32); MAGNESIUM 1.9 mg/dL (1.8-2.4)
[2024-01-18 07:00] LABS: CREATININE 1.7 mg/dL (0.55-1.3); PHOSPHOROUS 4.5 mg/dL (2.5-4.9); SGOT/AST 12 U/L (15-37); SGPT/ALT 31 U/L (13-61)
[2024-01-18 07:01] LABS: BILIRUBIN,TOTAL 1.1 mg/dL (0.2-1); TOT PROT 6.9 g/dl (6.4-8.2)
[2024-01-18 07:03] LABS: ALK PHOS 93 U/L (45-117)
[2024-01-18 07:37] LABS: GLUCOSE,RANDOM 469 mg/dL (74-106)
[2024-01-18] MEDS: INSULIN (LEVEMIR) 100 UNITS/ML UNITS SQ ONE (09:45)
[2024-01-18] MEDS: FUROSEMIDE 40 MG/4 ML INJECTABLE VIAL IVPUSH SCH (09:47)
[2024-01-18] MEDS ORDERED: INSULIN (LEVEMIR) 100 UNITS/ML UNITS SQ SCH ×3 (10:00→22:00)
[2024-01-18] MEDS ORDERED: ISOSORBIDE MONONITRATE 30 MG TAB.SR.24H (FP) PO SCH (10:00)
[2024-01-18] MEDS: ISOSORBIDE DINITRATE 10 MG TABLET PO SCH (10:31)
[2024-01-18] MEDS: INSULIN (NOVOLOG) ASPART 100 UNITS/ML 10ML VIAL SQ SCH (10:34)
[2024-01-18] MEDS: INSULIN (LEVEMIR) 100 UNITS/ML UNITS SQ SCH (22:23)
[2024-01-19] MEDS: hydrALAZINE HCL 20 MG/ML VIAL IVPUSH ONE (03:00)
[2024-01-19] MEDS: INSULIN (LEVEMIR) 100 UNITS/ML UNITS SQ SCH (06:18)
[2024-01-19 06:35] LABS: BASO % 0.4 % (0-2.0); EOS % 0.7 % (0-4.5); HEMATOCRIT 30.3 % (32.4-45.2); HEMOGLOBIN 9.4 GM/dL (10.7-15.3); LYMPH % 13.9 % (8-40); MCH 22.1 pg (25.7-33.7); MCHC 31.1 g/dl (32.0-36.0); MONO % 8.2 % (3.8-10.2); NEUT % 76.8 % (42.8-82.8); PLATELET COUNT 137 10^3/uL (134-434); RBC 4.26 M/mm3 (3.60-5.2); RDW 21.8 % (11.6-15.6)
[2024-01-19 07:02] LABS: POTASSIUM 4.3 mmol/L (3.5-5.1)
[2024-01-19 07:04] LABS: ALBUMIN 3.3 g/dl (3.4-5.0); CALCIUM 8.3 mg/dL (8.5-10.1)
[2024-01-19 07:07] LABS: BLOOD UREA NITROGEN 63.6 mg/dL (7-18); CREATININE 1.6 mg/dL (0.55-1.3)
[2024-01-19 07:09] LABS: BILIRUBIN,TOTAL 0.9 mg/dL (0.2-1); TOT PROT 6.4 g/dl (6.4-8.2)
[2024-01-19] MEDS: amLODIPine BESYLATE 5 MG TABLET (FP) PO SCH (09:34)
[2024-01-19 12:05] VITALS: RESP 18
[2024-01-19] MEDS: hydrALAZINE HCL 25 MG TABLET (FP) PO SCH (13:21)
[2024-01-19] MEDS: ISOSORBIDE DINITRATE 20 MG TABLET PO SCH (13:22)
[2024-01-19] MEDS ORDERED: cloNIDine-TTS 0.2 MG/24 HOURS PATCH.TDWK TD SCH (15:30)
[2024-01-19] MEDS: cloNIDine-TTS 0.2 MG/24 HOURS PATCH.TDWK TD SCH (17:45)
[2024-01-19 18:51] VITALS: BP 162/67; PULSE 65; TEMP 97.6
[2024-01-24] MEDS ORDERED: cloNIDine-TTS 0.2 MG/24 HOURS PATCH.TDWK TD SCH (10:00)
== END 2024-01-19 18:27 | disposition short-term general hospital (02) | DRG 291 ==
LOC: JER 13:13 → OBSVTOIN 15:22 → JERBED 15:22 → J4S 21:24
PROVIDERS: ADMIT Internal Medicine; ATTEND Internal Medicine
DX: I11.0 Hypertensive heart disease with heart failure (principal); I50.43 Acute on chronic combined systolic (congestive) and diastolic (congestive) heart failure; N17.9 Acute kidney failure, unspecified; K86.1 Other chronic pancreatitis; T86.19 Other complication of kidney transplant; E44.0 Moderate protein-calorie malnutrition; Z68.1 Body mass index [BMI] 19.9 or less, adult; J44.1 Chronic obstructive pulmonary disease with (acute) exacerbation; I25.10 Atherosclerotic heart disease of native coronary artery without angina pectoris; E11.319 Type 2 diabetes mellitus with unspecified diabetic retinopathy without macular edema; E11.40 Type 2 diabetes mellitus with diabetic neuropathy, unspecified; I16.0 Hypertensive urgency; Y83.0 Surgical operation with transplant of whole organ as the cause of abnormal reaction of the patient, or of later complication, without mention of misadventure at the time of the procedure; E11.65 Type 2 diabetes mellitus with hyperglycemia
CPT/HCPCS: 0241U-QW; 36415; 71045-TC-FY; 76776-TC; 80048; 80053; 80197; 82962; 83036; 83735; 83880; 84100; 84484; 85025; 85027; 85610; 85730; 93005; 93010; 93306-TC; 97116-GP; 97161-GP; 99285-25; J7517